=== PATIENT | male | born 1940 | race Asian ===

== ENCOUNTER 2016-07-05 01:57 | Inpatient (IN) | payer OTHER, MEDICAID ==
--- NOTE | 2016-07-05 02:03 | ED Physician Chart ---
Chief Complaint/HPI - Patient Information Date Seen:: 07/05/16 Time Seen:: 02:00 Chief Complaint:: abnormal labs History of Present Illness:: 76-year-old male with acute, moderate, abnormal labs that were noted yesterday evening. Noted to have slight leukocytosis and elevated BUN. History limited as patient is averbal with tracheostomy and ventilator History provided by EMS, EMS run sheet and transfer documents Historian:: EMS Review:: Nurse's Note Reviewed, EMS run form Reviewed, Transfer documents Reviewed Review of Systems - Review of Systems Other: Complete system review otherwise unremarkable except as noted in HPI. Past Medical History - Past Medical History Past Medical History: HTN, DM, CVA/TIA, PUD/GERD Family History: None Social History: Non Smoker, No Alcohol, No Drug Use, Care Facility Surgical History: other (tracheostomy) Psychiatricy History: Dementia Medication: Reviewed Family Medical History - Family Member Mother History Unknown: Yes Physical Exam - Physical Examination Other:: INITIAL VITAL SIGNS: Reviewed by me GENERAL: Patient is lying on gurney. He is alert but averbal. HEAD: Head is normocephalic. No evidence of trauma. No scalp or facial swelling EYES: No scleral icterus bilaterally ENT: Oropharynx is clear of exudate and erythema NECK: Supple. No meningismus. No masses. No evidence of trauma. No cervical spine bony step-offs or crepitus to palpation RESPIRATORY: Tracheostomy in place on ventilator. Clear to auscultation bilaterally. CV: Regular rate and rhythm. No murmurs, rubs, or gallops ABDOMEN: Soft, non-distended. No masses BACK: No ecchymoses. No evidence of trauma EXTREMITIES: Normal to inspection and palpation. No deformity SKIN: Warm and dry. No obvious rash. No jaundice NEUROLOGIC: Face is symmetric. Withdraws to pain in all extremities Labs/Radiology/EKG Results - Lab Results Results: Lab Results 07/05/16 07/05/16 07/05/16 Range/Units 02:15 02:15 02:15 WBC 10.9 H (4.8-10.8) Th/cmm RBC 2.88 L (3.80-5.80) Mil/cmm Hgb 8.1 L (12.6-17.4) gm/dL Hct 23.3 L* (39.0-49.0) % MCV 80.7 (80-99) fl MCH 28.2 (27.0-31.0) pg MCHC Differential 34.9 (28.0-36.0) pg RDW 16.2 (11.5-20.0) % Plt Count 381 (150-400) Th/cmm MPV 6.8 fl Neutrophils % 54.4 (40.0-80.0) % Lymphocytes % 25.8 (20.0-50.0) % Monocytes % 6.9 (2.0-10.0) % Eosinophils % 12.0 H (0.0-5.0) % Basophils % 0.9 (0.0-2.0) % PT 9.1 L (9.5-11.5) SECONDS INR 0.92 (0.5-1.4) PTT (Actin FS) 28.1 (26.0-38.0) SECONDS Sodium 125 L (136-145) mEq/L Potassium 4.5 (3.5-5.1) mEq/L Chloride 91 L (98-107) mEq/L Carbon Dioxide 30.5 (21.0-31.0) mEq/L Anion Gap 8.0 (7.0-16.0) BUN 33 H (7-25) mg/dL Creatinine 0.7 (0.7-1.3) mg/dL Est GFR ( Amer) TNP Est GFR (Non-Af Amer) TNP BUN/Creatinine Ratio 47.1 Glucose 215 H (70-105) mg/dL Whole Bld Lactic Acid (0.60-2.00) mmol/L Calcium 10.0 (8.6-10.3) mg/dL Total Bilirubin 0.4 (0.3-1.0) mg/dL AST 13 (13-39) U/L ALT 9 (7-52) U/L Alkaline Phosphatase 116 H (34-104) U/L Creatine Kinase 60 (30-223) U/L Total Protein 7.3 (6.0-8.3) gm/dL Albumin 3.2 L (4.2-5.5) gm/dL Globulin 4.1 gm/dL Albumin/Globulin Ratio 0.8 L (1.0-1.8) 07/05/16 Range/Units 02:15 WBC (4.8-10.8) Th/cmm RBC (3.80-5.80) Mil/cmm Hgb (12.6-17.4) gm/dL Hct (39.0-49.0) % MCV (80-99) fl MCH (27.0-31.0) pg MCHC Differential (28.0-36.0) pg RDW (11.5-20.0) % Plt Count (150-400) Th/cmm MPV fl Neutrophils % (40.0-80.0) % Lymphocytes % (20.0-50.0) % Monocytes % (2.0-10.0) % Eosinophils % (0.0-5.0) % Basophils % (0.0-2.0) % PT (9.5-11.5) SECONDS INR (0.5-1.4) PTT (Actin FS) (26.0-38.0) SECONDS Sodium (136-145) mEq/L Potassium (3.5-5.1) mEq/L Chloride (98-107) mEq/L Carbon Dioxide (21.0-31.0) mEq/L Anion Gap (7.0-16.0) BUN (7-25) mg/dL Creatinine (0.7-1.3) mg/dL Est GFR ( Amer) Est GFR (Non-Af Amer) BUN/Creatinine Ratio Glucose (70-105) mg/dL Whole Bld Lactic Acid 0.90 (0.60-2.00) mmol/L Calcium (8.6-10.3) mg/dL Total Bilirubin (0.3-1.0) mg/dL AST (13-39) U/L ALT (7-52) U/L Alkaline Phosphatase (34-104) U/L Creatine Kinase (30-223) U/L Total Protein (6.0-8.3) gm/dL Albumin (4.2-5.5) gm/dL Globulin gm/dL Albumin/Globulin Ratio (1.0-1.8) - Radiology Results Results: Single AP VIEW Portable Chest X-ray was interpreted independently and contemporaneously by Catrachito Tena MD: No cardiomegaly Normal mediastinum No lung infiltrates No pneumothorax No soft tissue or bony abnormalities - EKG Interpretations Comments:: 12-lead EKG Interpretation by Catrachito Tena MD: Normal Sinus Rhythm with ventricular rate of 86 beats per minute Normal axis Normal intervals No acute ST or T wave changes. No obvious STEMI ED Septic Shock - . Is Septic Shock (SBP<90, OR Lactate>4 mmol\L) present?: No Reassessment (Disposition) - Reassessment Reassessment:: This patient has a multiple issues. He has anemia with hemoglobin 8. Unknown reason for the anemia. He does have hematuria. Also has hyponatremia. Patient has a leukocytosis. We did provide IV antibiotics. Also provided IV normal saline. Given his multiple issues I discussed the case with Dr. Burgess who will admit the patient to his service for further workup and treatment. Reassessment Condition:: Unchanged - Diagnosis Diagnosis:: Hyponatremia Anemia Leukocytosis Hematuria Hypertension Diabetes mellitus type 2 - Patient Disposition Discharge/Transfer:: Acute Care w/in this hosp Admitted to:: ICU Admitting Medical Physician:: Chito Burgess Time:: 03:23 Condition at Disposition:: Stable
[2016-07-05 02:34] LABS: % BASOPHILS 0.9 % (0.0-2.0); % LYMPHOCYTES 25.8 % (20.0-50.0); % MONOCYTES 6.9 % (2.0-10.0); % NEUTROPHILS 54.4 % (40.0-80.0); HEMOGLOBIN 8.1 gm/dL (12.6-17.4); MEAN CELL VOLUME 80.7 fl (80-99); MEAN CORPUSCULAR HEMOGLOBIN 28.2 pg (27.0-31.0); MEAN CORPUSCULAR HGB CONC 34.9 pg (28.0-36.0); MEAN PLATELET VOLUME 6.8 fl; NEUTROPHILE ABSOLUTE 5.9 Th/cmm (1.8-8.0); PLATELET COUNT 381 Th/cmm (150-400); RED BLOOD COUNT 2.88 Mil/cmm (3.80-5.80); RED CELL DISTRIBUTION WIDTH 16.2 % (11.5-20.0); WHITE BLOOD COUNT 10.9 Th/cmm (4.8-10.8)
[2016-07-05 02:38] LABS: HEMATOCRIT 23.3 % (39.0-49.0)
[2016-07-05 02:46] LABS: ALB/GLOB RATIO 0.8 (1.0-1.8); ALKALINE PHOSPHATASE 116 U/L (34-104); BILIRUBIN,TOTAL 0.4 mg/dL (0.3-1.0); BUN - UREA NITROGEN 33 mg/dL (7-25); BUN/CREATININE RATIO 47.1; CARBON DIOXIDE 30.5 mEq/L (21.0-31.0); CHLORIDE 91 mEq/L (98-107); CREATININE - SERUM 0.7 mg/dL (0.7-1.3); GLUCOSE 215 mg/dL (70-105); POTASSIUM SERUM 4.5 mEq/L (3.5-5.1); SGOT 13 U/L (13-39); SGPT/ALT 9 U/L (7-52); SODIUM SERUM 125 mEq/L (136-145)
[2016-07-05 02:49] LABS: INR 0.92 (0.5-1.4); PROTHROMBIN TIME (TEST) 9.1 SECONDS (9.5-11.5)
[2016-07-05] MEDS ORDERED: cefTRIAXone 1 GM in Sodium Chloride 0.9% 50 ML IV ONE (03:20)
[2016-07-05] MEDS ORDERED: Sodium Chloride 0.9% 1,000 ML IV ONE (03:21)
[2016-07-05 03:34] LABS: URINE BILIRUBIN NEGATIVE (NEGATIVE); URINE BLOOD LARGE (NEGATIVE); URINE COLOR OTHER; URINE GLUCOSE (UA) NEGATIVE (NEGATIVE); URINE KETONE NEGATIVE (NEGATIVE); URINE PH >=9.0; URINE PROTEIN 100 mg/dL (NEGATIVE); URINE UROBILINOGEN 0.2 E.U./dL (0.2 - 1.0)
[2016-07-05 03:35] LABS: URINE RBC >100 /hpf (0-5)
[2016-07-05 03:36] LABS: URINE BACTERIA MODERATE /hpf (NONE SEEN); URINE EPITHELIAL CELLS FEW /lpf (FEW)
[2016-07-05] MEDS ORDERED: Diltiazem 5 mg/mL 5mL Vial IVP STA (04:54)
[2016-07-05] MEDS ORDERED: Diltiazem 5 mg/mL 5mL Vial IVP ONE (04:57)
[2016-07-05] MEDS ORDERED: Diltiazem 5 mg/mL 25mL Vial IV ONE (05:54)
[2016-07-05 09:34] LABS: ANION GAP 9.1 (7.0-16.0); BUN - UREA NITROGEN 27 mg/dL (7-25); CALCIUM SERUM 9.4 mg/dL (8.6-10.3); CARBON DIOXIDE 28.3 mEq/L (21.0-31.0); CHLORIDE 95 mEq/L (98-107); CHOLESTEROL 135 mg/dL (<200); CREATININE - SERUM 0.6 mg/dL (0.7-1.3); GLUCOSE 175 mg/dL (70-105); POTASSIUM SERUM 4.4 mEq/L (3.5-5.1); SODIUM SERUM 128 mEq/L (136-145); TRIGLYCERIDES 92 mg/dL (<150)
[2016-07-05] MEDS: Sodium Chloride 0.9% 1,000 ML IV SCH (09:38)
--- NOTE | 2016-07-05 09:38 | Diagnostic Imaging Report ---
Portal chest x-ray HISTORY: Pain The heart appears enlarged. At the scarring calcination seen in the aorta. Generalized accentuation of the interstitial lung markings. However, no definite focal pulmonary processes are seen. Pleural thickening noted in the right apical region. Multiple surgical clips project over the left chest. Tracheostomy noted. IMPRESSION: 1. Generalized accentuation of the interstitial lung markings. However, no definite acute focal processes are seen. 2. Cardiomegaly with atherosclerotic vascular changes 3. Surgical changes 4. Tracheostomy
[2016-07-05 10:34] LABS: HEMOGLOBIN 7.5 gm/dL (12.6-17.4); MEAN CELL VOLUME 83.1 fl (80-99); MEAN CORPUSCULAR HEMOGLOBIN 28.5 pg (27.0-31.0); MEAN CORPUSCULAR HGB CONC 34.3 pg (28.0-36.0); MEAN PLATELET VOLUME 7.4 fl; PLATELET COUNT 350 Th/cmm (150-400); RED BLOOD COUNT 2.64 Mil/cmm (3.80-5.80); RED CELL DISTRIBUTION WIDTH 16.1 % (11.5-20.0); WHITE BLOOD COUNT 10.9 Th/cmm (4.8-10.8)
[2016-07-05 10:41] LABS: BAND NEUTROPHILE 0 % (0-10); NEUTROPHILS 58 % (40-80); TOTAL CELLS COUNTED 100
[2016-07-05 10:42] LABS: EOSINOPHIL 3 % (0-5)
[2016-07-05] MEDS ORDERED: VTE Chemical Prophylaxis Screen/Admission MC PRN (15:15)
--- NOTE | 2016-07-05 18:18 | General Progress Note ---
Subjective - Review of Systems Service Date: 07/05/16 Objective - Results Result Diagrams: 07/05/16 09:02 07/05/16 09:02 Recent Labs: Laboratory Last Values WBC 10.9 Th/cmm (4.8-10.8) H 07/05/16 09:02 RBC 2.64 Mil/cmm (3.80-5.80) L 07/05/16 09:02 Hgb 7.5 gm/dL (12.6-17.4) L* 07/05/16 09:02 Hct 22.0 % (39.0-49.0) L* 07/05/16 09:02 MCV 83.1 fl (80-99) 07/05/16 09:02 MCH 28.5 pg (27.0-31.0) 07/05/16 09:02 MCHC Differential 34.3 pg (28.0-36.0) 07/05/16 09:02 RDW 16.1 % (11.5-20.0) 07/05/16 09:02 Plt Count 350 Th/cmm (150-400) 07/05/16 09:02 MPV 7.4 fl 07/05/16 09:02 Neutrophils % 54.4 % (40.0-80.0) 07/05/16 02:15 Band Neutrophils % 0 % (0-10) 07/05/16 09:02 Lymphocytes % 25.8 % (20.0-50.0) 07/05/16 02:15 Monocytes % 6.9 % (2.0-10.0) 07/05/16 02:15 Eosinophils % 12.0 % (0.0-5.0) H 07/05/16 02:15 Basophils % 0.9 % (0.0-2.0) 07/05/16 02:15 Neutrophils (Manual) 58 % (40-80) 07/05/16 09:02 Lymphocytes 28 % (20-50) 07/05/16 09:02 Monocytes 11 % (2-10) H 07/05/16 09:02 Eosinophils 3 % (0-5) 07/05/16 09:02 PT 9.1 SECONDS (9.5-11.5) L 07/05/16 02:15 INR 0.92 (0.5-1.4) 07/05/16 02:15 PTT (Actin FS) 28.1 SECONDS (26.0-38.0) 07/05/16 02:15 Sodium 128 mEq/L (136-145) L 07/05/16 09:02 Potassium 4.4 mEq/L (3.5-5.1) 07/05/16 09:02 Chloride 95 mEq/L (98-107) L 07/05/16 09:02 Carbon Dioxide 28.3 mEq/L (21.0-31.0) 07/05/16 09:02 Anion Gap 9.1 (7.0-16.0) 07/05/16 09:02 BUN 27 mg/dL (7-25) H 07/05/16 09:02 Creatinine 0.6 mg/dL (0.7-1.3) L 07/05/16 09:02 Est GFR ( Amer) TNP 07/05/16 09:02 Est GFR (Non-Af Amer) TNP 07/05/16 09:02 BUN/Creatinine Ratio 45.0 07/05/16 09:02 Glucose 175 mg/dL (70-105) H 07/05/16 09:02 Hemoglobin A1c % 7.3 % (4.0-6.0) H 07/05/16 02:15 Whole Bld Lactic Acid 0.90 mmol/L (0.60-2.00) 07/05/16 02:15 Calcium 9.4 mg/dL (8.6-10.3) 07/05/16 09:02 Total Bilirubin 0.4 mg/dL (0.3-1.0) 07/05/16 02:15 AST 13 U/L (13-39) 07/05/16 02:15 ALT 9 U/L (7-52) 07/05/16 02:15 Alkaline Phosphatase 116 U/L (34-104) H 07/05/16 02:15 Creatine Kinase 60 U/L (30-223) 07/05/16 02:15 Total Protein 7.3 gm/dL (6.0-8.3) 07/05/16 02:15 Albumin 3.2 gm/dL (4.2-5.5) L 07/05/16 02:15 Globulin 4.1 gm/dL 07/05/16 02:15 Albumin/Globulin Ratio 0.8 (1.0-1.8) L 07/05/16 02:15 Triglycerides 92 mg/dL (<150) 07/05/16 09:02 Cholesterol 135 mg/dL (<200) 07/05/16 09:02 LDL Cholesterol Direct 82 mg/dL (75-193) 07/05/16 09:02 HDL Cholesterol 41 mg/dL (23-92) 07/05/16 09:02 TSH 5.40 uIU/ml (0.34-5.60) 07/05/16 09:02 Urine Source [place] 07/05/16 03:05 Urine Color OTHER 07/05/16 03:05 Urine Clarity CLOUDY (CLEAR) 07/05/16 03:05 Urine pH >=9.0 07/05/16 03:05 Ur Specific [place] 1.015 (1.005-1.030) 07/05/16 03:05 Urine Protein 100 mg/dL (NEGATIVE) H 07/05/16 03:05 Urine Glucose (UA) NEGATIVE mg/dL (NEGATIVE) 07/05/16 03:05 Urine Ketones NEGATIVE mg/dL (NEGATIVE) 07/05/16 03:05 Urine Blood LARGE (NEGATIVE) H 07/05/16 03:05 Urine Nitrate NEGATIVE (NEGATIVE) 07/05/16 03:05 Urine Bilirubin NEGATIVE (NEGATIVE) 07/05/16 03:05 Urine Urobilinogen 0.2 E.U./dL (0.2 - 1.0) 07/05/16 03:05 Ur Leukocyte Esterase LARGE (NEGATIVE) H 07/05/16 03:05 Urine RBC >100 /hpf (0-5) H 07/05/16 03:05 Urine WBC 10-25 /hpf (0-5) H 07/05/16 03:05 Ur Epithelial Cells FEW /lpf (FEW) 07/05/16 03:05 Urine Bacteria MODERATE /hpf (NONE SEEN) 07/05/16 03:05 Blood Type O POSITIVE 07/05/16 13:38 Antibody Screen NEGATIVE 07/05/16 13:38 Crossmatch See Detail 07/05/16 13:38 - Physical Exam Vitals and I&O: Vital Signs Temp 99.1 F 07/05/16 16:00 Pulse 75 07/05/16 17:45 Resp 18 07/05/16 17:00 BP 131/52 07/05/16 17:45 Pulse Ox 98 07/05/16 17:00 Intake & Output 07/04/16 07/05/16 07/05/16 18:59 06:59 18:59 Intake Total 2100 Balance 2100 Intake: Intake, IV Amount 2100 Sodium Chloride 0.9% 1, 1000 000 ml @ Wide Open IV . Q0M ONE Rx#:[id number] cefTRIAXone 1 gm In 50 Sodium Chloride 0.9% 50 ml @ 100 mls/hr IV X1 ONE Rx#:[id number] Other: Stool Characteristics Soft Formed Brown Active Medications: Current Medications Albuterol/Ipratropium (Duoneb Neb) 3 ml HHN [id number] [facility] Stop: 09/03/16 18:59 Budesonide (Pulmicort) 0.5 mg HHN DAILYRT [facility] Stop: 09/03/16 16:29 Chlorhexidine Gluconate (Peridex) 15 ml MM 0800,2000 [facility] Stop: 09/03/16 19:59 Heparin Sodium (Porcine) (Heparin) 5,000 units SUBQ Q12HR [facility] Stop: 09/03/16 20:59 Sodium Chloride (Nacl 0.9%) 1,000 mls @ 125 mls/hr IV .Q8H [facility] Stop: 09/03/16 03:29 Last Admin: 07/05/16 09:38 Dose: 125 mls/hr Ceftriaxone Sodium 1 gm/ (Sodium Chloride) 50 mls @ 125 mls/hr IV Q24HR [facility] Stop: 09/03/16 20:59 Diltiazem HCl 125 mg/ Dextrose 125 mls @ 5 mls/hr IV TITR TIERNEY; 5 MG/HR PRN Reason: Protocol Stop: 09/03/16 04:57 Last Admin: 07/05/16 06:11 Dose: 5 mg/hr, 5 mls/hr Insulin Aspart (Novolog Insulin Sliding Scale) 0 - 1 units SUBQ Q6HR [facility] PRN Reason: Protocol Stop: 09/03/16 17:59 Miscellaneous (Vte Chemical Prophylaxis Screen/ Admission) 1 ea [facility] PRN PRN PRN Reason: PROTOCOL Stop: 09/03/16 15:14
[2016-07-05] MEDS: Albuterol/Ipratropium Neb 3 ML AERS HHN SCH (18:41)
[2016-07-05] MEDS: Budesonide 0.5 Mg/2 mL Ud HHN SCH (18:41)
[2016-07-05] MEDS: INSULIN ASPART SLIDING SCALE 100 UNITS/ML UNIT SUBQ SCH (19:42)
--- NOTE | 2016-07-05 20:06 | Admit Criteria Form ---
Admit Criteria Forms - Admit Criteria Diagnosis: ATRIAL FIBRILLATION Clinical Indications for Admission to Inpatient Care (Place 'X' for any and all applicable criteria): Admission indicated for ANY ONE of the following(1)(2)(3)(4)(5) : [ ]I. Myocardial ischemia [ ]II. Dyspnea or hypoxemia [ ]III. Hemodynamic instability [ ]IV. Heart failure (e.g., pulmonary edema) (7) [X]V. New-onset (less than 48 hours) atrial fibrillation with high risk for causing complications secondary to comorbidities (eg, symptomatic heart failure) [ ]. Altered mental status [ ]VII. Syncope [ ]VIII. Patient has implantable cardioverter defibrillator that has fired more than once within past 24hr or needs immediate adjustment of settings that cannot be done other than in inpatient setting. (8) [ ]IX. Suspected accessory pathway (e.g., [id number] syndrome) on ECG [ ]X. Recent systemic thromboembolism (eg, stroke) [ ]XI. Medication toxicity (e.g., digitalis) causing arrhythmia(9) [ ]XII. Underlying medical condition that necessitates inpatient care (e.g., thyrotoxicosis, pneumonia) (10) [ ]XIII. Continuous ECG monitoring is required for condition causing arrhythmia (e.g., severe hyperkalemia, hypokalemia, acid-base disturbance).(11)(12)(13) [ ]XIV. Initiation of antiarrhythmic drug therapy is needed in patient at high risk of adverse effects as indicated by ANY ONE of the following: [ ]a) Significant structural heart disease (e.g., reduced ejection fraction, congenital heart disease, valvular heart disease) [ ]b) Prolonged QT interval [ ]c) Underlying sinus node or atrioventricular conduction disturbances [ ]d) Need for treatment with antiarrhythmic drugs that have significant proarrhythmic potential (e.g., dofetilide, sotalol, procainamide) [ ]e) Patient whose sinus rhythm has never been observed on ECG [ ]XV. Intolerable symptoms despite optimal outpatient treatment [ ]XVI. Elective or urgent cardioversion that cannot be performed on outpatient basis or during observation care. [A] (Use also Atrial Fibrillation: Observation Care ) as appropriate.(14) [ ]XVII.Contraindications and/or Inappropriate clinical situations for Observational Care in patients with Atrial Fibrillation, when ANY ONE of the following is required: [ ]a) Patient with High risk of cardiac embolism (e.g, patients with previous cardiac embolism, LVEF < 40%, age >75 and patients with prosthetic valve) 18 [ ]b) Patient with Moderate risk including DM patient, CAD and patient aged 65-75 18 [ ]c) Patient with any change in cardiac biomarker especially troponin should be managed as high risk in an inpatient setting 19 [ ]d) Physician judgement irrespective of ECG and other diagnostic findings 20 [ ]XVIII.General contraindications and/or Inappropriate clinical situations for Observational Care in patients with Atrial Fibrillation, when ANY ONE of the following is required: [ ]a) Prediction of prolongation of LOS based on ANY ONE of the following may be considered as a contraindication for observational care 2, 3, 4, 5, 6, 7, 8, 9, 10, 11 [ ]i) Age > 65 yrs. [ ]ii) Patient arriving by ambulance [ ]iii) Patient with high acuity [ ]iv) Patient requiring vital sign monitoring [ ]v) Patient on IV medication [ ]b) Systolic blood pressures 180mmHg 3,12 [ ]c) Patient with altered mental status including delirium and other alteration of consciousness3 [ ]d) Patient whose discharge disposition will be to a usp home or rehabilitation home should not be managed in Emergency Department Observation Unit. CMS rule requires 3 days hospital stay before such placement.3,13 [ ]e) Patient with failure to thrive due to broad array of etiologies 3,16,17 [ ]f) Inability to ambulate 3,14 Extended stay beyond goal length of stay may be needed for (1)(25)(26): [ ]a) Unstable comorbidities [ ]b) Persistently uncontrolled atrial fibrillation or other arrhythmias [ ]c) Acute thromboembolic event (e.g., stroke, limb ischemia) [ ]d) Need for inpatient attainment of full anticoagulation The original [employer] content created by [employer] has been revised. The portions of the content which have been revised are identified through the use of italic text or in bold, and [employer] has neither reviewed nor approved the modified material. All other unmodified content is copyright [employer]. Please see references footnoted in the original [employer] edition 2016 Admit Criteria Met?: Yes
[2016-07-05] MEDS: Chlorhexidine Gluconate 0.12% 15mL Mouthwash MM SCH (20:44)
[2016-07-05] MEDS ORDERED: cefTRIAXone 1 GM in Sodium Chloride 0.9% 50 ML IV SCH (21:00)
--- NOTE | 2016-07-06 00:23 | Consultation ---
REASON FOR CONSULTATION: Anemia. HISTORY OF PRESENT ILLNESS: This is a 76-year-old male with multiple medical conditions including atrial fibrillation, coronary artery disease, hypertension, diabetes, BPH, GERD. The patient also has a history of prior CVA. It did require prior craniotomy, complicated by intracranial abscess, infection. The patient also has respiratory failure, status post tracheostomy. According to the family, the patient also had dysphagia and has had a PEG tube placed approximately 2 months ago. On admission, the patient was admitted for likely urinary tract infection and possible pneumonia with increased congestion seen on chest x-ray. On admission, the patient was noted to be anemic. Hemoglobin was 7.8. The son at bedside states he has not noticed any overt GI bleeding. He states that the patient had a colonoscopy approximately 10 years ago, which was unremarkable. The patient also had an EGD with a PEG placement done 2 months ago. The patient's son states that his father did have a García catheter in place, which was removed several months ago and they have noticed some blood in his urine. PAST MEDICAL HISTORY: As per HPI. PAST SURGICAL HISTORY: As per HPI. SOCIAL HISTORY: No tobacco, alcohol or drugs. The patient is from a subacute ____ facility. FAMILY HISTORY: No family history of GI malignancies. MEDICATIONS: Please see medication reconciliation form. REVIEW OF SYSTEMS: Unable to obtain given the patient's mental status. PHYSICAL EXAMINATION: VITAL SIGNS: Temperature is 98.9, pulse 79, respirations 16, blood pressure 109/51. GENERAL: In no acute distress, large wound of the cranium on the left side, tracheostomy. CARDIOVASCULAR: Regular rhythm. ABDOMEN: Gastrostomy tube is in place. LABORATORY DATA: White count is 10.9, hemoglobin 7.5, MCV is 83.1, platelets are 350. ASSESSMENT AND PLAN: This is a 76-year-old male with multiple medical conditions with anemia, dysphagia, status post PEG placement. The patient's anemia is likely multifactorial. It likely has a component of chronic disease. There also may be possible hematuria, which was noticed by the family, which is leading to the anemia as well. There has been no obvious overt GI bleeding. At this point, I would like to continue to monitor hemoglobin. I would recommend conservative non-endoscopic management at this time; however, if the patient does show signs of overt GI bleeding, I could then consider endoscopy. Can resume tube feeds as tolerated. Thank you for this consult and allowing me to participate in the care of this patient. JOB# [id number]
--- NOTE | 2016-07-06 03:06 | Consultation ---
REASON FOR CONSULTATION: Help patient with respiratory failure, [id number]. CONSULT NOTE: This is a 76-year-old gentleman who is a local convalescent home resident and the patient was basically admitted up here initially because of hematuria, also electrolyte imbalance, persistent leukocytosis and also has recurrent tachyarrhythmia and the patient initially was admitted to evaluate some basic function, but as the patient was quite tachypneic and tachycardic, hence, the patient was admitted for further evaluation and necessary treatment. Unfortunately, meaningful detailed history is not available to me except for 1. Persistent history of chronic vent. 2. Tracheostomy. 3. Hypertension, diabetes mellitus. 4. CVA. 5. Peptic ulcer disease and gastroesophageal reflux disease. Smoking history not user, as lives in convalescent home for a while, the exact nature is not clear and also there is a history of dementia. ALLERGIES: The patient has no specific allergies that is documented in the chart. PHYSICAL EXAMINATION: GENERAL: This is an elderly looking gentleman, awake, appears to have obvious contractions, both upper and lower extremity and not responding, though opens eyes, looks from side to side and not in any acute respiratory distress. This patient is currently on SIMV of 6 with FIO2 of 30%. VITAL SIGNS: The patient is afebrile, heart rate is 80-90, blood pressure ____, saturation 90s on 30% of oxygen with SIMV of 6. HEENT: Examination of the head is essentially unremarkable. Pupils appear to be equal and reacting to light. Conjunctivae are slightly pallor and oral cavity appears to have dentures, but would not open the mouth. No nuchal rigidity, though patient is quite stiff from side to side. NECK: Veins could not be visualized. Good bilateral carotid upstroke. CHEST: ____a trach at the base of the neck anteriorly, which looks like clean and chest finding shows diminished air entry with occasional rhonchi. HEART: Irregular. ABDOMEN: Shows soft with G-tube. EXTREMITIES: Shows some contractures and some varicose veins on the right side ____. LABORATORY DATA: Initial study, white count is 10.9 K, hemoglobin 8.1 and patient's PT/INR, INR is 0.9, which is therapeutic range. Sodium is 125, BUN is 33 and patient's sugar is 215 and hemoglobin A1c 7.3, alkaline phosphatase 116 and repeat hemoglobin shows slight drop with hemoglobin 8.5 and electrolytes show slight improvement. Chest x-ray shows some blunting of costophrenic angle, more left than the right side with slight interstitial increased changes on right mid lower lobe area. IMPRESSION: 1. The patient has [id number] respiratory failure, probably a remote possibility of pneumonia, left side. 2. Complicated by anemia making it more worse respiratory status. PLANS AND SUGGESTIONS: We will continue current treatment including blood transfusion if indicated by Dr. Burgess. We will go ahead and give inhaled nebulized breathing treatment. We will check the baseline blood gases and chest x-ray tomorrow and also check with the cultures, etc., and go from there. JOB# [id number]
[2016-07-06] MEDS: Sodium Chloride 0.9% 1,000 ML IV SCH ×2 (03:18→16:42)
[2016-07-06] MEDS: Budesonide 0.5 Mg/2 mL Ud HHN SCH ×2 (07:21→21:12)
[2016-07-06] MEDS: Albuterol/Ipratropium Neb 3 ML AERS HHN SCH ×4 (07:21→21:11)
[2016-07-06 07:54] LABS: % BASOPHILS 0.8 % (0.0-2.0); % EOSINOPHILS 3.6 % (0.0-5.0); % LYMPHOCYTES 15.9 % (20.0-50.0); % MONOCYTES 10.6 % (2.0-10.0); % NEUTROPHILS 69.1 % (40.0-80.0); MEAN CELL VOLUME 80.5 fl (80-99); MEAN CORPUSCULAR HEMOGLOBIN 27.4 pg (27.0-31.0); MEAN CORPUSCULAR HGB CONC 34.1 pg (28.0-36.0); NEUTROPHILE ABSOLUTE 6.6 Th/cmm (1.8-8.0); PLATELET COUNT 318 Th/cmm (150-400); RED BLOOD COUNT 3.64 Mil/cmm (3.80-5.80); RED CELL DISTRIBUTION WIDTH 15.2 % (11.5-20.0); WHITE BLOOD COUNT 9.5 Th/cmm (4.8-10.8)
[2016-07-06 07:56] LABS: HEMATOCRIT 29.3 % (39.0-49.0)
[2016-07-06] MEDS: INSULIN ASPART SLIDING SCALE 100 UNITS/ML UNIT SUBQ SCH ×2 (08:03→08:05)
[2016-07-06 08:04] LABS: ALB/GLOB RATIO 0.7 (1.0-1.8); ALKALINE PHOSPHATASE 81 U/L (34-104); ANION GAP 11.4 (7.0-16.0); BILIRUBIN,TOTAL 0.4 mg/dL (0.3-1.0); BUN - UREA NITROGEN 21 mg/dL (7-25); CALCIUM SERUM 8.9 mg/dL (8.6-10.3); CARBON DIOXIDE 25.5 mEq/L (21.0-31.0); CHLORIDE 100 mEq/L (98-107); CREATININE - SERUM 0.6 mg/dL (0.7-1.3); GLUCOSE 207 mg/dL (70-105); MAGNESIUM 2.1 mg/dL (1.9-2.7); POTASSIUM SERUM 3.9 mEq/L (3.5-5.1); SGOT 13 U/L (13-39); SGPT/ALT 13 U/L (7-52); SODIUM SERUM 133 mEq/L (136-145)
--- NOTE | 2016-07-06 09:03 | General Progress Note ---
Objective - Results Result Diagrams: 07/06/16 07:30 07/06/16 07:30 Recent Labs: Laboratory Last Values WBC 9.5 Th/cmm (4.8-10.8) 07/06/16 07:30 RBC 3.64 Mil/cmm (3.80-5.80) L 07/06/16 07:30 Hgb 10.0 gm/dL (12.6-17.4) L D 07/06/16 07:30 Hct 29.3 % (39.0-49.0) L D 07/06/16 07:30 MCV 80.5 fl (80-99) 07/06/16 07:30 MCH 27.4 pg (27.0-31.0) 07/06/16 07:30 MCHC Differential 34.1 pg (28.0-36.0) 07/06/16 07:30 RDW 15.2 % (11.5-20.0) 07/06/16 07:30 Plt Count 318 Th/cmm (150-400) 07/06/16 07:30 MPV 7.0 fl 07/06/16 07:30 Neutrophils % 69.1 % (40.0-80.0) 07/06/16 07:30 Band Neutrophils % 0 % (0-10) 07/05/16 09:02 Lymphocytes % 15.9 % (20.0-50.0) L 07/06/16 07:30 Monocytes % 10.6 % (2.0-10.0) H 07/06/16 07:30 Eosinophils % 3.6 % (0.0-5.0) 07/06/16 07:30 Basophils % 0.8 % (0.0-2.0) 07/06/16 07:30 Neutrophils (Manual) 58 % (40-80) 07/05/16 09:02 Lymphocytes 28 % (20-50) 07/05/16 09:02 Monocytes 11 % (2-10) H 07/05/16 09:02 Eosinophils 3 % (0-5) 07/05/16 09:02 PT 9.1 SECONDS (9.5-11.5) L 07/05/16 02:15 INR 0.92 (0.5-1.4) 07/05/16 02:15 PTT (Actin FS) 28.1 SECONDS (26.0-38.0) 07/05/16 02:15 Sodium 133 mEq/L (136-145) L 07/06/16 07:30 Potassium 3.9 mEq/L (3.5-5.1) 07/06/16 07:30 Chloride 100 mEq/L (98-107) 07/06/16 07:30 Carbon Dioxide 25.5 mEq/L (21.0-31.0) 07/06/16 07:30 Anion Gap 11.4 (7.0-16.0) 07/06/16 07:30 BUN 21 mg/dL (7-25) 07/06/16 07:30 Creatinine 0.6 mg/dL (0.7-1.3) L 07/06/16 07:30 Est GFR ( Amer) TNP 07/06/16 07:30 Est GFR (Non-Af Amer) TNP 07/06/16 07:30 BUN/Creatinine Ratio 35.0 07/06/16 07:30 Glucose 207 mg/dL (70-105) H 07/06/16 07:30 POC Glucose 147 MG/DL (70 - 105) H 07/06/16 00:55 Hemoglobin A1c % 7.3 % (4.0-6.0) H 07/05/16 02:15 Whole Bld Lactic Acid 0.90 mmol/L (0.60-2.00) 07/05/16 02:15 Calcium 8.9 mg/dL (8.6-10.3) 07/06/16 07:30 Magnesium 2.1 mg/dL (1.9-2.7) 07/06/16 07:30 Total Bilirubin 0.4 mg/dL (0.3-1.0) 07/06/16 07:30 AST 13 U/L (13-39) 07/06/16 07:30 ALT 13 U/L (7-52) 07/06/16 07:30 Alkaline Phosphatase 81 U/L (34-104) 07/06/16 07:30 Ammonia 39 umol/L (16-53) 07/06/16 07:30 Creatine Kinase 60 U/L (30-223) 07/05/16 02:15 Total Protein 6.8 gm/dL (6.0-8.3) 07/06/16 07:30 Albumin 2.9 gm/dL (4.2-5.5) L 07/06/16 07:30 Globulin 3.9 gm/dL 07/06/16 07:30 Albumin/Globulin Ratio 0.7 (1.0-1.8) L 07/06/16 07:30 Triglycerides 92 mg/dL (<150) 07/05/16 09:02 Cholesterol 135 mg/dL (<200) 07/05/16 09:02 LDL Cholesterol Direct 82 mg/dL (75-193) 07/05/16 09:02 HDL Cholesterol 41 mg/dL (23-92) 07/05/16 09:02 TSH 5.40 uIU/ml (0.34-5.60) 07/05/16 09:02 Urine Source FIG[place] 07/05/16 03:05 Urine Color OTHER 07/05/16 03:05 Urine Clarity CLOUDY (CLEAR) 07/05/16 03:05 Urine pH >=9.0 07/05/16 03:05 Ur Specific [place] 1.015 (1.005-1.030) 07/05/16 03:05 Urine Protein 100 mg/dL (NEGATIVE) H 07/05/16 03:05 Urine Glucose (UA) NEGATIVE mg/dL (NEGATIVE) 07/05/16 03:05 Urine Ketones NEGATIVE mg/dL (NEGATIVE) 07/05/16 03:05 Urine Blood LARGE (NEGATIVE) H 07/05/16 03:05 Urine Nitrate NEGATIVE (NEGATIVE) 07/05/16 03:05 Urine Bilirubin NEGATIVE (NEGATIVE) 07/05/16 03:05 Urine Urobilinogen 0.2 E.U./dL (0.2 - 1.0) 07/05/16 03:05 Ur Leukocyte Esterase LARGE (NEGATIVE) H 07/05/16 03:05 Urine RBC >100 /hpf (0-5) H 07/05/16 03:05 Urine WBC 10-25 /hpf (0-5) H 07/05/16 03:05 Ur Epithelial Cells FEW /lpf (FEW) 07/05/16 03:05 Urine Bacteria MODERATE /hpf (NONE SEEN) 07/05/16 03:05 Blood Type O POSITIVE 07/05/16 13:38 Antibody Screen NEGATIVE 07/05/16 13:38 Crossmatch See Detail 07/05/16 13:38 - Physical Exam Vitals and I&O: Vital Signs Temp 99.0 F 07/06/16 04:00 Pulse 111 07/06/16 07:25 Resp 20 07/06/16 06:00 BP 159/75 07/06/16 06:00 Pulse Ox 96 07/06/16 07:25 Intake & Output 07/05/16 07/06/16 07/06/16 18:59 06:59 18:59 Intake Total 1500 400 Output Total 500 800 Balance 1000 -400 Intake: Intake, IV Amount 1000 50 Sodium Chloride 0.9% 1, 1000 000 ml @ 125 mls/hr IV . Q8H [facility] Rx#:[id number] cefTRIAXone 1 gm In 50 Sodium Chloride 0.9% 50 ml @ 125 mls/hr IV Q24HR [facility] Rx#:[id number] Oral 0 Tube Feeding 200 Blood Product 500 Other 150 Output: Urine 500 800 Other: # Bowel Movements 2 1 Stool Characteristics Soft Brown Formed Brown Active Medications: Current Medications Albuterol/Ipratropium (Duoneb Neb) 3 ml HHN [id number] [facility] Stop: 09/03/16 18:59 Last Admin: 07/06/16 07:21 Dose: 3 ml Budesonide (Pulmicort) 0.5 mg HHN DAILYRT [facility] Stop: 09/03/16 16:29 Last Admin: 07/06/16 07:21 Dose: 0.5 mg Chlorhexidine Gluconate (Peridex) 15 ml MM 0800,2000 [facility] Stop: 09/03/16 19:59 Last Admin: 07/05/16 20:44 Dose: 15 ml Heparin Sodium (Porcine) (Heparin) 5,000 units SUBQ Q12HR [facility] Stop: 09/03/16 20:59 Last Admin: 07/05/16 21:59 Dose: 5,000 units Hydralazine HCl (Apresoline) 50 mg PO TID [facility] Stop: 09/04/16 00:14 Last Admin: 07/06/16 00:26 Dose: 50 mg Sodium Chloride (Nacl 0.9%) 1,000 mls @ 125 mls/hr IV .Q8H [facility] Stop: 09/03/16 03:29 Last Admin: 07/06/16 03:18 Dose: 125 mls/hr Ceftriaxone Sodium 1 gm/ (Sodium Chloride) 50 mls @ 125 mls/hr IV Q24HR [facility] Stop: 09/03/16 20:59 Last Infusion: 07/05/16 22:45 Dose: Infused Diltiazem HCl 125 mg/ Dextrose 125 mls @ 5 mls/hr IV TITR [facility]; 5 MG/HR PRN Reason: Protocol Stop: 09/03/16 04:57 Last Admin: 07/05/16 06:11 Dose: 5 mg/hr, 5 mls/hr Insulin Aspart (Novolog Insulin Sliding Scale) 0 - 1 units SUBQ Q6HR [facility] PRN Reason: Protocol Stop: 09/03/16 17:59 Last Admin: 07/06/16 08:05 Dose: Not Given Miscellaneous (Vte Chemical Prophylaxis Screen/ Admission) 1 [facility] PRN PRN PRN Reason: PROTOCOL Stop: 09/03/16 15:14
[2016-07-06] MEDS: Chlorhexidine Gluconate 0.12% 15mL Mouthwash MM SCH ×2 (09:12→20:58)
[2016-07-06 09:24] LABS: ABG SOURCE Arterial; ALLEN TEST Positive; BE(B) 5.5 mmol/L (-3.0-3.0); FIO2 30; HCO3 29.9 mmol/L (20.0-26.0); MECH RATE 6; MECH VT 500; PS 15; pH 7.46 (7.35-7.45)
--- NOTE | 2016-07-06 10:11 | Diagnostic Imaging Report ---
Portable chest x-ray HISTORY: Pneumonia Compared to prior exam of the vertebrae 2016, density noted in the left lower hemithorax. Findings may be associated with focal eventration/elevation left hemidiaphragm., Pneumonia is difficult to exclude. If possible, a lateral view may be helpful. The heart size is normal. No hilar or mediastinal abnormalities. IMPRESSION: 1. Density left lower hemithorax. The finding may be associated with eventration/elevation of the left hemidiaphragm. However, parenchymal density including pneumonia is difficult to exclude. If possible, a lateral view may be helpful.
--- NOTE | 2016-07-06 14:47 | Infectious Disease Prog Note ---
Infectious Disease Subjective - Review of Systems Service Date: 07/06/16 Subjective: [id number] Infectious Disease Objective - Results Result Diagrams: 07/06/16 07:30 07/06/16 07:30 Recent Labs: Laboratory Last Values WBC 9.5 Th/cmm (4.8-10.8) 07/06/16 07:30 RBC 3.64 Mil/cmm (3.80-5.80) L 07/06/16 07:30 Hgb 10.0 gm/dL (12.6-17.4) L D 07/06/16 07:30 Hct 29.3 % (39.0-49.0) L D 07/06/16 07:30 MCV 80.5 fl (80-99) 07/06/16 07:30 MCH 27.4 pg (27.0-31.0) 07/06/16 07:30 MCHC Differential 34.1 pg (28.0-36.0) 07/06/16 07:30 RDW 15.2 % (11.5-20.0) 07/06/16 07:30 Plt Count 318 Th/cmm (150-400) 07/06/16 07:30 MPV 7.0 fl 07/06/16 07:30 Neutrophils % 69.1 % (40.0-80.0) 07/06/16 07:30 Band Neutrophils % 0 % (0-10) 07/05/16 09:02 Lymphocytes % 15.9 % (20.0-50.0) L 07/06/16 07:30 Monocytes % 10.6 % (2.0-10.0) H 07/06/16 07:30 Eosinophils % 3.6 % (0.0-5.0) 07/06/16 07:30 Basophils % 0.8 % (0.0-2.0) 07/06/16 07:30 Neutrophils (Manual) 58 % (40-80) 07/05/16 09:02 Lymphocytes 28 % (20-50) 07/05/16 09:02 Monocytes 11 % (2-10) H 07/05/16 09:02 Eosinophils 3 % (0-5) 07/05/16 09:02 PT 9.1 SECONDS (9.5-11.5) L 07/05/16 02:15 INR 0.92 (0.5-1.4) 07/05/16 02:15 PTT (Actin FS) 28.1 SECONDS (26.0-38.0) 07/05/16 02:15 Specimen Source Arterial 07/06/16 09:02 Sample Site Right Radial 07/06/16 09:02 pH 7.46 (7.35-7.45) H 07/06/16 09:02 pCO2 42.0 mmHg (35.0-45.0) 07/06/16 09:02 pO2 84.0 mmHg (80.0-100.0) 07/06/16 09:02 HCO3 29.9 mmol/L (20.0-26.0) H 07/06/16 09:02 Base Excess 5.5 mmol/L (-3.0-3.0) H 07/06/16 09:02 O2 Saturation 97.0 % (92.0-100.0) 07/06/16 09:02 Gary Test Positive 07/06/16 09:02 Vent Rate 6 07/06/16 09:02 Inspired O2 30 07/06/16 09:02 Tidal Volume 500 07/06/16 09:02 PEEP 5 07/06/16 09:02 Pressure (ins/psv/peep) 15 07/06/16 09:02 Critical Value LZHANG 07/06/16 09:02 Sodium 133 mEq/L (136-145) L 07/06/16 07:30 Potassium 3.9 mEq/L (3.5-5.1) 07/06/16 07:30 Chloride 100 mEq/L (98-107) 07/06/16 07:30 Carbon Dioxide 25.5 mEq/L (21.0-31.0) 07/06/16 07:30 Anion Gap 11.4 (7.0-16.0) 07/06/16 07:30 BUN 21 mg/dL (7-25) 07/06/16 07:30 Creatinine 0.6 mg/dL (0.7-1.3) L 07/06/16 07:30 Est GFR ( Amer) TNP 07/06/16 07:30 Est GFR (Non-Af Amer) TNP 07/06/16 07:30 BUN/Creatinine Ratio 35.0 07/06/16 07:30 Glucose 207 mg/dL (70-105) H 07/06/16 07:30 POC Glucose 180 MG/DL (70 - 105) H 07/06/16 12:43 Hemoglobin A1c % 7.3 % (4.0-6.0) H 07/05/16 02:15 Whole Bld Lactic Acid 0.90 mmol/L (0.60-2.00) 07/05/16 02:15 Calcium 8.9 mg/dL (8.6-10.3) 07/06/16 07:30 Magnesium 2.1 mg/dL (1.9-2.7) 07/06/16 07:30 Total Bilirubin 0.4 mg/dL (0.3-1.0) 07/06/16 07:30 AST 13 U/L (13-39) 07/06/16 07:30 ALT 13 U/L (7-52) 07/06/16 07:30 Alkaline Phosphatase 81 U/L (34-104) 07/06/16 07:30 Ammonia 39 umol/L (16-53) 07/06/16 07:30 Creatine Kinase 60 U/L (30-223) 07/05/16 02:15 Total Protein 6.8 gm/dL (6.0-8.3) 07/06/16 07:30 Albumin 2.9 gm/dL (4.2-5.5) L 07/06/16 07:30 Globulin 3.9 gm/dL 07/06/16 07:30 Albumin/Globulin Ratio 0.7 (1.0-1.8) L 07/06/16 07:30 Triglycerides 92 mg/dL (<150) 07/05/16 09:02 Cholesterol 135 mg/dL (<200) 07/05/16 09:02 LDL Cholesterol Direct 82 mg/dL (75-193) 07/05/16 09:02 HDL Cholesterol 41 mg/dL (23-92) 07/05/16 09:02 TSH 5.40 uIU/ml (0.34-5.60) 07/05/16 09:02 Urine Source [place] 07/05/16 03:05 Urine Color OTHER 07/05/16 03:05 Urine Clarity CLOUDY (CLEAR) 07/05/16 03:05 Urine pH >=9.0 07/05/16 03:05 Ur Specific [place] 1.015 (1.005-1.030) 07/05/16 03:05 Urine Protein 100 mg/dL (NEGATIVE) H 07/05/16 03:05 Urine Glucose (UA) NEGATIVE mg/dL (NEGATIVE) 07/05/16 03:05 Urine Ketones NEGATIVE mg/dL (NEGATIVE) 07/05/16 03:05 Urine Blood LARGE (NEGATIVE) H 07/05/16 03:05 Urine Nitrate NEGATIVE (NEGATIVE) 07/05/16 03:05 Urine Bilirubin NEGATIVE (NEGATIVE) 07/05/16 03:05 Urine Urobilinogen 0.2 E.U./dL (0.2 - 1.0) 07/05/16 03:05 Ur Leukocyte Esterase LARGE (NEGATIVE) H 07/05/16 03:05 Urine RBC >100 /hpf (0-5) H 07/05/16 03:05 Urine WBC 10-25 /hpf (0-5) H 07/05/16 03:05 Ur Epithelial Cells FEW /lpf (FEW) 07/05/16 03:05 Urine Bacteria MODERATE /hpf (NONE SEEN) 07/05/16 03:05 Blood Type O POSITIVE 07/05/16 13:38 Antibody Screen NEGATIVE 07/05/16 13:38 Crossmatch See Detail 07/05/16 13:38 - Physical Exam Vitals and I&O: Vital Signs Temp 100 F 07/06/16 08:00 Pulse 89 07/06/16 13:55 Resp 20 07/06/16 11:00 BP 133/52 07/06/16 11:00 Pulse Ox 98 07/06/16 13:55 Intake & Output 07/05/16 07/06/16 07/06/16 18:59 06:59 18:59 Intake Total 1500 400 Output Total 500 800 Balance 1000 -400 Intake: Intake, IV Amount 1000 50 Sodium Chloride 0.9% 1, 1000 000 ml @ 125 mls/hr IV . Q8H [facility] Rx#:[id number] cefTRIAXone 1 gm In 50 Sodium Chloride 0.9% 50 ml @ 125 mls/hr IV Q24HR [facility] Rx#:[id number] Oral 0 Tube Feeding 200 Blood Product 500 Other 150 Output: Urine 500 800 Other: # Bowel Movements 2 1 Stool Characteristics Soft Brown Soft Formed Brown Brown Active Medications: Current Medications Albuterol/Ipratropium (Duoneb Neb) 3 ml HHN [id number] [facility] Stop: 09/03/16 18:59 Last Admin: 07/06/16 11:41 Dose: 3 ml Budesonide (Pulmicort) 0.5 mg HHN DAILYRT [facility] Stop: 09/03/16 16:29 Last Admin: 07/06/16 07:21 Dose: 0.5 mg Chlorhexidine Gluconate (Peridex) 15 ml MM 0800,2000 [facility] Stop: 09/03/16 19:59 Last Admin: 07/06/16 09:12 Dose: 15 ml Heparin Sodium (Porcine) (Heparin) 5,000 units SUBQ Q12HR [facility] Stop: 09/03/16 20:59 Last Admin: 07/06/16 09:11 Dose: 5,000 units Hydralazine HCl (Apresoline) 50 mg PO TID [facility] Stop: 09/04/16 00:14 Last Admin: 07/06/16 09:11 Dose: 50 mg Sodium Chloride (Nacl 0.9%) 1,000 mls @ 125 mls/hr IV .Q8H [facility] Stop: 09/03/16 03:29 Last Admin: 07/06/16 03:18 Dose: 125 mls/hr Diltiazem HCl 125 mg/ Dextrose 125 mls @ 5 mls/hr IV TITR [facility]; 5 MG/HR PRN Reason: Protocol Stop: 09/03/16 04:57 Last Admin: 07/05/16 06:11 Dose: 5 mg/hr, 5 mls/hr Ceftriaxone Sodium 1 gm/ (Sodium Chloride) 100 mls @ 100 mls/hr IV Q24HR [facility] Stop: 09/04/16 20:59 Insulin Aspart (Novolog Insulin Sliding Scale) 0 - 1 units SUBQ Q6HR [facility] PRN Reason: Protocol Stop: 09/03/16 17:59 Last Admin: 07/06/16 08:05 Dose: Not Given Miscellaneous (Vte Chemical Prophylaxis Screen/ Admission) 1 [facility] PRN PRN PRN Reason: PROTOCOL Stop: 09/03/16 15:14
[2016-07-06] MEDS: cefTRIAXone 1 GM in Sodium Chloride 0.9% 100 ML IV SCH (20:50)
--- NOTE | 2016-07-06 23:36 | Consultation ---
The patient of Dr. Burgess. HISTORY AND PHYSICAL: This is a 76-year-old oriental male patient with tracheostomy with shortness of breath, cough with expectoration, pneumonia, came to the hospital. During hospital stay, the patient had supraventricular tachycardia and hence, Cardiology consult was requested. PAST MEDICAL HISTORY: Paroxysmal atrial fibrillation, congestive heart failure, non-ST elevation myocardial infarction, iron deficiency anemia, hypothyroidism, BPH, hyperlipidemia, hypertension, tracheostomy. FAMILY HISTORY: Unremarkable. SOCIAL HISTORY: No history of smoking, alcohol abuse. ALLERGIES: None. PHYSICAL EXAMINATION: VITAL SIGNS: Blood pressure 130/82, pulse 78, pulse 150, respirations on tracheostomy. NECK: JVD flat. Thyroid not palpable. Lymph nodes not palpable. LUNGS: Bilateral bronchovesicular breath sounds, wheezing, rhonchi. HEART: Regular rhythm, S1, S2, S3, S4, supraventricular tachycardia. ABDOMEN: Soft. Liver, spleen not palpable. The patient has a PEG in place. NEUROLOGIC: No focal neurological deficit. EXTREMITIES: Peripheral pulses 1+. No pedal edema. CLINICAL IMPRESSION: Supraventricular tachycardia, paroxysmal atrial fibrillation, congestive heart failure, diastolic dysfunction, non-ST elevation myocardial infarction, iron deficiency anemia, hypothyroidism, BPH, hypertension, hyperlipidemia, dementia and CVA with late effect. PLAN: The patient ____to control the heart rate. Continue IV antibiotics. Monitor the patient closely. JOB# [id number]
--- NOTE | 2016-07-06 23:52 | Consultation ---
INFECTIOUS DISEASE CONSULTATION: REFERRING PHYSICIAN: Gurpreet Burgess M.D. REASON FOR CONSULTATION: UTI, pneumonia. HISTORY OF PRESENT ILLNESS: The patient is a 76-year-old male with past medical history of vent-dependent respiratory failure, tracheostomy, hypertension, diabetes mellitus type 2, CVA, peptic ulcer disease, GERD, admitted yesterday for hematuria. The patient was also found to have persistent leukocytosis. He was found to have tachypnea and tachycardia. So, he was admitted to the hospital for further care. On initial evaluation, the patient's temperature was 98.3 degrees Fahrenheit and WBC count was 10,900. Urinalysis showed pyuria, bacteriuria and hematuria. The patient was started on Rocephin and ID consult was called for further antibiotic management. Besides this, chest x-ray showed density of left lower thorax, suspected elevation of left hemidiaphragm versus pneumonia. ID consult was called for further antibiotic management. PAST MEDICAL HISTORY: Includes diabetes mellitus type 2, hypertension, tracheostomy, vent-dependent respiratory failure, G-tube placement, CVA, peptic ulcer disease, GERD. ALLERGIES: NKDA. MEDICATIONS: As per medication reconciliation sheet. Antibiotic-medrano, the patient is on Rocephin. SOCIAL HISTORY: The patient lives in a nursing facility. He has no history of smoking, alcohol or drug use recently. REVIEW OF SYSTEMS: Unable to obtain. So far, the patient has no fever. PHYSICAL EXAMINATION: CURRENT VITAL SIGNS: Temperature is 100 degrees Fahrenheit, pulse 89, respirations 20, blood pressure 133/52. GENERAL: The patient is comfortable lying in the bed, on the ventilator, status post tracheostomy. HEENT: Head is normocephalic, atraumatic. Oral cavity is moist, pink tongue. Eyes: Pallor is present. NECK: Tracheostomy site is clear. CHEST: Bilateral breath sounds. Dry crackles bilaterally. HEART: S1, S2 within normal limits. Regular rhythm. No murmur. No gallop. ABDOMEN: Soft, nontender, nondistended, globular. Bowel sounds present. PEG site is clear. EXTREMITIES: No cyanosis, no clubbing, no edema. NEUROLOGIC: Opens eyes only. Aphasic. LABORATORY DATA: Current lab shows WBC count is 9500, hemoglobin 10, hematocrit 29.3, platelets are 318,000, neutrophils 69%. Sodium is 133, potassium 3.9, chloride 100, bicarbonate is 25, BUN is 21, creatinine 0.6, glucose is 207. Urinalysis showed large blood, large leukocyte esterase, rbc's more than 100, wbc's 10-25, bacteria moderate. Blood culture 2 sets are negative. Urine culture shows more than 100 Gram-negative rods. Sputum culture shows poor specimen. IMPRESSION: 1. Urinary tract infection. 2. Leukocytosis, improved. 3. Suspect pneumonia. 4. Ventilator-dependent respiratory failure. 5. Cerebrovascular accident. 6. Diabetes mellitus type 2. 7. Hypertension. RECOMMENDATIONS: We will continue [place]. Thank you, Dr. Burgess, for involving me in taking care of this patient. JOB# [id number]
[2016-07-07] MEDS: INSULIN ASPART SLIDING SCALE 100 UNITS/ML UNIT SUBQ SCH ×4 (00:39→18:11)
--- NOTE | 2016-07-07 01:20 | Progress Notes ---
PROBLEM LIST: 1. [id number] respiratory failure. 2. Questionable pneumonia, left basal area. 3. Encephalopathy. 4. Injury surgery on the left side of the face and history of previous trach. SYMPTOMS: Noncommunicative, opens eyes: No respiratory distress, etc. PHYSICAL EXAMINATION: VITAL SIGNS: Temperature is 98, pulse is 100-110, blood pressure is in normotensive range and saturation 98%. NECK: Veins could not be visualized, dressing in the left side of the face. Trach site appears to be okay. CHEST: Shows occasional rhonchi with diminished air entry. HEART: Regular. LABORATORY DATA: The patient's white count is 9.5, hemoglobin 10.0 and ABG shows on SIMV of 6 ____, SpO2 is 84. Electrolytes are okay with sodium 133, potassium is 3.9. Chest x-ray shows some clearing of the left basal haziness. ASSESSMENT: The patient is clinically stable, slowly improving respiratory medrano. PLANS AND SUGGESTIONS: We will go ahead and continue current treatment. Follow through other tests ____ taken few days and go from there. JOB# [id number]
[2016-07-07] MEDS: Sodium Chloride 0.9% 1,000 ML IV SCH (03:17)
[2016-07-07 05:18] LABS: % BASOPHILS 0.6 % (0.0-2.0); % EOSINOPHILS 5.2 % (0.0-5.0); % LYMPHOCYTES 26.9 % (20.0-50.0); % MONOCYTES 7.6 % (2.0-10.0); % NEUTROPHILS 59.7 % (40.0-80.0); HEMATOCRIT 29.8 % (39.0-49.0); HEMOGLOBIN 10.3 gm/dL (12.6-17.4); MEAN CELL VOLUME 82.2 fl (80-99); MEAN CORPUSCULAR HEMOGLOBIN 28.3 pg (27.0-31.0); MEAN CORPUSCULAR HGB CONC 34.4 pg (28.0-36.0); MEAN PLATELET VOLUME 6.7 fl; NEUTROPHILE ABSOLUTE 8.5 Th/cmm (1.8-8.0); PLATELET COUNT 350 Th/cmm (150-400); RED BLOOD COUNT 3.62 Mil/cmm (3.80-5.80); RED CELL DISTRIBUTION WIDTH 15.6 % (11.5-20.0)
[2016-07-07 05:23] LABS: WHITE BLOOD COUNT 14.2 Th/cmm (4.8-10.8)
[2016-07-07 05:47] LABS: ANION GAP 7.2 (7.0-16.0); BUN - UREA NITROGEN 17 mg/dL (7-25); CALCIUM SERUM 9.3 mg/dL (8.6-10.3); CARBON DIOXIDE 26.7 mEq/L (21.0-31.0); CHLORIDE 104 mEq/L (98-107); CREATININE - SERUM 0.5 mg/dL (0.7-1.3); GLUCOSE 194 mg/dL (70-105); POTASSIUM SERUM 3.9 mEq/L (3.5-5.1); SODIUM SERUM 134 mEq/L (136-145)
[2016-07-07] MEDS: Albuterol/Ipratropium Neb 3 ML AERS HHN SCH ×3 (07:45→19:13)
[2016-07-07] MEDS: Budesonide 0.5 Mg/2 mL Ud HHN SCH (07:45)
[2016-07-07 08:10] LABS: T3 FREE 2.1 pg/mL (2.0-4.4); T4 FREE 1.31 ng/dL (0.82-1.77)
[2016-07-07] MEDS: Chlorhexidine Gluconate 0.12% 15mL Mouthwash MM SCH ×2 (08:39→21:12)
--- NOTE | 2016-07-07 09:18 | General Progress Note ---
Subjective - Review of Systems Service Date: 07/07/16 Subjective: awake, on vent, non-verbal Objective - Results Result Diagrams: 07/07/16 04:55 07/07/16 04:55 Recent Labs: Laboratory Last Values WBC 14.2 Th/cmm (4.8-10.8) H D 07/07/16 04:55 RBC 3.62 Mil/cmm (3.80-5.80) L 07/07/16 04:55 Hgb 10.3 gm/dL (12.6-17.4) L 07/07/16 04:55 Hct 29.8 % (39.0-49.0) L 07/07/16 04:55 MCV 82.2 fl (80-99) 07/07/16 04:55 MCH 28.3 pg (27.0-31.0) 07/07/16 04:55 MCHC Differential 34.4 pg (28.0-36.0) 07/07/16 04:55 RDW 15.6 % (11.5-20.0) 07/07/16 04:55 Plt Count 350 Th/cmm (150-400) 07/07/16 04:55 MPV 6.7 fl 07/07/16 04:55 Neutrophils % 59.7 % (40.0-80.0) 07/07/16 04:55 Band Neutrophils % 0 % (0-10) 07/05/16 09:02 Lymphocytes % 26.9 % (20.0-50.0) 07/07/16 04:55 Monocytes % 7.6 % (2.0-10.0) 07/07/16 04:55 Eosinophils % 5.2 % (0.0-5.0) H 07/07/16 04:55 Basophils % 0.6 % (0.0-2.0) 07/07/16 04:55 Neutrophils (Manual) 58 % (40-80) 07/05/16 09:02 Lymphocytes 28 % (20-50) 07/05/16 09:02 Monocytes 11 % (2-10) H 07/05/16 09:02 Eosinophils 3 % (0-5) 07/05/16 09:02 PT 9.1 SECONDS (9.5-11.5) L 07/05/16 02:15 INR 0.92 (0.5-1.4) 07/05/16 02:15 PTT (Actin FS) 28.1 SECONDS (26.0-38.0) 07/05/16 02:15 Specimen Source Arterial 07/06/16 09:02 Sample Site Right Radial 07/06/16 09:02 pH 7.46 (7.35-7.45) H 07/06/16 09:02 pCO2 42.0 mmHg (35.0-45.0) 07/06/16 09:02 pO2 84.0 mmHg (80.0-100.0) 07/06/16 09:02 HCO3 29.9 mmol/L (20.0-26.0) H 07/06/16 09:02 Base Excess 5.5 mmol/L (-3.0-3.0) H 07/06/16 09:02 O2 Saturation 97.0 % (92.0-100.0) 07/06/16 09:02 Gary Test Positive 07/06/16 09:02 Vent Rate 6 07/06/16 09:02 Inspired O2 30 07/06/16 09:02 Tidal Volume 500 07/06/16 09:02 PEEP 5 07/06/16 09:02 Pressure (ins/psv/peep) 15 07/06/16 09:02 Critical Value LZHANG 07/06/16 09:02 Sodium 134 mEq/L (136-145) L 07/07/16 04:55 Potassium 3.9 mEq/L (3.5-5.1) 07/07/16 04:55 Chloride 104 mEq/L (98-107) 07/07/16 04:55 Carbon Dioxide 26.7 mEq/L (21.0-31.0) 07/07/16 04:55 Anion Gap 7.2 (7.0-16.0) 07/07/16 04:55 BUN 17 mg/dL (7-25) 07/07/16 04:55 Creatinine 0.5 mg/dL (0.7-1.3) L 07/07/16 04:55 Est GFR ( Amer) TNP 07/07/16 04:55 Est GFR (Non-Af Amer) TNP 07/07/16 04:55 BUN/Creatinine Ratio 34.0 07/07/16 04:55 Glucose 194 mg/dL (70-105) H 07/07/16 04:55 POC Glucose 185 MG/DL (70 - 105) H 07/07/16 06:18 Hemoglobin A1c % 7.3 % (4.0-6.0) H 07/05/16 02:15 Whole Bld Lactic Acid 0.90 mmol/L (0.60-2.00) 07/05/16 02:15 Calcium 9.3 mg/dL (8.6-10.3) 07/07/16 04:55 Magnesium 2.1 mg/dL (1.9-2.7) 07/06/16 07:30 Total Bilirubin 0.4 mg/dL (0.3-1.0) 07/06/16 07:30 AST 13 U/L (13-39) 07/06/16 07:30 ALT 13 U/L (7-52) 07/06/16 07:30 Alkaline Phosphatase 81 U/L (34-104) 07/06/16 07:30 Ammonia 39 umol/L (16-53) 07/06/16 07:30 Creatine Kinase 60 U/L (30-223) 07/05/16 02:15 B-Natriuretic Peptide 464.0 pg/mL (5.0-100.0) H 07/07/16 04:55 Total Protein 6.8 gm/dL (6.0-8.3) 07/06/16 07:30 Albumin 2.9 gm/dL (4.2-5.5) L 07/06/16 07:30 Globulin 3.9 gm/dL 07/06/16 07:30 Albumin/Globulin Ratio 0.7 (1.0-1.8) L 07/06/16 07:30 Triglycerides 92 mg/dL (<150) 07/05/16 09:02 Cholesterol 135 mg/dL (<200) 07/05/16 09:02 LDL Cholesterol Direct 82 mg/dL (75-193) 07/05/16 09:02 HDL Cholesterol 41 mg/dL (23-92) 07/05/16 09:02 Free T4 1.31 ng/dL (0.82-1.77) 07/06/16 07:30 Free T3 2.1 pg/mL (2.0-4.4) 07/06/16 07:30 TSH 5.40 uIU/ml (0.34-5.60) 07/05/16 09:02 Urine Source FIGUEROA PORT 07/05/16 03:05 Urine Color OTHER 07/05/16 03:05 Urine Clarity CLOUDY (CLEAR) 07/05/16 03:05 Urine pH >=9.0 07/05/16 03:05 Ur Specific [place] 1.015 (1.005-1.030) 07/05/16 03:05 Urine Protein 100 mg/dL (NEGATIVE) H 07/05/16 03:05 Urine Glucose (UA) NEGATIVE mg/dL (NEGATIVE) 07/05/16 03:05 Urine Ketones NEGATIVE mg/dL (NEGATIVE) 07/05/16 03:05 Urine Blood LARGE (NEGATIVE) H 07/05/16 03:05 Urine Nitrate NEGATIVE (NEGATIVE) 07/05/16 03:05 Urine Bilirubin NEGATIVE (NEGATIVE) 07/05/16 03:05 Urine Urobilinogen 0.2 E.U./dL (0.2 - 1.0) 07/05/16 03:05 Ur Leukocyte Esterase LARGE (NEGATIVE) H 07/05/16 03:05 Urine RBC >100 /hpf (0-5) H 07/05/16 03:05 Urine WBC 10-25 /hpf (0-5) H 07/05/16 03:05 Ur Epithelial Cells FEW /lpf (FEW) 07/05/16 03:05 Urine Bacteria MODERATE /hpf (NONE SEEN) 07/05/16 03:05 Blood Type O POSITIVE 07/05/16 13:38 Antibody Screen NEGATIVE 07/05/16 13:38 Crossmatch See Detail 07/05/16 13:38 - Physical Exam Vitals and I&O: Vital Signs Temp 99 F 07/07/16 06:00 Pulse 106 07/07/16 08:39 Resp 21 07/07/16 06:00 BP 159/77 07/07/16 08:39 Pulse Ox 98 07/07/16 06:00 Intake & Output 07/06/16 07/07/16 07/07/16 18:59 06:59 18:59 Intake Total 1000 1780 Output Total 1500 Balance 1000 280 Intake: Intake, IV Amount 1000 1100 Sodium Chloride 0.9% 1, 1000 1000 000 ml @ 125 mls/hr IV . Q8H [facility] Rx#:[id number] cefTRIAXone 1 gm In 100 Sodium Chloride 0.9% 100 ml @ 100 mls/hr IV Q24HR [facility] Rx#:[id number] Oral 0 Tube Feeding 530 Other 150 Output: Urine 1500 Other: # Bowel Movements 1 Stool Characteristics Soft Soft Brown Brown Green Active Medications: Current Medications Albuterol/Ipratropium (Duoneb Neb) 3 ml HHN [id number] [facility] Stop: 09/03/16 18:59 Last Admin: 07/07/16 07:45 Dose: 3 ml Budesonide (Pulmicort) 0.5 mg HHN DAILYRT [facility] Stop: 09/03/16 16:29 Last Admin: 07/07/16 07:45 Dose: 0.5 mg Chlorhexidine Gluconate (Peridex) 15 ml MM 08,1999 [facility] Stop: 09/03/16 19:59 Last Admin: 07/07/16 08:39 Dose: 15 ml Hydralazine HCl (Apresoline) 50 mg PO TID [facility] Stop: 09/04/16 00:14 Last Admin: 07/07/16 08:39 Dose: 50 mg Sodium Chloride (Nacl 0.9%) 1,000 mls @ 125 mls/hr IV .Q8H [facility] Stop: 09/03/16 03:29 Last Admin: 07/07/16 03:17 Dose: 125 mls/hr Diltiazem HCl 125 mg/ Dextrose 125 mls @ 5 mls/hr IV TITR [facility]; 5 MG/HR PRN Reason: Protocol Stop: 09/03/16 04:57 Last Admin: 07/05/16 06:11 Dose: 5 mg/hr, 5 mls/hr Ceftriaxone Sodium 1 gm/ (Sodium Chloride) 100 mls @ 100 mls/hr IV Q24HR [facility] Stop: 09/04/16 20:59 Last Infusion: 07/06/16 21:50 Dose: Infused Insulin Aspart (Novolog Insulin Sliding Scale) 0 units SUBQ Q6HR [facility] PRN Reason: Protocol Stop: 09/03/16 17:59 Last Admin: 07/07/16 06:20 Dose: 2 units Miscellaneous (Vte Chemical Prophylaxis Screen/ Admission) 1 ea [facility] PRN PRN PRN Reason: PROTOCOL Stop: 09/03/16 15:14 Pantoprazole Sodium (Protonix) 40 mg IVP DAILY [facility] Stop: 09/05/16 08:59 Last Admin: 02/07/17 08:39 Dose: 40 mg General: Other (awake, non verbal) HEENT: Atraumatic Neck: Supple Cardiovascular: Regular rate, Normal S1, Normal S2 Lungs: Other (rhonchi) Abdomen: Bowel sounds Assessment/Plan - Assessment Assessment: VDRF RESPIRATORY FAILURE LEUKOCYTOSIS HYPONATREMIA DYSPHAGIA UTI HEMATURIA - Plan Plan: CONTIUNE IVABX VENT SUPPORT CPM
[2016-07-07] MEDS ORDERED: Diltiazem 30 mg Tab PO SCH (12:00)
[2016-07-07] MEDS ORDERED: Albuterol Nebulizer 2.5mg/3mL HHN PRN (14:38)
[2016-07-07] MEDS ORDERED: Ipratropium Neb 0.5 mg/2.5 mL UD HHN PRN (14:38)
[2016-07-07] MEDS ORDERED: Chlorhexidine Gluconate 0.12% 480mL Bottle MM SCH (17:00)
[2016-07-07] MEDS: Diltiazem 30 mg Tab GT SCH (18:11)
[2016-07-07] MEDS: cefTRIAXone 1 GM in Sodium Chloride 0.9% 100 ML IV SCH (21:13)
--- NOTE | 2016-07-07 21:35 | History & Physical ---
HISTORY OF PRESENT ILLNESS: This is a 76-year-old male who is ventilator dependent, who is from a long-term, who was brought here to [facility] for pneumonia and UTI. Upon admission, the patient's hemoglobin was at 7.8. For this reason, the patient is now admitted. PAST MEDICAL HISTORY: CAD, hypertension, diabetes, BPH, GERD and CVA. PAST SURGICAL HISTORY: Tracheostomy, PEG placement. SOCIAL HISTORY: The patient lives in subacute long-term. FAMILY HISTORY: Noncontributory. MEDICATIONS: Please see medication reconciliation form. REVIEW OF SYSTEMS: Unable to obtain due the patient's mental status. PHYSICAL EXAMINATION: GENERAL: Awake, in no apparent distress. VITAL SIGNS: Temperature 97.2, heart rate 83, respirations of 18, blood pressure 110/67. CARDIOVASCULAR: Regular rhythm. ABDOMEN: Soft, nontender. LUNGS: Rhonchi bilaterally. LABORATORY RESULTS: WBC 10.9, H and H ____, platelets 350. ASSESSMENT: 1. Dysphagia. 2. Ventilator dependent. 3. Anemia. 4. Hematuria. 5. Urinary tract infection. PLAN: We will have Infectious Disease to see the patient, IV antibiotics and monitor the patient's hemoglobin and hematocrit. JOB# [id number]
[2016-07-07 21:36] LABS: pH 7.44 (7.35-7.45)
[2016-07-07 21:37] LABS: BE(B) 4.5 mmol/L (-3.0-3.0); HCO3 29.2 mmol/L (20.0-26.0)
[2016-07-07 21:38] LABS: ALLEN TEST pos; FIO2 30; MECH RATE 3; MECH VT 500
[2016-07-07 21:39] LABS: PS 10
--- NOTE | 2016-07-07 23:51 | Infectious Disease Prog Note ---
Infectious Disease Subjective - Review of Systems Service Date: 07/07/16 Subjective: Remains intubated on the ventilator support. Infectious Disease Objective - Results Result Diagrams: 07/07/16 04:55 07/07/16 04:55 Recent Labs: Laboratory Last Values WBC 14.2 Th/cmm (4.8-10.8) H D 07/07/16 04:55 RBC 3.62 Mil/cmm (3.80-5.80) L 07/07/16 04:55 Hgb 10.3 gm/dL (12.6-17.4) L 07/07/16 04:55 Hct 29.8 % (39.0-49.0) L 07/07/16 04:55 MCV 82.2 fl (80-99) 07/07/16 04:55 MCH 28.3 pg (27.0-31.0) 07/07/16 04:55 MCHC Differential 34.4 pg (28.0-36.0) 07/07/16 04:55 RDW 15.6 % (11.5-20.0) 07/07/16 04:55 Plt Count 350 Th/cmm (150-400) 07/07/16 04:55 MPV 6.7 fl 07/07/16 04:55 Neutrophils % 59.7 % (40.0-80.0) 07/07/16 04:55 Band Neutrophils % 0 % (0-10) 07/05/16 09:02 Lymphocytes % 26.9 % (20.0-50.0) 07/07/16 04:55 Monocytes % 7.6 % (2.0-10.0) 07/07/16 04:55 Eosinophils % 5.2 % (0.0-5.0) H 07/07/16 04:55 Basophils % 0.6 % (0.0-2.0) 07/07/16 04:55 Neutrophils (Manual) 58 % (40-80) 07/05/16 09:02 Lymphocytes 28 % (20-50) 07/05/16 09:02 Monocytes 11 % (2-10) H 07/05/16 09:02 Eosinophils 3 % (0-5) 07/05/16 09:02 PT 9.1 SECONDS (9.5-11.5) L 07/05/16 02:15 INR 0.92 (0.5-1.4) 07/05/16 02:15 PTT (Actin FS) 28.1 SECONDS (26.0-38.0) 07/05/16 02:15 Specimen Source arterial 07/07/16 09:00 Sample Site rr 07/07/16 09:00 pH 7.44 (7.35-7.45) 07/07/16 09:00 pCO2 43.0 mmHg (35.0-45.0) 07/07/16 09:00 pO2 94.0 mmHg (80.0-100.0) 07/07/16 09:00 HCO3 29.2 mmol/L (20.0-26.0) H 07/07/16 09:00 Base Excess 4.5 mmol/L (-3.0-3.0) H 07/07/16 09:00 O2 Saturation 98.0 % (92.0-100.0) 07/07/16 09:00 Gary Test pos 07/07/16 09:00 Vent Rate 3 07/07/16 09:00 Inspired O2 30 07/07/16 09:00 Tidal Volume 500 07/07/16 09:00 PEEP 4 07/07/16 09:00 Pressure (ins/psv/peep) 10 07/07/16 09:00 Critical Value cl 07/07/16 09:00 Sodium 134 mEq/L (136-145) L 07/07/16 04:55 Potassium 3.9 mEq/L (3.5-5.1) 07/07/16 04:55 Chloride 104 mEq/L (98-107) 07/07/16 04:55 Carbon Dioxide 26.7 mEq/L (21.0-31.0) 07/07/16 04:55 Anion Gap 7.2 (7.0-16.0) 07/07/16 04:55 BUN 17 mg/dL (7-25) 07/07/16 04:55 Creatinine 0.5 mg/dL (0.7-1.3) L 07/07/16 04:55 Est GFR ( Amer) TNP 07/07/16 04:55 Est GFR (Non-Af Amer) TNP 07/07/16 04:55 BUN/Creatinine Ratio 34.0 07/07/16 04:55 Glucose 194 mg/dL (70-105) H 07/07/16 04:55 POC Glucose 182 MG/DL (70 - 105) H 07/07/16 18:08 Hemoglobin A1c % 7.3 % (4.0-6.0) H 07/05/16 02:15 Whole Bld Lactic Acid 0.90 mmol/L (0.60-2.00) 07/05/16 02:15 Calcium 9.3 mg/dL (8.6-10.3) 07/07/16 04:55 Magnesium 2.1 mg/dL (1.9-2.7) 07/06/16 07:30 Total Bilirubin 0.4 mg/dL (0.3-1.0) 07/06/16 07:30 AST 13 U/L (13-39) 07/06/16 07:30 ALT 13 U/L (7-52) 07/06/16 07:30 Alkaline Phosphatase 81 U/L (34-104) 07/06/16 07:30 Ammonia 39 umol/L (16-53) 07/06/16 07:30 Creatine Kinase 60 U/L (30-223) 07/05/16 02:15 B-Natriuretic Peptide 464.0 pg/mL (5.0-100.0) H 07/07/16 04:55 Total Protein 6.8 gm/dL (6.0-8.3) 07/06/16 07:30 Albumin 2.9 gm/dL (4.2-5.5) L 07/06/16 07:30 Globulin 3.9 gm/dL 07/06/16 07:30 Albumin/Globulin Ratio 0.7 (1.0-1.8) L 07/06/16 07:30 Triglycerides 92 mg/dL (<150) 07/05/16 09:02 Cholesterol 135 mg/dL (<200) 07/05/16 09:02 LDL Cholesterol Direct 82 mg/dL (75-193) 07/05/16 09:02 HDL Cholesterol 41 mg/dL (23-92) 07/05/16 09:02 Free T4 1.31 ng/dL (0.82-1.77) 07/06/16 07:30 Free T3 2.1 pg/mL (2.0-4.4) 07/06/16 07:30 TSH 5.40 uIU/ml (0.34-5.60) 07/05/16 09:02 Urine Source FIGUEROA PORT 07/05/16 03:05 Urine Color OTHER 07/05/16 03:05 Urine Clarity CLOUDY (CLEAR) 07/05/16 03:05 Urine pH >=9.0 07/05/16 03:05 Ur Specific [place] 1.015 (1.005-1.030) 07/05/16 03:05 Urine Protein 100 mg/dL (NEGATIVE) H 07/05/16 03:05 Urine Glucose (UA) NEGATIVE mg/dL (NEGATIVE) 07/05/16 03:05 Urine Ketones NEGATIVE mg/dL (NEGATIVE) 07/05/16 03:05 Urine Blood LARGE (NEGATIVE) H 07/05/16 03:05 Urine Nitrate NEGATIVE (NEGATIVE) 07/05/16 03:05 Urine Bilirubin NEGATIVE (NEGATIVE) 07/05/16 03:05 Urine Urobilinogen 0.2 E.U./dL (0.2 - 1.0) 07/05/16 03:05 Ur Leukocyte Esterase LARGE (NEGATIVE) H 07/05/16 03:05 Urine RBC >100 /hpf (0-5) H 07/05/16 03:05 Urine WBC 10-25 /hpf (0-5) H 07/05/16 03:05 Ur Epithelial Cells FEW /lpf (FEW) 07/05/16 03:05 Urine Bacteria MODERATE /hpf (NONE SEEN) 07/05/16 03:05 Blood Type O POSITIVE 07/05/16 13:38 Antibody Screen NEGATIVE 07/05/16 13:38 Crossmatch See Detail 07/05/16 13:38 - Physical Exam Vitals and I&O: Vital Signs Temp 98.2 F 07/07/16 20:00 Pulse 92 07/07/16 22:44 Resp 22 07/07/16 20:00 BP 157/64 07/07/16 21:13 Pulse Ox 97 07/07/16 22:44 Intake & Output 07/07/16 07/07/16 07/08/16 06:59 18:59 06:59 Intake Total 1780 520 Output Total 1500 2050 Balance 280 -1530 Intake: Intake, IV Amount 1100 Sodium Chloride 0.9% 1, 1000 000 ml @ 125 mls/hr IV . Q8H [facility] Rx#:[id number] cefTRIAXone 1 gm In 100 Sodium Chloride 0.9% 100 ml @ 100 mls/hr IV Q24HR [facility] Rx#:[id number] Oral 0 Tube Feeding 530 520 Other 150 Output: Urine 1500 2050 Other: # Bowel Movements 1 1 Stool Characteristics Soft Soft Brown Brown Green Active Medications: Current Medications Acetaminophen (Tylenol) 650 mg GT Q4HR PRN PRN Reason: Pain or Fever >101 Stop: 09/05/16 14:37 Albuterol Sulfate (Albuterol 2.5mg/3ml Neb Ud) 2.5 mg HHN Q4HR PRN PRN Reason: Shortness of Breath Stop: 09/05/16 14:37 Albuterol/Ipratropium (Duoneb Neb) 3 ml HHN [id number] [facility] Stop: 09/03/16 18:59 Last Admin: 07/07/16 19:13 Dose: 3 ml Amlodipine Besylate (Norvasc) 10 mg GT DAILY [facility] Stop: 09/06/16 08:59 Brimonidine Tartrate (Alphagan 0.2% Oph Sol) 1 drop EACH EYE Q12H [facility] Stop: 09/06/16 08:59 Budesonide (Pulmicort) 0.5 mg HHN DAILYRT [facility] Stop: 09/03/16 16:29 Last Admin: 07/07/16 07:45 Dose: 0.5 mg Carbidopa/Levodopa (Sinemet 25mg-100 Mg) 1 tab GT BID [facility] Stop: 09/05/16 16:59 Last Admin: 07/07/16 17:15 Dose: Not Given Chlorhexidine Gluconate (Peridex) 15 ml MM 0800,2000 [facility] Stop: 09/03/16 19:59 Last Admin: 07/07/16 21:12 Dose: 15 ml Clonidine HCl (Catapres) 0.1 mg GT Q4H PRN PRN Reason: SBP > 160 Stop: 09/05/16 14:37 Diltiazem HCl (Cardizem) 60 mg GT Q6HR [facility] Stop: 09/05/16 11:59 Last Admin: 07/07/16 18:11 Dose: 60 mg Famotidine (Pepcid) 20 mg GT BID [facility] Stop: 09/05/16 16:59 Last Admin: 07/07/16 17:08 Dose: 20 mg Finasteride (Proscar) 5 mg GT DAILY [facility] PRN Reason: Protocol Stop: 09/06/16 08:59 Hydralazine HCl (Apresoline) 50 mg GT TID [facility] Stop: 09/04/16 00:14 Last Admin: 07/07/16 21:13 Dose: 50 mg Sodium Chloride (Nacl 0.9%) 1,000 mls @ 125 mls/hr IV .Q8H [place] Stop: 09/03/16 03:29 Last Admin: 07/07/16 03:17 Dose: 125 mls/hr Ceftriaxone Sodium 1 gm/ (Sodium Chloride) 100 mls @ 100 mls/hr IV Q24HR [facility] Stop: 09/04/16 20:59 Last Admin: 07/07/16 21:13 Dose: 100 mls/hr Insulin Aspart (Novolog Insulin Sliding Scale) 0 units SUBQ Q6H [facility] PRN Reason: Protocol Stop: 09/05/16 17:59 Last Admin: 07/07/16 18:11 Dose: 2 units Ipratropium [place] (Atrovent Neb 0.5mg/2.5ml) 0.5 mg HHN Q4HR PRN PRN Reason: Shortness of Breath Stop: 09/05/16 14:37 Levetiracetam (Keppra) 500 mg PO Q12H [facility] Stop: 09/06/16 08:59 Losartan Potassium (Cozaar) 50 mg GT BID [facility] Stop: 09/05/16 16:59 Last Admin: 07/07/16 17:08 Dose: 50 mg Miscellaneous (Vte Chemical Prophylaxis Screen/ Admission) 1 ea MC PRN PRN PRN Reason: PROTOCOL Stop: 09/03/16 15:14 Pantoprazole Sodium (Protonix) 40 mg IVP DAILY [facility] Stop: 09/05/16 08:59 Last Admin: 07/07/16 08:39 Dose: 40 mg Senna (Senna) 8.6 mg GT BID PRN PRN Reason: Constipation Stop: 09/05/16 14:37 Last Admin: 07/07/16 21:13 Dose: 8.6 mg Sodium Chloride (Nacl Tab) 1 gm GT Q12H [facility] Stop: 09/06/16 08:59 General: no acute distress, well developed, well nourished, cachectic HEENT: PERRLA, EOMI, moist mucous membrane, other (Head: left sided craniotomy.) Neck: supple, no thyromegaly Cardiovascular: S1S2, regular Lungs: clear to auscultation bilaterally, clear to percussion Abdomen: soft, no tender, no distended, no catheter Extremities: no cyanosis, no clubbing, no edema - Procedures Procedures: Procedures Procedure Code Date RESPIRATORY VENTILATION, 24-96 CONSECUTIVE HOURS [id number] 07/05/16 VENT MGMT INPAT INIT DAY 07/05/16 VENT MGMT INPAT SUBQ DAY 07/05/16 Infectious Disease Assmt/Plan - Assessment Assessment: 1. Proeus mirabilis UTi S to rocephin. 2. VDRF. 3. Pneumonia. 4. S/p craniotomy and graft on left scalp. 5. VDRF. 6. CVA. 7. DM2 8. HTN. - Plan Plan: Will continue rocephin.
[2016-07-08] MEDS: INSULIN ASPART SLIDING SCALE 100 UNITS/ML UNIT SUBQ SCH ×3 (00:35→12:18)
[2016-07-08] MEDS: Diltiazem 30 mg Tab GT SCH ×3 (00:35→12:17)
--- NOTE | 2016-07-08 04:45 | Progress Notes ---
PULMONARY PROGRESS NOTE: PROBLEM LIST: 1. Acute on chronic respiratory failure. 2. Altered level of consciousness, history of previous shunt repaired with some plastic surgery. 3. Encephalopathy with electrolyte imbalance. SYMPTOMS: Nil. Noncommunicative, mildly tachypneic, no respiratory distress, etc. PHYSICAL EXAMINATION: VITAL SIGNS: The patient's recorded vitals: Temperature is 99.3, blood pressure 143/66, saturation is 98%. CHEST: Shows diminished air entry with occasional rhonchi. HEART: Regular. ABDOMEN: Soft, nontender. EXTREMITIES: No peripheral edema. LABORATORY DATA: The patient's electrolytes, white count is 14.2, hemoglobin 13.7. ASSESSMENT: The patient's blood gases yesterday were okay. Today, it is pending. Saturating pretty good. PLANS AND SUGGESTIONS: We will go ahead and try the patient on a blow-by and see how he does intermittently and go from there. JOB# [id number]
[2016-07-08 05:20] LABS: % BASOPHILS 0.8 % (0.0-2.0); % EOSINOPHILS 7.7 % (0.0-5.0); % LYMPHOCYTES 14.8 % (20.0-50.0); % MONOCYTES 7.8 % (2.0-10.0); % NEUTROPHILS 68.9 % (40.0-80.0); HEMOGLOBIN 9.3 gm/dL (12.6-17.4); MEAN CELL VOLUME 82.4 fl (80-99); MEAN CORPUSCULAR HEMOGLOBIN 28.8 pg (27.0-31.0); MEAN PLATELET VOLUME 6.6 fl; NEUTROPHILE ABSOLUTE 9.6 Th/cmm (1.8-8.0); PLATELET COUNT 313 Th/cmm (150-400); RED BLOOD COUNT 3.21 Mil/cmm (3.80-5.80); RED CELL DISTRIBUTION WIDTH 15.4 % (11.5-20.0)
[2016-07-08 05:29] LABS: HEMATOCRIT 26.5 % (39.0-49.0)
[2016-07-08] MEDS: Albuterol/Ipratropium Neb 3 ML AERS HHN SCH ×3 (07:51→15:41)
[2016-07-08] MEDS: Budesonide 0.5 Mg/2 mL Ud HHN SCH (07:58)
[2016-07-08] MEDS: Chlorhexidine Gluconate 0.12% 15mL Mouthwash MM SCH (08:00)
[2016-07-08] MEDS ORDERED: Non-Formulary Item 1 EA (Amino Acids/Protein Hydrolys [Pro-Stat Sugar Free Liquid] 30 ML) GT SCH (09:00)
--- NOTE | 2016-07-08 10:05 | General Progress Note ---
Subjective - Review of Systems Subjective: awake, on vent, non-verbal Objective - Results Result Diagrams: 07/08/16 05:00 07/07/16 04:55 Recent Labs: Laboratory Last Values WBC 14.0 Th/cmm (4.8-10.8) H 07/08/16 05:00 RBC 3.21 Mil/cmm (3.80-5.80) L 07/08/16 05:00 Hgb 9.3 gm/dL (12.6-17.4) L 07/08/16 05:00 Hct 26.5 % (39.0-49.0) L D 07/08/16 05:00 MCV 82.4 fl (80-99) 07/08/16 05:00 MCH 28.8 pg (27.0-31.0) 07/08/16 05:00 MCHC Differential 35.0 pg (28.0-36.0) 07/08/16 05:00 RDW 15.4 % (11.5-20.0) 07/08/16 05:00 Plt Count 313 Th/cmm (150-400) 07/08/16 05:00 MPV 6.6 fl 07/08/16 05:00 Neutrophils % 68.9 % (40.0-80.0) 07/08/16 05:00 Band Neutrophils % 0 % (0-10) 07/05/16 09:02 Lymphocytes % 14.8 % (20.0-50.0) L 07/08/16 05:00 Monocytes % 7.8 % (2.0-10.0) 07/08/16 05:00 Eosinophils % 7.7 % (0.0-5.0) H 07/08/16 05:00 Basophils % 0.8 % (0.0-2.0) 07/08/16 05:00 Neutrophils (Manual) 58 % (40-80) 07/05/16 09:02 Lymphocytes 28 % (20-50) 07/05/16 09:02 Monocytes 11 % (2-10) H 07/05/16 09:02 Eosinophils 3 % (0-5) 07/05/16 09:02 PT 9.1 SECONDS (9.5-11.5) L 07/05/16 02:15 INR 0.92 (0.5-1.4) 07/05/16 02:15 PTT (Actin FS) 28.1 SECONDS (26.0-38.0) 07/05/16 02:15 Specimen Source arterial 07/07/16 09:00 Sample Site rr 07/07/16 09:00 pH 7.44 (7.35-7.45) 07/07/16 09:00 pCO2 43.0 mmHg (35.0-45.0) 07/07/16 09:00 pO2 94.0 mmHg (80.0-100.0) 07/07/16 09:00 HCO3 29.2 mmol/L (20.0-26.0) H 07/07/16 09:00 Base Excess 4.5 mmol/L (-3.0-3.0) H 07/07/16 09:00 O2 Saturation 98.0 % (92.0-100.0) 07/07/16 09:00 Gary Test pos 07/07/16 09:00 Vent Rate 3 07/07/16 09:00 Inspired O2 30 07/07/16 09:00 Tidal Volume 500 07/07/16 09:00 PEEP 4 07/07/16 09:00 Pressure (ins/psv/peep) 10 07/07/16 09:00 Critical Value cl 07/07/16 09:00 Sodium 134 mEq/L (136-145) L 07/07/16 04:55 Potassium 3.9 mEq/L (3.5-5.1) 07/07/16 04:55 Chloride 104 mEq/L (98-107) 07/07/16 04:55 Carbon Dioxide 26.7 mEq/L (21.0-31.0) 07/07/16 04:55 Anion Gap 7.2 (7.0-16.0) 07/07/16 04:55 BUN 17 mg/dL (7-25) 07/07/16 04:55 Creatinine 0.5 mg/dL (0.7-1.3) L 07/07/16 04:55 Est GFR ( Amer) TNP 07/07/16 04:55 Est GFR (Non-Af Amer) TNP 07/07/16 04:55 BUN/Creatinine Ratio 34.0 07/07/16 04:55 Glucose 194 mg/dL (70-105) H 07/07/16 04:55 POC Glucose 227 MG/DL (70 - 105) H 07/08/16 06:14 Hemoglobin A1c % 7.3 % (4.0-6.0) H 07/05/16 02:15 Whole Bld Lactic Acid 0.90 mmol/L (0.60-2.00) 07/05/16 02:15 Calcium 9.3 mg/dL (8.6-10.3) 07/07/16 04:55 Magnesium 2.1 mg/dL (1.9-2.7) 07/06/16 07:30 Total Bilirubin 0.4 mg/dL (0.3-1.0) 07/06/16 07:30 AST 13 U/L (13-39) 07/06/16 07:30 ALT 13 U/L (7-52) 07/06/16 07:30 Alkaline Phosphatase 81 U/L (34-104) 07/06/16 07:30 Ammonia 39 umol/L (16-53) 07/06/16 07:30 Creatine Kinase 60 U/L (30-223) 07/05/16 02:15 B-Natriuretic Peptide 464.0 pg/mL (5.0-100.0) H 07/07/16 04:55 Total Protein 6.8 gm/dL (6.0-8.3) 07/06/16 07:30 Albumin 2.9 gm/dL (4.2-5.5) L 07/06/16 07:30 Globulin 3.9 gm/dL 07/06/16 07:30 Albumin/Globulin Ratio 0.7 (1.0-1.8) L 07/06/16 07:30 Triglycerides 92 mg/dL (<150) 07/05/16 09:02 Cholesterol 135 mg/dL (<200) 07/05/16 09:02 LDL Cholesterol Direct 82 mg/dL (75-193) 07/05/16 09:02 HDL Cholesterol 41 mg/dL (23-92) 07/05/16 09:02 Free T4 1.31 ng/dL (0.82-1.77) 07/06/16 07:30 Free T3 2.1 pg/mL (2.0-4.4) 07/06/16 07:30 TSH 5.40 uIU/ml (0.34-5.60) 07/05/16 09:02 Urine Source [place] 07/05/16 03:05 Urine Color OTHER 07/05/16 03:05 Urine Clarity CLOUDY (CLEAR) 07/05/16 03:05 Urine pH >=9.0 07/05/16 03:05 Ur Specific [place] 1.015 (1.005-1.030) 07/05/16 03:05 Urine Protein 100 mg/dL (NEGATIVE) H 07/05/16 03:05 Urine Glucose (UA) NEGATIVE mg/dL (NEGATIVE) 07/05/16 03:05 Urine Ketones NEGATIVE mg/dL (NEGATIVE) 07/05/16 03:05 Urine Blood LARGE (NEGATIVE) H 07/05/16 03:05 Urine Nitrate NEGATIVE (NEGATIVE) 07/05/16 03:05 Urine Bilirubin NEGATIVE (NEGATIVE) 07/05/16 03:05 Urine Urobilinogen 0.2 E.U./dL (0.2 - 1.0) 07/05/16 03:05 Ur Leukocyte Esterase LARGE (NEGATIVE) H 07/05/16 03:05 Urine RBC >100 /hpf (0-5) H 07/05/16 03:05 Urine WBC 10-25 /hpf (0-5) H 07/05/16 03:05 Ur Epithelial Cells FEW /lpf (FEW) 07/05/16 03:05 Urine Bacteria MODERATE /hpf (NONE SEEN) 07/05/16 03:05 Blood Type O POSITIVE 07/05/16 13:38 Antibody Screen NEGATIVE 07/05/16 13:38 Crossmatch See Detail 07/05/16 13:38 - Physical Exam Vitals and I&O: Vital Signs Temp 99.0 F 07/08/16 04:00 Pulse 77 07/08/16 08:54 Resp 19 07/08/16 07:58 BP 161/57 07/08/16 08:54 Pulse Ox 100 07/08/16 07:58 Intake & Output 07/07/16 07/08/16 07/08/16 18:59 06:59 18:59 Intake Total 520 1120 Output Total 205 1170 Balance -1530 -50 Intake: Intake, IV Amount 100 cefTRIAXone 1 gm In 100 Sodium Chloride 0.9% 100 ml @ 100 mls/hr IV Q24HR [facility] Rx#:[id number] Tube Feeding 520 1020 Output: Urine 2050 1170 Stool 0 Other: # Bowel Movements 1 Stool Characteristics Soft Brown Active Medications: Current Medications Acetaminophen (Tylenol) 650 mg GT Q4HR PRN PRN Reason: Pain or Fever >101 Stop: 09/05/16 14:37 Albuterol Sulfate (Albuterol 2.5mg/3ml Neb Ud) 2.5 mg HHN Q4HR PRN PRN Reason: Shortness of Breath Stop: 09/05/16 14:37 Albuterol/Ipratropium (Duoneb Neb) 3 ml HHN [id number] [facility] Stop: 09/03/16 18:59 Last Admin: 07/08/16 07:51 Dose: 3 ml Amlodipine Besylate (Norvasc) 10 mg GT DAILY [facility] Stop: 09/06/16 08:59 Last Admin: 07/08/16 08:53 Dose: 10 mg Brimonidine Tartrate (Alphagan 0.2% Oph Sol) 1 drop EACH EYE Q12H [facility] Stop: 09/06/16 08:59 Last Admin: 07/08/16 08:54 Dose: 1 drop Budesonide (Pulmicort) 0.5 mg HHN DAILYRT [facility] Stop: 09/03/16 16:29 Last Admin: 07/08/16 07:58 Dose: 0.5 mg Carbidopa/Levodopa (Sinemet 25mg-100 Mg) 1 tab GT BID [facility] Stop: 09/05/16 16:59 Last Admin: 07/08/16 08:54 Dose: 1 tab Chlorhexidine Gluconate (Peridex) 15 ml MM 0800,2000 [facility] Stop: 09/03/16 19:59 Last Admin: 07/08/16 08:00 Dose: 15 ml Clonidine HCl (Catapres) 0.1 mg GT Q4H PRN PRN Reason: SBP > 160 Stop: 09/05/16 14:37 Last Admin: 07/08/16 06:20 Dose: 0.1 mg Diltiazem HCl (Cardizem) 60 mg GT Q6HR [facility] Stop: 09/05/16 11:59 Last Admin: 07/08/16 06:20 Dose: 60 mg Famotidine (Pepcid) 20 mg GT BID [facility] Stop: 09/05/16 16:59 Last Admin: 07/08/16 08:54 Dose: 20 mg Finasteride (Proscar) 5 mg GT DAILY [facility] PRN Reason: Protocol Stop: 09/06/16 08:59 Last Admin: 07/08/16 08:54 Dose: 5 mg Hydralazine HCl (Apresoline) 50 mg GT TID [facility] Stop: 09/04/16 00:14 Last Admin: 07/08/16 08:54 Dose: 50 mg Sodium Chloride (Nacl 0.9%) 1,000 mls @ 125 mls/hr IV .Q8H [facility] Stop: 09/03/16 03:29 Last Admin: 07/07/16 03:17 Dose: 125 mls/hr Ceftriaxone Sodium 1 gm/ (Sodium Chloride) 100 mls @ 100 mls/hr IV Q24HR [facility] Stop: 09/04/16 20:59 Last Infusion: 07/07/16 22:13 Dose: Infused Insulin Aspart (Novolog Insulin Sliding Scale) 0 units SUBQ Q6H [facility] PRN Reason: Protocol Stop: 09/05/16 17:59 Last Admin: 07/08/16 06:21 Dose: 3 units Ipratropium [place] (Atrovent Neb 0.5mg/2.5ml) 0.5 mg HHN Q4HR PRN PRN Reason: Shortness of Breath Stop: 09/05/16 14:37 Levetiracetam (Keppra) 500 mg PO Q12H [facility] Stop: 09/06/16 08:59 Last Admin: 07/08/16 08:55 Dose: 500 mg Losartan Potassium (Cozaar) 50 mg GT BID [facility] Stop: 09/05/16 16:59 Last Admin: 07/08/16 08:54 Dose: 50 mg Miscellaneous (Vte Chemical Prophylaxis Screen/ Admission) 1 ea [facility] PRN PRN PRN Reason: PROTOCOL Stop: 09/03/16 15:14 Pantoprazole Sodium (Protonix) 40 mg IVP DAILY [facility] Stop: 09/05/16 08:59 Last Admin: 07/08/16 08:55 Dose: 40 mg Senna (Senna) 8.6 mg GT BID PRN PRN Reason: Constipation Stop: 09/05/16 14:37 Last Admin: 07/07/16 21:13 Dose: 8.6 mg Sodium Chloride (Nacl Tab) 1 gm GT Q12H [facility] Stop: 09/06/16 08:59 Last Admin: 02/08/17 08:55 Dose: 1 gm - Procedures Procedures: Procedures Procedure Code Date RESPIRATORY VENTILATION, 24-96 CONSECUTIVE HOURS [id number] 07/05/16 VENT MGMT INPAT INIT DAY 07/05/16 VENT MGMT INPAT SUBQ DAY 07/05/16 Assessment/Plan - Assessment Assessment: VDRF RESPIRATORY FAILURE LEUKOCYTOSIS HYPONATREMIA DYSPHAGIA UTI HEMATURIA - Plan Plan: CONTIUNE IVABX VENT SUPPORT CPM
[2016-07-08 11:13] LABS: ABG SOURCE Arterial; ALLEN TEST YES; BE(B) 2.4 mmol/L (-3.0-3.0); FIO2 60%; HCO3 26.4 mmol/L (20.0-26.0); pH 7.45 (7.35-7.45)
[2016-07-08] MEDS: Sodium Chloride 0.9% 1,000 ML IV SCH (13:57)
[2016-07-08] MEDS ORDERED: Sodium Chloride 0.9% 1,000 ML IV SCH (14:09)
[2016-07-08] MEDS ORDERED: Probiotic Screen MC PRN (16:12)
--- NOTE | 2016-07-08 19:02 | General Progress Note ---
Subjective - Review of Systems Service Date: 07/08/16 Subjective: PATIENT SEEN AND EXAMINED AT 1000. DELAYED NOTE ENTRY. IMANI ENTERAL FEEDS. Objective - Results Result Diagrams: 07/08/16 05:00 07/07/16 04:55 Recent Labs: Laboratory Last Values WBC 14.0 Th/cmm (4.8-10.8) H 07/08/16 05:00 RBC 3.21 Mil/cmm (3.80-5.80) L 07/08/16 05:00 Hgb 9.3 gm/dL (12.6-17.4) L 07/08/16 05:00 Hct 26.5 % (39.0-49.0) L D 07/08/16 05:00 MCV 82.4 fl (80-99) 07/08/16 05:00 MCH 28.8 pg (27.0-31.0) 07/08/16 05:00 MCHC Differential 35.0 pg (28.0-36.0) 07/08/16 05:00 RDW 15.4 % (11.5-20.0) 07/08/16 05:00 Plt Count 313 Th/cmm (150-400) 07/08/16 05:00 MPV 6.6 fl 07/08/16 05:00 Neutrophils % 68.9 % (40.0-80.0) 07/08/16 05:00 Band Neutrophils % 0 % (0-10) 07/05/16 09:02 Lymphocytes % 14.8 % (20.0-50.0) L 07/08/16 05:00 Monocytes % 7.8 % (2.0-10.0) 07/08/16 05:00 Eosinophils % 7.7 % (0.0-5.0) H 07/08/16 05:00 Basophils % 0.8 % (0.0-2.0) 07/08/16 05:00 Neutrophils (Manual) 58 % (40-80) 07/05/16 09:02 Lymphocytes 28 % (20-50) 07/05/16 09:02 Monocytes 11 % (2-10) H 07/05/16 09:02 Eosinophils 3 % (0-5) 07/05/16 09:02 PT 9.1 SECONDS (9.5-11.5) L 07/05/16 02:15 INR 0.92 (0.5-1.4) 07/05/16 02:15 PTT (Actin FS) 28.1 SECONDS (26.0-38.0) 07/05/16 02:15 Specimen Source Arterial 07/08/16 10:55 Sample Site Left Radial 07/08/16 10:55 pH 7.45 (7.35-7.45) 07/08/16 10:55 pCO2 38.0 mmHg (35.0-45.0) 07/08/16 10:55 pO2 80.0 mmHg (80.0-100.0) 07/08/16 10:55 HCO3 26.4 mmol/L (20.0-26.0) H 07/08/16 10:55 Base Excess 2.4 mmol/L (-3.0-3.0) 07/08/16 10:55 O2 Saturation 96.0 % (92.0-100.0) 07/08/16 10:55 Gary Test YES 07/08/16 10:55 Vent Rate NA 07/08/16 10:55 Inspired O2 60% 07/08/16 10:55 Tidal Volume NA 07/08/16 10:55 PEEP NA 07/08/16 10:55 Pressure (ins/psv/peep) NA 07/08/16 10:55 Critical Value E.[email or web address] 07/08/16 10:55 Sodium 134 mEq/L (136-145) L 07/07/16 04:55 Potassium 3.9 mEq/L (3.5-5.1) 07/07/16 04:55 Chloride 104 mEq/L (98-107) 07/07/16 04:55 Carbon Dioxide 26.7 mEq/L (21.0-31.0) 07/07/16 04:55 Anion Gap 7.2 (7.0-16.0) 07/07/16 04:55 BUN 17 mg/dL (7-25) 07/07/16 04:55 Creatinine 0.5 mg/dL (0.7-1.3) L 07/07/16 04:55 Est GFR ( Amer) TNP 07/07/16 04:55 Est GFR (Non-Af Amer) TNP 07/07/16 04:55 BUN/Creatinine Ratio 34.0 07/07/16 04:55 Glucose 194 mg/dL (70-105) H 07/07/16 04:55 POC Glucose 172 MG/DL (70 - 105) H 07/08/16 12:12 Hemoglobin A1c % 7.3 % (4.0-6.0) H 07/05/16 02:15 Whole Bld Lactic Acid 0.90 mmol/L (0.60-2.00) 07/05/16 02:15 Calcium 9.3 mg/dL (8.6-10.3) 07/07/16 04:55 Magnesium 2.1 mg/dL (1.9-2.7) 07/06/16 07:30 Total Bilirubin 0.4 mg/dL (0.3-1.0) 07/06/16 07:30 AST 13 U/L (13-39) 07/06/16 07:30 ALT 13 U/L (7-52) 07/06/16 07:30 Alkaline Phosphatase 81 U/L (34-104) 07/06/16 07:30 Ammonia 39 umol/L (16-53) 07/06/16 07:30 Creatine Kinase 60 U/L (30-223) 07/05/16 02:15 B-Natriuretic Peptide 464.0 pg/mL (5.0-100.0) H 07/07/16 04:55 Total Protein 6.8 gm/dL (6.0-8.3) 07/06/16 07:30 Albumin 2.9 gm/dL (4.2-5.5) L 07/06/16 07:30 Globulin 3.9 gm/dL 07/06/16 07:30 Albumin/Globulin Ratio 0.7 (1.0-1.8) L 07/06/16 07:30 Triglycerides 92 mg/dL (<150) 07/05/16 09:02 Cholesterol 135 mg/dL (<200) 07/05/16 09:02 LDL Cholesterol Direct 82 mg/dL (75-193) 07/05/16 09:02 HDL Cholesterol 41 mg/dL (23-92) 07/05/16 09:02 Free T4 1.31 ng/dL (0.82-1.77) 07/06/16 07:30 Free T3 2.1 pg/mL (2.0-4.4) 07/06/16 07:30 TSH 5.40 uIU/ml (0.34-5.60) 07/05/16 09:02 Urine Source [place] 07/05/16 03:05 Urine Color OTHER 07/05/16 03:05 Urine Clarity CLOUDY (CLEAR) 07/05/16 03:05 Urine pH >=9.0 07/05/16 03:05 Ur Specific [place] 1.015 (1.005-1.030) 07/05/16 03:05 Urine Protein 100 mg/dL (NEGATIVE) H 07/05/16 03:05 Urine Glucose (UA) NEGATIVE mg/dL (NEGATIVE) 07/05/16 03:05 Urine Ketones NEGATIVE mg/dL (NEGATIVE) 07/05/16 03:05 Urine Blood LARGE (NEGATIVE) H 07/05/16 03:05 Urine Nitrate NEGATIVE (NEGATIVE) 07/05/16 03:05 Urine Bilirubin NEGATIVE (NEGATIVE) 07/05/16 03:05 Urine Urobilinogen 0.2 E.U./dL (0.2 - 1.0) 07/05/16 03:05 Ur Leukocyte Esterase LARGE (NEGATIVE) H 07/05/16 03:05 Urine RBC >100 /hpf (0-5) H 07/05/16 03:05 Urine WBC 10-25 /hpf (0-5) H 07/05/16 03:05 Ur Epithelial Cells FEW /lpf (FEW) 07/05/16 03:05 Urine Bacteria MODERATE /hpf (NONE SEEN) 07/05/16 03:05 Blood Type O POSITIVE 07/05/16 13:38 Antibody Screen NEGATIVE 07/05/16 13:38 Crossmatch See Detail 07/05/16 13:38 - Physical Exam Vitals and I&O: Vital Signs Temp 97.6 F 07/08/16 16:00 Pulse 101 07/08/16 17:14 Resp 25 07/08/16 17:00 BP 148/57 07/08/16 17:14 Pulse Ox 90 07/08/16 17:00 Intake & Output 07/07/16 07/08/16 07/08/16 18:59 06:59 18:59 Intake Total 1520 1120 611.25 Output Total 2050 1170 1100 Balance -530 -50 -488.75 Intake: Intake, IV Amount 1000 100 6.25 Sodium Chloride 0.9% 1, 1000 6.25 000 ml @ 125 mls/hr IV . Q8H [facility] Rx#:[id number] cefTRIAXone 1 gm In 100 Sodium Chloride 0.9% 100 ml @ 100 mls/hr IV Q24HR [facility] Rx#:[id number] Tube Feeding 520 1020 455 Other 150 Output: Urine 2049 1170 1100 Stool 0 Other: # Bowel Movements 1 0 Stool Characteristics Soft Brown General: No acute distress HEENT: Atraumatic Neck: Supple Cardiovascular: Regular rate Lungs: Normal air movement Abdomen: Bowel sounds, Soft - Procedures Procedures: Procedures Procedure Code Date RESPIRATORY VENTILATION, 24-96 CONSECUTIVE HOURS [id number] 07/05/16 VENT MGMT INPAT INIT DAY 07/05/16 VENT MGMT INPAT SUBQ DAY 07/05/16 Assessment/Plan - Assessment Assessment: 1. ANEMIA, MULTIFACTORIAL. 2. HEMATURIA. 3. DYSPHAGIA S/P GT. 4. VDRF - S/P TRACH. - Plan Plan: 1. CONTINUE ENTERAL FEEDS. 2. CONTINUE MEDS. 3. MONITOR HGB; TRANSFUSE PRN. 4. DEFER ENDOSCOPIC WORKUP UNLESS ACTIVE GI BLEEDING.
--- NOTE | 2016-07-09 05:27 | Progress Notes ---
PROBLEM LIST: 1. Acute respiratory failure, improving. 2. Off mechanical ventilation. 3. Previous history of [employer] injury on a previous trach and also on hemodialysis. SYMPTOMS: Nil. Opens eyes, vaguely responding, but otherwise unremarkable, has been trach mass since yesterday, 35% trach collar seems to be tolerating okay. PHYSICAL EXAMINATION: VITAL SIGNS: Temperature is 98.5, heart rate is 80s, respirations in mid 20s, saturation is high 90s on 97%. CHEST: Finding shows diminished air entry with occasional rhonchi. HEART: Regular. ABDOMEN: Soft and nontender. EXTREMITIES: Shows no peripheral edema. ASSESSMENT: The patient clinically appears to be stable. PLANS AND SUGGESTIONS: We will go ahead and continue current treatment. We will follow through other studies, etc., and go from there. JOB# [id number]
[2016-07-09] MEDS ORDERED: Lactobacillus Rhamnosus 10 Billion CFU Capsule PO SCH (09:00)
--- NOTE | 2016-07-09 09:48 | History & Physical ---
HISTORY OF PRESENT ILLNESS: The patient is a 76-year-old male patient, well known to me. The patient was at [facility]. He is a subacute patient, has had a tracheostomy and on ventilator and also has a G-tube. Apparently, the patient started developing some problem with hematuria and developed low hemoglobin as well as high BUN and creatinine, increasing renal failure, was sent to ER. The patient went into atrial fibrillation with systolic blood pressure of 140. The patient was diltiazem and the patient improved and started on . He was brought to the ICU, admitted to the ICU. The patient apparently has high BUN, high creatinine and also he has a wound. The patient has had hematuria. Hemoglobin dropped to 7.5, requiring 2 units of blood transfusion and I had called Dr. Monzon for ID consult and was given IV antibiotics and ____ also Dr. Clarke consulted in wound consult. The patient was unable to communicate. PHYSICAL EXAMINATION: GENERAL: His examination revealed ____. HEAD: Normal. Pallor plus. NECK: He has tracheostomy ____ LUNGS: Bilateral rhonchi. CARDIOVASCULAR SYSTEM: S1, S2 head. ABDOMEN: Status post PEG tube and has ulcerations and also has penile ulceration and gross hematuria. The patient being transfused right now ____ and I am seeing the patient in the ICU. I reviewed Emergency Room notes. IMPRESSION: 1. Sepsis. 2. Urinary tract infection. 3. Severe hematuria. 4. Also decubiti wound. 5. He is status post tracheostomy, status post percutaneous endoscopic gastrostomy, on ventilator. 6. Dehydration. 7. Acute kidney injury. 8. Atrial fibrillation. PLAN: I will go ahead and the patient will continue the antibiotics. Dr. Monzon will continue to see the patient, Dr. Clarke will be on the wound care and I will follow along. I will have Dr. Filiberto Monzon see the patient for Cardio. JOB# [id number]
--- NOTE | 2016-07-13 19:44 | Discharge Summary ---
HOSPITAL COURSE: The patient was admitted from the intermediate through the Emergency Room due to hematuria and abnormal lab results and low hemoglobin and elevated BUN and creatinine. From the ER, the patient was noted to have a UTI and sepsis and also patient developed atrial fibrillation with rapid ventricular response, so the patient was admitted to ICU. The patient received a series of IV antibiotics and also cardiac medrano the patient was stabilized with the help of cardiology consultation and also a renal consultation was provided for worsening kidney functions. The patient was discharged back to [facility]. FINAL DIAGNOSES: Sepsis, UTI, renal failure, atrial fibrillation. JOB# [id number]
== END 2016-07-08 18:03 | DRG 720 ==
LOC: ER 01:57 → ICU 03:45
PROVIDERS: ADMIT Internal Medicine; ATTEND Internal Medicine
PROC: 5A1945Z Respiratory Ventilation, 24-96 Consecutive Hours (ICD-10-PCS; principal; 2016-07-05)
PROC: 30233N1 Transfusion of Nonautologous Red Blood Cells into Peripheral Vein, Percutaneous Approach (ICD-10-PCS; 2016-07-05)
DX: A41.9 Sepsis, unspecified organism (principal); J96.20 Acute and chronic respiratory failure, unspecified whether with hypoxia or hypercapnia; I21.4 Non-ST elevation (NSTEMI) myocardial infarction; G93.40 Encephalopathy, unspecified; Z99.11 Dependence on respirator [ventilator] status; N17.9 Acute kidney failure, unspecified; J18.9 Pneumonia, unspecified organism; I11.0 Hypertensive heart disease with heart failure; I50.30 Unspecified diastolic (congestive) heart failure; Z93.0 Tracheostomy status; F03.90 Unspecified dementia, unspecified severity, without behavioral disturbance, psychotic disturbance, mood disturbance, and anxiety; R13.10 Dysphagia, unspecified; D64.9 Anemia, unspecified; I25.10 Atherosclerotic heart disease of native coronary artery without angina pectoris; E11.9 Type 2 diabetes mellitus without complications; N40.0 Benign prostatic hyperplasia without lower urinary tract symptoms; K21.9 Gastro-esophageal reflux disease without esophagitis; K27.9 Peptic ulcer, site unspecified, unspecified as acute or chronic, without hemorrhage or perforation; E03.9 Hypothyroidism, unspecified; E78.5 Hyperlipidemia, unspecified; I47.1 Supraventricular tachycardia; I69.30 Unspecified sequelae of cerebral infarction; N39.0 Urinary tract infection, site not specified; E87.1 Hypo-osmolality and hyponatremia; I48.0 Paroxysmal atrial fibrillation; D50.9 Iron deficiency anemia, unspecified; R31.9 Hematuria, unspecified; I25.2 Old myocardial infarction; B96.4 Proteus (mirabilis) (morganii) as the cause of diseases classified elsewhere; Z16.19 Resistance to other specified beta lactam antibiotics; Z93.1 Gastrostomy status
CPT/HCPCS: 36415-UA; 36600-90; 71010-TC; 80048-TC; 80053-TC; 80061-TC; 81001-TC; 82140-TC; 82550-TC; 82803-TC; 82948-90; 83036-90; 83605; 83735-TC; 83880-TC; 84439-90; 84443-TC; 84479-90; 85007-TC; 85025-TC; 85027-TC; 85610-TC; 85730-TC; 86850-TC; 86900-TC; 86901-TC; 86922-TC; 87070; 87086-90; 90779; 93005; 94003; 94664; 96379; A4217; C9113; J0696; J1644; J1815; J7030; J7040; P9016; Z7502; Z7610

== ENCOUNTER 2016-08-25 01:15 | Inpatient (IN) | payer OTHER, MEDICAID ==
[2016-08-25 01:55] LABS: MEAN CELL VOLUME 80.8 fl (80-99); MEAN CORPUSCULAR HEMOGLOBIN 27.1 pg (27.0-31.0); MEAN CORPUSCULAR HGB CONC 33.6 pg (28.0-36.0); MEAN PLATELET VOLUME 7.6 fl; PLATELET COUNT 308 Th/cmm (150-400); RED BLOOD COUNT 2.75 Mil/cmm (3.80-5.80); WHITE BLOOD COUNT 20.9 Th/cmm (4.8-10.8)
[2016-08-25 01:59] LABS: HEMOGLOBIN 7.5 gm/dL (12.6-17.4)
[2016-08-25 02:00] LABS: HEMATOCRIT 22.2 % (39.0-49.0)
[2016-08-25 02:08] LABS: INR 1.01 (0.5-1.4); PROTHROMBIN TIME (TEST) 10.5 SECONDS (9.5-11.5)
[2016-08-25 02:17] LABS: ALB/GLOB RATIO 0.7 (1.0-1.8); ALKALINE PHOSPHATASE 176 U/L (34-104); ANION GAP 6.6 (7.0-16.0); BILIRUBIN,TOTAL 0.5 mg/dL (0.3-1.0); BUN - UREA NITROGEN 26 mg/dL (7-25); BUN/CREATININE RATIO 43.3; CALCIUM SERUM 9.7 mg/dL (8.6-10.3); CARBON DIOXIDE 30.1 mEq/L (21.0-31.0); CHLORIDE 100 mEq/L (98-107); CHOLESTEROL 100 mg/dL (<200); CREATININE - SERUM 0.6 mg/dL (0.7-1.3); GLUCOSE 163 mg/dL (70-105); POTASSIUM SERUM 4.7 mEq/L (3.5-5.1); SGOT 12 U/L (13-39); SGPT/ALT 7 U/L (7-52); SODIUM SERUM 132 mEq/L (136-145); TRIGLYCERIDES 69 mg/dL (<150)
[2016-08-25 02:22] LABS: BAND NEUTROPHILE 5 % (0-10); EOSINOPHIL 4 % (0-5); NEUTROPHILS 80 % (40-80); PLATELET ESTIMATE ADEQUATE (NORMAL); TOTAL CELLS COUNTED 100
[2016-08-25 02:23] LABS: HYPOCHROMIA 1+; POLYCHROMASIA 1+
[2016-08-25] MEDS ORDERED: Sodium Chloride 0.45% 500 ML IV ONE (02:42)
--- NOTE | 2016-08-25 02:51 | ED Physician Chart ---
Chief Complaint/HPI - Patient Information Date Seen:: 08/25/16 Time Seen:: 01:48 Chief Complaint:: ANEMIA History of Present Illness:: THIS IS A CHRONICALLY ILL QUADRAPLEGIC PATIENT WITH A TRACH IN PLACE FROM A ASSISTED SENT FOR EVALUATION AND TREATMENT. THE PATIENT IS UNABLE TO SPEAK AND HAD ENCEP Allergies:: Allergies Allergy/AdvReac Type Severity Reaction Status Date / Time No Known Allergies Allergy Verified 07/05/16 02:26 Vitals:: Vital Signs - 8 hr 08/25/16 08/25/16 01:30 02:30 Temp 98.7 F HR 85 76 RR 20 BP 157/65 O2 Sat % 97 100 Family Medical History - Family Member Mother History Unknown: Yes Labs/Radiology/EKG Results - Lab Results Results: Laboratory Tests 08/25/16 08/25/16 08/25/16 01:46 01:46 01:46 WBC 20.9 H* D RBC 2.75 L Hgb 7.5 L* Hct 22.2 L* D MCV 80.8 MCH 27.1 MCHC Differential 33.6 RDW 16.0 Plt Count 308 MPV 7.6 Band Neutrophils % 5 Neutrophils (Manual) 80 Lymphocytes 6 L Monocytes 5 Eosinophils 4 Hypochromia 1+ Platelet Estimate ADEQUATE Polychromasia 1+ PT 10.5 INR 1.01 PTT (Actin FS) 28.8 Sodium Potassium Chloride Carbon Dioxide Anion Gap BUN Creatinine Est GFR ( Amer) Est GFR (Non-Af Amer) BUN/Creatinine Ratio Glucose Calcium Total Bilirubin AST ALT Alkaline Phosphatase Troponin I Total Protein Albumin Globulin Albumin/Globulin Ratio Triglycerides 69 Cholesterol 100 LDL Cholesterol Direct 66 L HDL Cholesterol 34 08/25/16 08/25/16 01:46 01:46 WBC RBC Hgb Hct MCV MCH MCHC Differential RDW Plt Count MPV Band Neutrophils % Neutrophils (Manual) Lymphocytes Monocytes Eosinophils Hypochromia Platelet Estimate Polychromasia PT INR PTT (Actin FS) Sodium 132 L Potassium 4.7 Chloride 100 Carbon Dioxide 30.1 Anion Gap 6.6 L BUN 26 H Creatinine 0.6 L Est GFR ( Amer) TNP Est GFR (Non-Af Amer) TNP BUN/Creatinine Ratio 43.3 Glucose 163 H Calcium 9.7 Total Bilirubin 0.5 AST 12 L ALT 7 Alkaline Phosphatase 176 H Troponin I 0.01 Total Protein 7.3 Albumin 2.9 L Globulin 4.4 Albumin/Globulin Ratio 0.7 L Triglycerides Cholesterol LDL Cholesterol Direct HDL Cholesterol ED Septic Shock - . Is Septic Shock (SBP<90, OR Lactate>4 mmol\L) present?: No - <6hrs of presentation: Vital Signs: Vital Signs - 8 hr 08/25/16 08/25/16 01:30 02:30 Temp 98.7 F HR 85 76 RR 20 BP 157/65 O2 Sat % 97 100
[2016-08-25] MEDS ORDERED: Albuterol/Ipratropium Neb 3 ML AERS HHN PRN (07:34)
[2016-08-25] MEDS ORDERED: Fleet Enema 135 mL RC PRN (07:34)
--- NOTE | 2016-08-25 08:52 | Diagnostic Imaging Report ---
Portable chest x-ray HISTORY: Shortness of breath The overall heart size is difficult to assess with portable technique, but appears somewhat increased. There are diffuse bilateral pulmonary infiltrates. Pulmonary vascular redistribution is seen consistent with a degree of cardiac decompensation. Small bilateral pleural effusions. Tracheostomy noted. IMPRESSION: 1. Cardiomegaly with small bilateral pleural effusions and bilateral infiltrates most likely associated with pulmonary edema and congestive heart failure. Underlying pneumonia cannot be excluded. Clinical correlation is needed.
[2016-08-25] MEDS ORDERED: Multivitamin 5 mL UDC GT SCH (09:00)
[2016-08-25] MEDS ORDERED: Non-Formulary Item 1 EA (Docusate Sodium 100 MG) GT SCH (09:00)
[2016-08-25] MEDS ORDERED: Non-Formulary Item 1 EA (Vit C/Ascorbate Ca/Ascorb Sod [Vitamin C 500 Mg/15 Ml Liquid] 500 GT SCH (09:00)
[2016-08-25] MEDS ORDERED: Non-Formulary Item 1 EA (Zinc Sulfate [Zinc Sulfate] 1 TAB) GT SCH (09:00)
[2016-08-25] MEDS: Ferrous Sulfate 325 MG TAB PO SCH (09:04)
[2016-08-25] MEDS: Chlorhexidine Gluconate 0.12% 15mL Mouthwash MM SCH ×2 (10:50→20:00)
--- NOTE | 2016-08-25 10:59 | Admit Criteria Form ---
Admit Criteria Forms - Admit Criteria Diagnosis: HEMATOLOGY GRG Clinical Indications for Admission to Inpatient Care (Place 'X' for any and all applicable criteria): Hospital admission is needed for appropriate care of the patient because of ANY ONE of the following: [X ]I. Severe anemia indicated by ANY ONE of the following (1)(2) [ ]a) Altered mental status [ ]b) Syncope [X]c) Other findings suggesting inadequate perfusion [ ]d) Chest pain [ ]e) Exertional dyspnea [ ]f) Treatment with transfusion or volume replacement is ineffective at resolving ANY ONE of the following [A]: [ ]i) Tachycardia for age [ ]ii) Orthostatic vital sign changes as indicated by ANY ONE of the following (3) [ ]1) Fall in SBP of 20 mm Hg or more 1 to 3 minutes after patient sits or stands from recumbent position [ ]2) Fall in DBP of 10 mm Hg or more 1 to 3 minutes after patient sits or stands from recumbent position [ ]II. High-risk febrile neutropenia [B] as indicated by ANY ONE of the following(4)(5) [ ]a) Hemodynamic instability [ ]b) Hypoxemia [ ]c) Tachypnea [ ]d) Altered mental status [ ]e) New onset abdominal pain [ ]f) New onset vomiting or diarrhea [ ]g) Pneumonia [ ]h) Profound neutropenia [C] anticipated to extend for more than 7 days [ ]i) Oral or gastrointestinal mucositis that interferes with swallowing or causes severe diarrhea [ ]j) Evidence of significant focal infection (eg, cellulitis, central line or catheter infection, perirectal abscess) [ ]k) Leukemia or lymphoma induction therapy [ ]l) Bone marrow transplant patient [ ]m) Renal insufficiency (eg, GFR of less than 30 mL/min/1.73m2 (0.5 mL/sec/1.73m2) [ ]n) Severe liver dysfunction (transaminase levels greater than 5 times normal) [ ]o) Platelet count less than 50,000/mm3 (50 x109/L)(6) [ ]p) [employer] Association for Supportive Care in Cancer (MASCC) Risk Index score of < 21 [D] [ ]III. High-risk low platelet count as indicated by ANY ONE of the following(8) (9) [ ]a) Severe or life-threatening bleeding (eg, intracranial, major gastrointestinal, or extensive mucosal bleeding), with any reduced platelet count [ ]b) Platelet count less than 20,000/mm3 (20 x109/L) with any active bleeding [ ]c) Platelet count less than 10,000/mm3 (10 x109/L) with minor purpura or petechiae [ ]d) Platelet count less than 5000/mm3 (5 x109/L) [ ]e) Low platelet count with hemolytic anemia [ ]IV.Active hemolysis with high-risk findings, including ANY ONE of the following(2)(10)(11) [ ]a) Hematocrit less than 25% (0.25) [ ]b) Rapidly progressing anemia [ ]c) Thrombocytopenia(12)(13) [ ]d) Evidence of thrombosis or new renal insufficiency [ ]V. Bleeding disorder with high-risk features (eg, hemophilia, coagulopathy) as indicated by ANY ONE of the following (2)(14)(15) [ ]a) Central nervous system bleeding [ ]b) Retroperitoneal bleeding [ ]c) Retropharyngeal bleeding [ ]d) Gastrointestinal bleeding (22) [ ]e) Purpura [ ]f) Disseminated intravascular coagulation(23) [ ]g) Major trauma [ ]h) Deep laceration [ ]i) Head trauma [ ]j) Any trauma with internal hematoma (eg, retroperitoneal, ocular) [ ]k) Failed outpatient management [ ]. Severe over-anticoagulation or high-risk situation as indicated by ANY ONE of the following(24)(25) [ ]a) Active bleeding [ ]b) International normalized ratio 5 or greater and rapid reversal needed [ ]c) International normalized ratio 9 or greater [ ]VII. Congenital immunodeficiency states with severe morbidity as indicated by ANY ONE of the following(26)(27) [ ]a) Severe infection [ ]b) Bone marrow transplant needed (Also use Medical Oncology GRG) [ ]VIII. Hyperviscosity syndrome with high-risk indicators indicated by ANY ONE of the following (2)(28)(29)(30)(31) [ ]a) Polycythemia vera with hematocrit greater than 60% (0.60) [ ]b) Elevated platelet count associated with thrombosis, bleeding, or life-threatening organ dysfunction [ ]c) Severe signs or symptoms from elevated red cell, white cell, or protein levels, including ANY ONE of the following: [ ]i) Mental status change [ ]ii) Dyspnea [ ]iii) Chest x-ray infiltrate [ ]iv) Visual changes [ ]v) Retinal abnormalities [ ]vi) Neuromuscular symptoms [ ]vii) Suspected ischemia or thrombosis [ ]viii) Bleeding [ ]IX. Methemoglobinemia greater than 15% (0.15) or severe symptoms persist after emergency treatment (32)(33) [ ]X. Spleen trauma with blood loss or other need for acute (medical) treatment (34) [ ]XI. Hematology condition and ALL of the following: [ ]a) Symptom or finding for which emergency and observation care have failed or are not considered appropriate (Also use General Criteria: Observation Care as appropriate) [ ]b) Presence of ANY ONE of the following: [ ]i) A General Admission Criteria [ ]ii) A Pediatric General Admission Criteria The original [facility] content created by [facility] has been revised. The portions of the content which have been revised are identified through the use of italic text or in bold, and [facility] has neither reviewed nor approved the modified material. All other unmodified content is copyright [facility]. Please see references footnoted in the original [facility] edition 2016 Admit Criteria Met?: Yes
[2016-08-25] MEDS ORDERED: VTE Chemical Prophylaxis Screen/Admission MC PRN (11:00)
[2016-08-25] MEDS ORDERED: Albuterol/Ipratropium Neb 3 ML AERS HHN SCH (12:00)
[2016-08-25] MEDS: Diltiazem 30 mg Tab GT SCH ×2 (12:48→17:46)
[2016-08-25] MEDS: INSULIN HUMAN REGULAR 100 UNITS/ML UNIT SUBQ SCH ×2 (12:58→18:40)
[2016-08-25] MEDS: Albuterol/Ipratropium Neb 3 ML AERS HHN SCH ×2 (13:14→19:00)
--- NOTE | 2016-08-25 15:54 | Consultation ---
Consult Note - Consult Note Service Date: 08/25/16 Consult Note: dictated [id number]
[2016-08-25] MEDS ORDERED: Azithromycin 500 MG in Sodium Chloride 0.9% 250 ML IV SCH (16:00)
[2016-08-25] MEDS: Azithromycin 500 MG in Sodium Chloride 0.9% 250 ML IV SCH (20:27)
--- NOTE | 2016-08-25 21:37 | General Progress Note ---
Subjective - Review of Systems Service Date: 08/25/16 Objective - Results Result Diagrams: 08/25/16 01:46 08/25/16 01:46 Recent Labs: Laboratory Last Values WBC 20.9 Th/cmm (4.8-10.8) H* D 08/25/16 01:46 RBC 2.75 Mil/cmm (3.80-5.80) L 08/25/16 01:46 Hgb 7.5 gm/dL (12.6-17.4) L* 08/25/16 01:46 Hct 22.2 % (39.0-49.0) L* D 08/25/16 01:46 MCV 80.8 fl (80-99) 08/25/16 01:46 MCH 27.1 pg (27.0-31.0) 08/25/16 01:46 MCHC Differential 33.6 pg (28.0-36.0) 08/25/16 01:46 RDW 16.0 % (11.5-20.0) 08/25/16 01:46 Plt Count 308 Th/cmm (150-400) 08/25/16 01:46 MPV 7.6 fl 08/25/16 01:46 Band Neutrophils % 5 % (0-10) 08/25/16 01:46 Neutrophils (Manual) 80 % (40-80) 08/25/16 01:46 Lymphocytes 6 % (20-50) L 08/25/16 01:46 Monocytes 5 % (2-10) 08/25/16 01:46 Eosinophils 4 % (0-5) 08/25/16 01:46 Hypochromia 1+ 08/25/16 01:46 Platelet Estimate ADEQUATE (NORMAL) 08/25/16 01:46 Polychromasia 1+ 08/25/16 01:46 PT 10.5 SECONDS (9.5-11.5) 08/25/16 01:46 INR 1.01 (0.5-1.4) 08/25/16 01:46 PTT (Actin FS) 28.8 SECONDS (26.0-38.0) 08/25/16 01:46 Sodium 132 mEq/L (136-145) L 08/25/16 01:46 Potassium 4.7 mEq/L (3.5-5.1) 08/25/16 01:46 Chloride 100 mEq/L (98-107) 08/25/16 01:46 Carbon Dioxide 30.1 mEq/L (21.0-31.0) 08/25/16 01:46 Anion Gap 6.6 (7.0-16.0) L 08/25/16 01:46 BUN 26 mg/dL (7-25) H 08/25/16 01:46 Creatinine 0.6 mg/dL (0.7-1.3) L 08/25/16 01:46 Est GFR ( Amer) TNP 08/25/16 01:46 Est GFR (Non-Af Amer) TNP 08/25/16 01:46 BUN/Creatinine Ratio 43.3 08/25/16 01:46 Glucose 163 mg/dL (70-105) H 08/25/16 01:46 POC Glucose 187 MG/DL (70 - 105) H 08/25/16 18:37 Whole Bld Lactic Acid 0.92 mmol/L (0.60-1.99) 08/25/16 01:46 Calcium 9.7 mg/dL (8.6-10.3) 08/25/16 01:46 Total Bilirubin 0.5 mg/dL (0.3-1.0) 08/25/16 01:46 AST 12 U/L (13-39) L 08/25/16 01:46 ALT 7 U/L (7-52) 08/25/16 01:46 Alkaline Phosphatase 176 U/L (34-104) H 08/25/16 01:46 Troponin I 0.01 ng/mL (0.01-0.05) 08/25/16 01:46 Total Protein 7.3 gm/dL (6.0-8.3) 08/25/16 01:46 Albumin 2.9 gm/dL (4.2-5.5) L 08/25/16 01:46 Globulin 4.4 gm/dL 08/25/16 01:46 Albumin/Globulin Ratio 0.7 (1.0-1.8) L 08/25/16 01:46 Triglycerides 69 mg/dL (<150) 08/25/16 01:46 Cholesterol 100 mg/dL (<200) 08/25/16 01:46 LDL Cholesterol Direct 66 mg/dL (75-193) L 08/25/16 01:46 HDL Cholesterol 34 mg/dL (23-92) 08/25/16 01:46 TSH 1.97 uIU/ml (0.34-5.60) 08/25/16 01:46 RPR NONREACTIVE (NONREACTIVE) 08/25/16 01:46 Blood Type O POSITIVE 08/25/16 01:46 Antibody Screen NEGATIVE 08/25/16 01:46 Crossmatch See Detail 08/25/16 01:46 - Physical Exam Vitals and I&O: Vital Signs Temp 98 F 08/25/16 20:00 Pulse 88 08/25/16 21:05 Resp 18 08/25/16 21:00 BP 150/55 08/25/16 21:00 Pulse Ox 99 08/25/16 21:05 Intake & Output 08/25/16 08/25/16 08/26/16 06:59 18:59 06:59 Intake Total 1100 Output Total 1201 Balance -101 Weight (lbs) 72.575 kg Intake: Tube Feeding 400 Blood Product 500 Other 200 Output: Urine 1200 Stool 1 Active Medications: Current Medications Acetaminophen (Tylenol) 650 mg GT Q4HR PRN PRN Reason: Pain or Fever >101 Stop: 10/24/16 07:33 Albuterol/Ipratropium (Duoneb Neb) 3 ml HHN Q3HR PRN PRN Reason: Shortness of Breath or Wheeze Stop: 10/24/16 07:33 Albuterol/Ipratropium (Duoneb Neb) 3 ml HHN Q6HRT PENDING SALE TO [facility] Stop: 10/24/16 11:59 Last Admin: 08/25/16 19:00 Dose: 3 ml Amlodipine Besylate (Norvasc) 10 mg GT DAILY PENDING SALE TO [facility] Stop: 10/24/16 08:59 Last Admin: 08/25/16 09:03 Dose: 10 mg Ascorbic Acid (Vitamin C) 500 mg PO DAILY PENDING SALE TO [facility] Stop: 10/24/16 08:59 Last Admin: 08/25/16 09:03 Dose: 500 mg Bisacodyl (Dulcolax 10 Mg Supp) 10 mg RC DAILY PRN PRN Reason: Constipation Stop: 10/24/16 07:33 Chlorhexidine Gluconate (Peridex) 15 ml MM 0800,2000 PENDING SALE TO [facility] Stop: 10/24/16 07:59 Last Admin: 08/25/16 10:50 Dose: 15 ml Clonidine HCl (Catapres) 0.1 mg GT Q4H PRN PRN Reason: hypertension Stop: 10/24/16 07:33 Diltiazem HCl (Cardizem) 60 mg GT Q6HR PENDING SALE TO [facility] Stop: 10/24/16 11:59 Last Admin: 08/25/16 17:46 Dose: 60 mg Docusate Sodium (Colace) 100 mg PO DAILY TIERNEY Stop: 10/24/16 08:59 Last Admin: 08/25/16 09:04 Dose: 100 mg Famotidine (Pepcid) 20 mg GT BID TIERNEY Stop: 10/24/16 08:59 Last Admin: 08/25/16 17:44 Dose: 20 mg Ferrous Sulfate (Iron) 325 mg PO DAILY [facility]ENDING SALE TO [facility] Stop: 10/24/16 08:59 Last Admin: 08/25/16 09:04 Dose: 325 mg Finasteride (Proscar) 5 mg GT DAILY TIERNEY PRN Reason: Protocol Stop: 10/24/16 08:59 Last Admin: 08/25/16 10:49 Dose: 5 mg Heparin Sodium (Porcine) (Heparin) 5,000 units SUBQ Q12HR PENDING SALE TO [facility] Stop: 10/24/16 20:59 Hydralazine HCl (Apresoline) 50 mg GT TID PENDING SALE TO [facility] Stop: 10/24/16 08:59 Last Admin: 08/25/16 17:46 Dose: 50 mg Ceftriaxone Sodium 1 gm/ (Sodium Chloride) 50 mls @ 100 mls/hr IV Q24HR TIERNEY Stop: 10/25/16 08:59 Azithromycin 500 mg/ Sodium (Chloride) 250 mls @ 250 mls/hr IV 2000 TIERNEY Stop: 10/24/16 15:59 Last Admin: 08/25/16 20:27 Dose: 250 mls/hr Insulin Human Regular (Novolin R) 0 units SUBQ Q6HR TIERNEY PRN Reason: Protocol Stop: 10/24/16 07:33 Levetiracetam (Keppra) 500 mg PO Q12H PENDING SALE TO [facility] Stop: 10/24/16 07:33 Last Admin: 08/25/16 20:27 Dose: 500 mg Losartan Potassium (Cozaar) 50 mg GT BID TIERNEY Stop: 10/24/16 08:59 Last Admin: 08/25/16 17:45 Dose: 50 mg Miscellaneous (Carbidopa/Levodopa [Carbidopa-Levo 25-100 Mg Odt]) 1 each GT BID PENDING SALE TO [facility] Stop: 10/24/16 08:59 Miscellaneous (Vte Chemical Prophylaxis Screen/ Admission) 1 ea MC PRN PRN PRN Reason: PROTOCOL Stop: 10/24/16 10:59 Multivitamins/Vitamin C (Theragran) 1 tab GT DAILY TIERNEY Stop: 10/24/16 10:59 Senna (Senna) 8.6 mg GT HS TIERNEY Stop: 10/24/16 20:59 Sodium Chloride (Nacl Tab) 1 gm GT BID TIERNEY Stop: 10/24/16 08:59 Last Admin: 08/25/16 17:44 Dose: 1 gm Sodium Phosphate (Fleet Enema) 135 ml RC Q48HR PRN PRN Reason: Constipation Stop: 10/24/16 07:33 Zinc Sulfate (Zinc Sulfate) 220 mg PO DAILY TIERNEY Stop: 10/24/16 08:59 Last Admin: 08/25/16 09:45 Dose: 220 mg General: Other (s/p trach s/p g tube) Neck: Supple Cardiovascular: Regular rate Lungs: Clear to auscultation, Other (delon rhochii) Abdomen: Bowel sounds, Soft (sacral decubiti) - Procedures Procedures: Procedures Procedure Code Date RESPIRATORY VENTILATION, 24-96 CONSECUTIVE HOURS [id number] 07/05/16 TRANSFUSE NONAUT RED BLOOD CELLS IN PERIPH VEIN, PERC [id number] 07/05/16 VENT MGMT INPAT INIT DAY 07/05/16 VENT MGMT INPAT SUBQ DAY 07/05/16 Assessment/Plan - Problem List Patient Problems: All Active Problems Anemia (Acute) D64.9 H/O: CVA (cerebrovascular accident) (Acute) Z86.73 Respiratory failure after trauma (Acute) J95.821 Sacral decubitus ulcer, stage IV (Acute) L89.154 Status post gastrostomy tube placement, follow-up exam (Acute) Z09 Status post tracheostomy (Acute) Z93.0 UTI (urinary tract infection) (Acute) Ventilator dependent (Acute) Z99.11 ulcer beneath penis (Acute) - Plan Plan: blood transfusion iv antibiotics wound care id consult gi consult pul consult Nutritional Asmnt/Malnutr-PDOC - Dietary Evaluation Malnutrition Findings (Please click <Entered> for more info): Nutritional Asmnt/Malnutrition Start: 08/25/16 11: 48 Text: Status: Complete Freq: Document 08/25/16 11:48 [email or web address] (Rec: 08/25/16 12:18 [email or web address]) Nutritional Asmnt/Malnutrition Patient General Information Nutritional Screening High Risk Screening Diagnosis ER: severe anemia, leucocytosis Pertinent Medical Hx/Surgical Hx ER: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 Pt with eyes open, non -verbal, trach vent stable during visit. RD observed blood transfusing and Diabetisource infusing at 65ml /hr. Pt appeared slightly swollen possibly fluid, otherwise approriate for age. CBW via bedscale 155lb. Current Diet Order/ Nutrition Support No diet order entered at this time. Pertinent Medications Vitamin C, dulcolax, Colace, Pepcid, Iron, Novolin, Theragran, Senna, Fleet Enema, Zinc Sulfate Pertinent Labs 08/25: glucose 163H, alkaline phosphatase 176H Nutritional Hx/Data Height 1.73 m Height (Calculated Centimeters) 172.7 Current Weight (lbs) 70.307 kg Weight (Calculated Kilograms) 70.3 Weight (Calculated Grams) 41776.8 Anderson Body Weight 154lb Weight Status Approriate GI Symptoms Food Allergies No Cultural/Ethnic/Taoism Belief Transfer note in chart: Glucerna 1.2 at 65ml/hr x 20hrs, on at 12pm and off at 8am, 75ml water flush q3hrs. This provides 1300ml total volume, 1560kcal, 78g protein, 1063ml free water + 600ml flush. Skin Integrity/Comment: forge hand: coccyx decubitus ulceration Estimated Nutritional Goals BEE in Kcals: Using Current wt Calories/Kcals/Kg CBW 155lb/70.5kg Kcals Calculated 1763-2115kcal (25-30kcal/kg) Protein: Using Current wt Protein Calculated 85-99g (1.2-1.4g/kg) Fluid: ml 1763-2115ml (1ml/kcal) Nutritional Problem 1. Problem Problem Swallow difficulty related to Etiology dysphagia aeb Signs/Symptoms: PEG dependent Intervention/Recommendation Comments 1. Recommend Diabetisource at 75ml/hr x 20hrs, on at 12pm off at 8am, This provides 1500ml total volume, 1800kcal, 90g protein, 1227ml free water. Water flush 120ml water flush q6hrs. Expected Outcomes/Goals Expected Outcomes/Goals 1. Pt to meet 100% of estimated nutritional needs on tube feeding with tolerance.
[2016-08-25] MEDS: Sodium Chloride 0.45% 1,000 ML IV SCH (22:00)
--- NOTE | 2016-08-25 23:55 | History & Physical ---
HISTORY OF PRESENT ILLNESS: The patient came to the Emergency Room. He came from [facility]. Apparently, the patient was short of breath and found to be severely anemic and sent over here. The patient has a history of multiple medical problems, and the patient had no fever, no chills, no rigors, and no other problems. SYSTEMS REVIEW: Otherwise negative, and the patient's hemoglobin was 7.5. LABORATORY DATA: Chest x-ray showed no evidence of infection, no evidence of infiltrate. PAST MEDICAL HISTORY: The patient known to have a history of status post tracheostomy, G-tube, VDRF, anemia, hypertension, CHF, BPH, diabetes, seizures, history of CVA in the past. PHYSICAL EXAMINATION: HEENT: The patient, right now, is on ventilator, tracheostomy noted. LUNGS: Bilateral rhonchi. CARDIOVASCULAR: S1, S2 heard. ABDOMEN: Soft. Bowel sounds are heard. CENTRAL NERVOUS SYSTEM: Decreased sensorium. The patient was given 2 units of blood. The patient has main diagnosis of anemia. PLAN: We will have GI doctor see the patient and also we will have infectious disease doctor see the patient. I will follow the patient. JOB# [id number]
[2016-08-26] MEDS: INSULIN HUMAN REGULAR 100 UNITS/ML UNIT SUBQ SCH ×4 (00:03→19:05)
[2016-08-26] MEDS: Diltiazem 30 mg Tab GT SCH ×4 (00:05→18:08)
--- NOTE | 2016-08-26 02:45 | Consultation ---
REFERRING PHYSICIAN: Dr. Gurpreet Burgess. REASON FOR CONSULTATION: Leukocytosis and pneumonia. HISTORY OF PRESENT ILLNESS: The patient is a 76-year-old male with a past medical history of dementia, stroke, on the ventilator dependence , pneumonia and septic shock, hypertension, diabetes mellitus, CVA, dementia, hydrocephalus, seizure disorder, cholesterol, hypercholesterolemia, hypothyroidism, BPH, peptic ulcer disease and GERD, brought in from nursing facility for low hemoglobin of 7.5. The patient is unable to give any history. He is ventilator dependent. On initial evaluation, the patient's temperature was 98.7 degrees Fahrenheit and WBC count was 20,900. Chest x-ray showed bilateral infiltrate and congestion. ID consult was called for further antibiotic management. Meanwhile, the patient had received ceftriaxone. PAST MEDICAL HISTORY: Includes hypertension, diabetes mellitus type 2, coronary artery disease, history of CVA, dementia, hydrocephalus, seizure disorder, hypercholesterolemia, hypothyroidism, BPH, peptic ulcer disease, vent dependent, status post tracheostomy. He is status post PEG. ALLERGIES: NKDA. MEDICATIONS: As per medication reconciliation sheet. Antibiotic medrano, the patient has received Rocephin in the ER. PAST SURGICAL HISTORY: Includes J-tube placement, tracheostomy, craniotomy, complicated by intracranial abscess. FAMILY HISTORY: Noncontributory. SOCIAL HISTORY: The patient lives at nursing facility. No history of smoking, alcohol or drug use. REVIEW OF SYSTEMS: The patient is unable to give any history because of his mental status, able to open his eyes only. PHYSICAL EXAMINATION: CURRENT VITAL SIGNS: Shows temperature is 98.6, pulse 90, respirations 20, blood pressure 138/80 and oxygen saturation 97%. GENERAL: The patient is comfortable lying in the bed, not in acute distress. HEENT: Head is normocephalic and atraumatic. Oral cavity is moist, pink tongue. Eyes: Pallor is present, no icterus. Pupils PERRLA. NECK: Trach site is clear. CHEST: Bilateral breath sounds. No crackles or wheezing. HEART: S1, S2 within normal limits. Regular rhythm. No murmur and no gallop. ABDOMEN: Soft. CHEST: Bilateral bronchovesicular breath sounds. Crackles present. HEART: S1 and S2 within normal limit. Regular rhythm. No murmur and no gallop. ABDOMEN: Soft, nontender and nondistended. Bowel sounds present. PEG site is clear. EXTREMITIES: No cyanosis, no clubbing, mild edema present. NEUROLOGIC: Opens his eyes. LABORATORY DATA: Lab medrano current lab shows WBC count is 20,900, hemoglobin 7.5, hematocrit 22.2, platelets are 308,000 and neutrophils 80%. Sodium is 132, potassium 4.7, chloride 100, bicarbonate is 30, BUN is 26, creatinine 0.6 and glucose is 163. RPR is nonreactive. CHEST X-RAY: Shows bilateral infiltrate with congestion. IMPRESSION: 1. Leukocytosis, most likely reactive to anemia, cannot rule out sepsis at this time as the patient has history of sepsis recently. 2. Pneumonia. 3. Congestive heart failure. 4. Vent-dependent respiratory failure. 5. Chronic renal insufficiency, stage 2. 6. History of hypertension. 7. History of diabetes mellitus. 8. History of cerebrovascular accident and history of craniotomy for intracranial abscess. RECOMMENDATIONS: We will do the sepsis workup and resume Rocephin and Zithromax. Repeat chest x-ray in the morning. Thank you, Dr. Burgess for involving me in taking care of this patient. JOB# [id number] AZAEL
[2016-08-26 05:14] LABS: % EOSINOPHILS 2.5 % (0.0-5.0); % LYMPHOCYTES 8.4 % (20.0-50.0); RED BLOOD COUNT 3.79 Mil/cmm (3.80-5.80)
[2016-08-26 05:28] LABS: % BASOPHILS 0.3 % (0.0-2.0); % MONOCYTES 7.3 % (2.0-10.0); % NEUTROPHILS 81.5 % (40.0-80.0); MEAN CELL VOLUME 81.6 fl (80-99); MEAN PLATELET VOLUME 8.1 fl; NEUTROPHILE ABSOLUTE 14.3 Th/cmm (1.8-8.0); PLATELET COUNT 290 Th/cmm (150-400); RED CELL DISTRIBUTION WIDTH 15.9 % (11.5-20.0)
[2016-08-26 05:32] LABS: WHITE BLOOD COUNT 17.6 Th/cmm (4.8-10.8)
[2016-08-26 07:03] LABS: HEMOGLOBIN 10.2 gm/dL (12.6-17.4)
[2016-08-26 07:04] LABS: HEMATOCRIT 30.9 % (39.0-49.0)
[2016-08-26] MEDS: Albuterol/Ipratropium Neb 3 ML AERS HHN SCH ×3 (07:44→19:24)
[2016-08-26] MEDS: Multivitamin Tab GT SCH (09:43)
[2016-08-26] MEDS: Ferrous Sulfate 325 MG TAB PO SCH (09:43)
[2016-08-26] MEDS: Chlorhexidine Gluconate 0.12% 15mL Mouthwash MM SCH ×2 (09:45→20:32)
[2016-08-26] MEDS: cefTRIAXone 1 GM in Sodium Chloride 0.9% 50 ML IV SCH (09:47)
[2016-08-26] MEDS ORDERED: Probiotic Screen MC PRN (11:23)
[2016-08-26 11:51] LABS: URINE COLOR YELLOW
[2016-08-26 11:52] LABS: URINE BILIRUBIN NEGATIVE (NEGATIVE); URINE BLOOD MODERATE (NEGATIVE); URINE GLUCOSE (UA) NEGATIVE (NEGATIVE); URINE KETONE NEGATIVE (NEGATIVE); URINE PH 8.5; URINE PROTEIN 30 mg/dL (NEGATIVE); URINE UROBILINOGEN 0.2 E.U./dL (0.2 - 1.0)
[2016-08-26 11:57] LABS: URINE BACTERIA MODERATE /hpf (NONE SEEN); URINE EPITHELIAL CELLS OCCASIONAL /lpf (FEW)
[2016-08-26] MEDS: Azithromycin 500 MG in Sodium Chloride 0.9% 250 ML IV SCH (20:30)
[2016-08-27] MEDS: Diltiazem 30 mg Tab GT SCH ×4 (00:04→17:57)
[2016-08-27] MEDS: INSULIN HUMAN REGULAR 100 UNITS/ML UNIT SUBQ SCH ×4 (00:08→19:10)
[2016-08-27] MEDS: Albuterol/Ipratropium Neb 3 ML AERS HHN SCH ×4 (02:06→19:30)
--- NOTE | 2016-08-27 02:46 | Consultation ---
INPATIENT GASTROINTESTINAL CONSULTATION REFERRING PHYSICIAN: Dr. Burgess. REASON FOR CONSULTATION: Anemia. HISTORY: This is a 76-year-old male who came from an outside facility because of shortness of breath and was found to be anemic. The patient had no obvious GI bleeding, and he is a poor historian. PAST MEDICAL HISTORY: Respiratory failure, dysphagia, anemia, hypertension, CHF, BPH, diabetes, seizure disorder, and stroke. PAST SURGICAL HISTORY: Trach and PEG. FAMILY HISTORY: Noncontributory. SOCIAL HISTORY: Resident of [facility] facility. ALLERGIES: None. CURRENT MEDICATIONS: Tylenol, Norvasc, vitamin C, azithromycin, Dulcolax, ceftriaxone, Peridex, Catapres, Cardizem, Colace, Pepcid, iron, Proscar, heparin, Apresoline, insulin, Keppra, Cozaar, and senna. REVIEW OF SYSTEMS: Unobtainable. PHYSICAL EXAMINATION: VITAL SIGNS: Temperature 98.8, breathing 14, pulse of 74, blood pressure 125/51, and satting 100%. GENERAL: In no apparent distress. HEENT: Anicteric. NECK: A mass-like fullness on the left side, trach. CHEST: Some coarse breath sounds. CARDIOVASCULAR: Regular rate and rhythm. ABDOMEN: Soft, nontender, and nondistended with a G-tube. SKIN: Warm, dry. EXTREMITIES: Reveal no cyanosis. LABORATORY DATA: Show white count of 17.6, hemoglobin 10.2, platelets of 290,000. INR is 1.01, stool OB negative. BUN is 26. Creatinine is 0.6. IMPRESSION: This is a 76-year-old male with a normocytic anemia. BUN to creatinine ratio is somewhat elevated suggesting the possibility of an upper source. No obvious gastrointestinal bleeding was seen. Stool OB was negative. PLAN: 1. Consider EGD. 2. Follow H and H and transfuse as needed. 3. Continue Pepcid for now, may need proton pump inhibitor depending on results of the endoscopy. Thank you for allowing me to participate. Please call me if any questions. JOB# [id number]
--- NOTE | 2016-08-27 04:06 | Consultation ---
PULMONARY CONSULTATION The patient of Dr. Burgess. Thank you Dr. Burgess for this consultation. HISTORY OF PRESENT ILLNESS: The patient is a 76-year-old male with history of CVA, status post craniotomy, respiratory failure resulting from the above. The patient is debilitated, bedridden, on the tracheostomy, on the ventilator, on G-tube feeding, presented with altered level of consciousness and lethargy according to , was found to have anemia with hemoglobin of 7.5, transferred here and admitted, had a blood transfusion already. According to the , the patient is now able to look around and able to look at the TV. PAST MEDICAL HISTORY: As above. SOCIAL HISTORY: No history of smoking. A few cigarettes a day many years ago. REVIEW OF SYSTEMS: Unable to obtain because of the patient's condition. PHYSICAL EXAMINATION: GENERAL: The patient is on a ventilator, not in acute distress, T-max 99.0. VITAL SIGNS: Temperature 98.8, pulse is 85, respiration is 16, blood pressure 131/51, and saturation 100%. CHEST: Good breath sounds, a few rhonchi in bases. HEART: Regular rate. ABDOMEN: Soft. no tenderness. EXTREMITIES: No edema. LABORATORY DATA: WBC is 17.6, hemoglobin 10.2, platelets 290,000. Sodium 132, potassium is 4.7, and creatinine is 0.6. Chest x-ray shows bibasilar infiltrate and pulmonary congestion. IMPRESSION: This is a 76-year-old male with; 1. Chronic respiratory failure. 2. Early pneumonia. 3. Anemia. 4. Underlying cerebrovascular accident. PLAN: 1. IV antibiotics. 2. Sputum culture. 3. Ventilator support. 4. Pulmonary toilet. I will follow the patient with you. Thank you very much for this consultation. Case was discussed with the patient and at the bedside. JOB# [id number] AZAEL
[2016-08-27] MEDS: Sodium Chloride 0.45% 1,000 ML IV SCH (04:50)
[2016-08-27 05:33] LABS: % BASOPHILS 0.6 % (0.0-2.0); % EOSINOPHILS 3.9 % (0.0-5.0); % LYMPHOCYTES 13.9 % (20.0-50.0); % MONOCYTES 8.3 % (2.0-10.0); % NEUTROPHILS 73.3 % (40.0-80.0); HEMOGLOBIN 10.2 gm/dL (12.6-17.4); MEAN CELL VOLUME 82.7 fl (80-99); MEAN CORPUSCULAR HEMOGLOBIN 28.1 pg (27.0-31.0); MEAN PLATELET VOLUME 7.9 fl; NEUTROPHILE ABSOLUTE 9.8 Th/cmm (1.8-8.0); PLATELET COUNT 278 Th/cmm (150-400); RED BLOOD COUNT 3.63 Mil/cmm (3.80-5.80); RED CELL DISTRIBUTION WIDTH 16.4 % (11.5-20.0)
[2016-08-27 05:52] LABS: INR 0.99 (0.5-1.4); PROTHROMBIN TIME (TEST) 10.3 SECONDS (9.5-11.5)
--- NOTE | 2016-08-27 06:05 | Progress Notes ---
SUBJECTIVE: The patient was seen in his room lying in the bed. The patient appears to be calm at this time. No episodes of distress. No vasopressors at this time. OBJECTIVE: HEENT: Head: Atraumatic with swollen at the left side due to history of hydrocephalus. Eyes: Bilateral conjunctivae are clear. NECK: Supple. Positive tracheostomy. CARDIOVASCULAR: S1 and S2 heard without murmur. PULMONARY: Bilateral scattered rhonchi noted. GASTROINTESTINAL: Soft and nontender. Positive gastrostomy tube for feeding. MUSCULOSKELETAL: No clubbing noted. ASSESSMENT: 1. Ventilator dependent respiratory failure. 2. Pneumonia. 3. Hypertension. 4. Anemia. 5. Diabetes. 6. History of hydrocephalus. 7. History of cerebrovascular accident. PLAN: The patient will undergo ____ EGD in the morning. Telephone consent was obtained through the family and we will follow up with the ID doctor for management of IV antibiotics. We will follow up with the GI doctor to rule out any GI bleeding. For the meantime we will continue to monitor the patient here in ICU. JOB# [id number]
[2016-08-27 06:09] LABS: WHITE BLOOD COUNT 13.4 Th/cmm (4.8-10.8)
--- NOTE | 2016-08-27 06:32 | Consultation ---
The patient of Dr. Burgess. HISTORY AND PHYSICAL: This 76-year-old male patient with a known history of stroke, on ventilator with tracheostomy, hypertension, diabetes, CVA, dementia, hydrocephalus, seizure disorder, hyperlipidemia, hypothyroidism, BPH, peptic ulcer disease, GERD, came to the Emergency Room because of hemoglobin of 7.5. The patient is ventilator dependent. During the hospital stay, the patient developed paroxysmal atrial fibrillation, and hence, Cardiology consult was requested. The patient's hemoglobin has dropped after transfusion. PAST MEDICAL HISTORY: Hypertension, diabetes, coronary artery disease, CVA, dementia, hydrocephalus, seizure disorder, hyperlipidemia, hypothyroid, BPH, peptic ulcer disease, vent dependence, status post tracheostomy, PEG with protein calorie malnutrition. History of craniotomy for complicated by intracranial abscess. History of craniotomy for complicated intracranial abscess. ALLERGIES: None. PHYSICAL EXAMINATION: VITAL SIGNS: Blood pressure 130/80, pulse 110 irregular; respiration, on ventilator. HEAD: Normocephalic. No lumps or bumps. EYES: Pupils equal, reactive to light. Fundi show AV nicking, sclerae white, conjunctivae pink. NECK: Carotid 2+. Normal upstroke. JVD flat. Thyroid not palpable. Lymph nodes not palpable. CHEST: Shows increased AP diameter. No kyphosis, scoliosis. LUNGS: Bilateral wheezing, rhonchi, prolonged expiration. HEART: PMI fifth intercostal space with lateral to midclavicular line. S1 irregular, S2, S3, S4, systolic murmur grade 2/6. Lower left sternal border without radiation. ABDOMEN: Soft. The patient has a PEG in place. No organomegaly. RECTAL: Deferred. NEUROLOGIC: History of CVA, difficult to evaluate in view of anoxic encephalopathy. EXTREMITIES: Peripheral pulses feeble with 1+ pedal edema. CLINICAL IMPRESSION: Paroxysmal atrial fibrillation; acute on chronic respiratory failure, on ventilator; bilateral aspiration pneumonia; diabetes mellitus type 2; stable angina; cerebrovascular accident with late effect; dementia; hydrocephalus; seizure disorder; hyperlipidemia; hypothyroidism; benign prostatic hypertrophy; peptic ulcer disease; ventilator with tracheostomy; percutaneous endoscopic gastrostomy with protein calorie malnutrition, craniotomy for complicated intracranial abscess. PLAN: We will continue the patient on Cardizem, stop heparin in view of possible GI bleed. Continue IV antibiotics, vent management. JOB# [id number]
[2016-08-27] MEDS: cefTRIAXone 1 GM in Sodium Chloride 0.9% 50 ML IV SCH (08:57)
[2016-08-27] MEDS: Chlorhexidine Gluconate 0.12% 15mL Mouthwash MM SCH ×2 (08:57→21:00)
[2016-08-27] MEDS ORDERED: Venelex 60gm Tube TP SCH (09:00)
[2016-08-27] MEDS: Ferrous Sulfate 325 MG TAB PO SCH (10:50)
[2016-08-27] MEDS: Multivitamin Tab GT SCH (10:50)
[2016-08-27] MEDS: Lactobacillus Rhamnosus 10 Billion CFU Capsule PO SCH (10:51)
--- NOTE | 2016-08-27 15:10 | Cardiology ---
M-MODE ECHOCARDIOGRAM: Mitral valve, anterior leaflet of mitral valve shows normal excursion, EF velocity. Posterior leaflet of the mitral valve shows normal excursion. Left ventricular posterior wall shows increased thickness, normal excursion. Interventricular septum shows increased thickness, normal excursion, hypertrophy of the left ventricle, ejection fraction 65%. Left atrium normal. Aortic root shows normal dimension, normal excursion of aortic leaflets. CONCLUSION: Hypertrophy of the left ventricle, ejection fraction 65%. 2D ECHO: Long axis view showed normal sized left ventricle with hypertrophy of the left ventricle. Left atrium normal. Aortic root shows normal dimension, normal excursion of aortic leaflets. Short axis view of mitral valve normal. Short axis view of aortic valve normal. Apical four chamber view showed normal sized left ventricle with hypertrophy of the left ventricle. Left atrium normal. Right ventricular cavity, right atrium normal, no pericardial effusion. CONCLUSION: Hypertrophy of the left ventricle, ejection fraction 65%. Doppler study shows mild mitral regurgitation, tricuspid regurgitation, pulmonary regurgitation, mild pulmonary hypertension with right ventricular systolic pressure 42 mmHg. [facility]# [id number]
--- NOTE | 2016-08-27 15:19 | Operative Report ---
INPATIENT GASTROINTESTINAL PROCEDURE PROCEDURE: EGD with biopsy. REFERRING PHYSICIAN: Dr. Burgess. REASON FOR PROCEDURE: Anemia. CONSENT: Risks, benefits, alternatives, nature, indication, possible outcomes were discussed. Mentioned bleeding, infection, perforation, , disability, cardiopulmonary distress and arrest, missed lesion and cancers, need for surgery. The patient's son provided informed consent. PREOPERATIVE DIAGNOSIS: Anemia. POSTOPERATIVE DIAGNOSES: Gastritis with coffee secretions and G-tube bumper seen. MEDICATIONS: Provided by anesthesiologist. DESCRIPTION OF PROCEDURE: The patient was placed on left side. Upper gastroscope advanced from the mouth and second portion of duodenum, which appeared to be normal. Scope brought back in the stomach. Retroflexion view of fundus, cardia, lesser curvature. Scope was straightened. G-tube bumper was seen. We pushed it in to look beneath it. There is gastritis with coffee secretions. Biopsies were taken. No active bleeding. Scope was then removed. COMPLICATIONS: None. FINDINGS: 1. GE junction at 36 cm with a normal esophagus. 2. Gastritis with coffee secretions, status post biopsy.3 3. G-tube bumper seen and appeared to be normal. 4. Normal duodenum. RECOMMENDATIONS: 1. Provide the patient with Protonix. 2. Discontinue Pepcid. 3. Follow H and H. Thank you for allowing me to participate. Please call me if any questions. JOB# [id number]
--- NOTE | 2016-08-27 15:54 | Infectious Disease Prog Note ---
Infectious Disease Subjective - Review of Systems Service Date: 08/27/16 Subjective: No fever, on the ventilator, s/p tracheostomy. Infectious Disease Objective - Results Result Diagrams: 08/27/16 04:47 08/25/16 01:46 Recent Labs: Laboratory Last Values WBC 13.4 Th/cmm (4.8-10.8) H D 08/27/16 04:47 RBC 3.63 Mil/cmm (3.80-5.80) L 08/27/16 04:47 Hgb 10.2 gm/dL (12.6-17.4) L 08/27/16 04:47 Hct 30.0 % (39.0-49.0) L 08/27/16 04:47 MCV 82.7 fl (80-99) 08/27/16 04:47 MCH 28.1 pg (27.0-31.0) 08/27/16 04:47 MCHC Differential 34.0 pg (28.0-36.0) 08/27/16 04:47 RDW 16.4 % (11.5-20.0) 08/27/16 04:47 Plt Count 278 Th/cmm (150-400) 08/27/16 04:47 MPV 7.9 fl 08/27/16 04:47 Neutrophils % 73.3 % (40.0-80.0) 08/27/16 04:47 Band Neutrophils % 5 % (0-10) 08/25/16 01:46 Lymphocytes % 13.9 % (20.0-50.0) L 08/27/16 04:47 Monocytes % 8.3 % (2.0-10.0) 08/27/16 04:47 Eosinophils % 3.9 % (0.0-5.0) 08/27/16 04:47 Basophils % 0.6 % (0.0-2.0) 08/27/16 04:47 Neutrophils (Manual) 80 % (40-80) 08/25/16 01:46 Lymphocytes 6 % (20-50) L 08/25/16 01:46 Monocytes 5 % (2-10) 08/25/16 01:46 Eosinophils 4 % (0-5) 08/25/16 01:46 Hypochromia 1+ 08/25/16 01:46 Platelet Estimate ADEQUATE (NORMAL) 08/25/16 01:46 Polychromasia 1+ 08/25/16 01:46 PT 10.3 SECONDS (9.5-11.5) 08/27/16 04:47 INR 0.99 (0.5-1.4) 08/27/16 04:47 PTT (Actin FS) 28.8 SECONDS (26.0-38.0) 08/25/16 01:46 Sodium 132 mEq/L (136-145) L 08/25/16 01:46 Potassium 4.7 mEq/L (3.5-5.1) 08/25/16 01:46 Chloride 100 mEq/L (98-107) 08/25/16 01:46 Carbon Dioxide 30.1 mEq/L (21.0-31.0) 08/25/16 01:46 Anion Gap 6.6 (7.0-16.0) L 08/25/16 01:46 BUN 26 mg/dL (7-25) H 08/25/16 01:46 Creatinine 0.6 mg/dL (0.7-1.3) L 08/25/16 01:46 Est GFR ( Amer) TNP 08/25/16 01:46 Est GFR (Non-Af Amer) TNP 08/25/16 01:46 BUN/Creatinine Ratio 43.3 08/25/16 01:46 Glucose 163 mg/dL (70-105) H 08/25/16 01:46 POC Glucose 119 MG/DL (70 - 105) H 08/27/16 11:48 Whole Bld Lactic Acid 0.92 mmol/L (0.60-1.99) 08/25/16 01:46 Calcium 9.7 mg/dL (8.6-10.3) 08/25/16 01:46 Total Bilirubin 0.5 mg/dL (0.3-1.0) 08/25/16 01:46 AST 12 U/L (13-39) L 08/25/16 01:46 ALT 7 U/L (7-52) 08/25/16 01:46 Alkaline Phosphatase 176 U/L (34-104) H 08/25/16 01:46 Troponin I 0.01 ng/mL (0.01-0.05) 08/25/16 01:46 Total Protein 7.3 gm/dL (6.0-8.3) 08/25/16 01:46 Albumin 2.9 gm/dL (4.2-5.5) L 08/25/16 01:46 Globulin 4.4 gm/dL 08/25/16 01:46 Albumin/Globulin Ratio 0.7 (1.0-1.8) L 08/25/16 01:46 Triglycerides 69 mg/dL (<150) 08/25/16 01:46 Cholesterol 100 mg/dL (<200) 08/25/16 01:46 LDL Cholesterol Direct 66 mg/dL (75-193) L 08/25/16 01:46 HDL Cholesterol 34 mg/dL (23-92) 08/25/16 01:46 TSH 1.97 uIU/ml (0.34-5.60) 08/25/16 01:46 Urine Source [place] 08/26/16 11:10 Urine Color YELLOW 08/26/16 11:10 Urine Clarity CLEAR (CLEAR) 08/26/16 11:10 Urine pH 8.5 08/26/16 11:10 Ur Specific [place] 1.015 (1.005-1.030) 08/26/16 11:10 Urine Protein 30 mg/dL (NEGATIVE) H 08/26/16 11:10 Urine Glucose (UA) NEGATIVE mg/dL (NEGATIVE) 08/26/16 11:10 Urine Ketones NEGATIVE mg/dL (NEGATIVE) 08/26/16 11:10 Urine Blood MODERATE (NEGATIVE) H 08/26/16 11:10 Urine Nitrate NEGATIVE (NEGATIVE) 08/26/16 11:10 Urine Bilirubin NEGATIVE (NEGATIVE) 08/26/16 11:10 Urine Urobilinogen 0.2 E.U./dL (0.2 - 1.0) 08/26/16 11:10 Ur Leukocyte Esterase LARGE (NEGATIVE) H 08/26/16 11:10 Urine RBC 5-10 /hpf (0-5) H 08/26/16 11:10 Urine WBC 2-5 /hpf (0-5) H 08/26/16 11:10 Ur Epithelial Cells OCCASIONAL /lpf (FEW) 08/26/16 11:10 Urine Bacteria MODERATE /hpf (NONE SEEN) 08/26/16 11:10 Urine Yeast FEW /hpf (NONE SEEN) H 08/26/16 11:10 Stool Occult Blood NEGATIVE (NEGATIVE) 08/27/16 03:00 RPR NONREACTIVE (NONREACTIVE) 08/25/16 01:46 Blood Type O POSITIVE 08/25/16 01:46 Antibody Screen NEGATIVE 08/25/16 01:46 Crossmatch See Detail 08/25/16 01:46 - Physical Exam Vitals and I&O: Vital Signs Temp 98.0 F 08/27/16 12:00 Pulse 107 08/27/16 15:21 Resp 17 08/27/16 15:00 BP 141/61 08/27/16 15:21 Pulse Ox 99 08/27/16 15:00 Intake & Output 08/26/16 08/27/16 08/27/16 18:59 06:59 18:59 Intake Total 50 850 545 Output Total 850 600 Balance 50 0 -55 Intake: Intake, IV Amount 50 250 50 Azithromycin 500 mg In 250 Sodium Chloride 0.9% 250 ml @ 250 mls/hr IV 2000 [facility] Rx#:[id number] cefTRIAXone 1 gm In 50 50 Sodium Chloride 0.9% 50 ml @ 100 mls/hr IV Q24HR [facility] Rx#:[id number] Tube Feeding 600 375 Other 120 Output: Urine 850 600 Other: # Bowel Movements 2 1 Stool Characteristics Hard Soft Brown Formed Brown Green Active Medications: Current Medications Acetaminophen (Tylenol) 650 mg GT Q4HR PRN PRN Reason: Pain or Fever >101 Stop: 10/24/16 07:33 Albuterol/Ipratropium (Duoneb Neb) 3 ml HHN Q3HR PRN PRN Reason: Shortness of Breath or Wheeze Stop: 10/24/16 07:33 Albuterol/Ipratropium (Duoneb Neb) 3 ml HHN Q6HRT [facility] Stop: 10/24/16 11:59 Last Admin: 08/27/16 13:13 Dose: 3 ml Amlodipine Besylate (Norvasc) 10 mg GT DAILY [facility] Stop: 10/24/16 08:59 Last Admin: 08/27/16 10:50 Dose: Not Given Ascorbic Acid (Vitamin C) 500 mg PO DAILY [facility] Stop: 10/24/16 08:59 Last Admin: 08/27/16 10:50 Dose: Not Given Bisacodyl (Dulcolax 10 Mg Supp) 10 mg RC DAILY PRN PRN Reason: Constipation Stop: 10/24/16 07:33 Chlorhexidine Gluconate (Peridex) 15 ml MM [facility] Stop: 10/24/16 07:59 Last Admin: 08/27/16 08:57 Dose: 15 ml Clonidine HCl (Catapres) 0.1 mg GT Q4H PRN PRN Reason: hypertension Stop: 10/24/16 07:33 Diltiazem HCl (Cardizem) 60 mg GT Q6HR [facility]ER[place] Stop: 10/24/16 11:59 Last Admin: 08/27/16 13:13 Dose: Not Given Docusate Sodium (Colace) 100 mg PO DAILY [facility] Stop: 10/24/16 08:59 Last Admin: 08/27/16 10:50 Dose: Not Given Ferrous Sulfate (Iron) 325 mg PO DAILY [facility] Stop: 10/24/16 08:59 Last Admin: 08/27/16 10:50 Dose: Not Given Finasteride (Proscar) 5 mg GT DAILY TIER[place] PRN Reason: Protocol Stop: 10/24/16 08:59 Last Admin: 08/27/16 10:50 Dose: Not Given Heparin Sodium (Porcine) (Heparin) 5,000 units SUBQ Q12HR [facility] Stop: 10/24/16 20:59 Last Admin: 08/27/16 10:50 Dose: Not Given Hydralazine HCl (Apresoline) 50 mg GT TID [facility] Stop: 10/24/16 08:59 Last Admin: 08/27/16 15:21 Dose: 50 mg Ceftriaxone Sodium 1 gm/ (Sodium Chloride) 50 mls @ 100 mls/hr IV Q24HR [facility] Stop: 10/25/16 08:59 Last Infusion: 08/27/16 10:00 Dose: Infused Azithromycin 500 mg/ Sodium (Chloride) 250 mls @ 250 mls/hr IV 1999 [facility] Stop: 10/24/16 15:59 Last Infusion: 08/26/16 21:45 Dose: Infused Sodium Chloride (Nacl 0.45%) 1,000 mls @ 50 mls/hr IV .Q20H [facility] Stop: 10/24/16 21:59 Last Admin: 08/27/16 04:50 Dose: 50 mls/hr Insulin Human Regular (Novolin R) 0 units SUBQ Q6HR TIERNEY PRN Reason: Protocol Stop: 10/24/16 07:33 Last Admin: 08/27/16 12:00 Dose: Not Given Lactobacillus Rhamnosus (Culturelle) 1 each PO DAILY [facility] Stop: 10/26/16 08:59 Last Admin: 08/27/16 10:51 Dose: Not Given Levetiracetam (Keppra) 500 mg PO Q12H [facility] Stop: 10/25/16 08:59 Last Admin: 08/27/16 10:51 Dose: Not Given Losartan Potassium (Cozaar) 50 mg GT BID [facility] Stop: 10/24/16 08:59 Last Admin: 08/27/16 10:51 Dose: Not Given Miscellaneous (Carbidopa/Levodopa [Carbidopa-Levo 25-100 Mg Odt]) 1 each GT BID [facility]ER[place] Stop: 10/24/16 08:59 Miscellaneous (Vte Chemical Prophylaxis Screen/ Admission) 1 ea PRN PRN PRN Reason: PROTOCOL Stop: 10/24/16 10:59 Miscellaneous (Probiotic Screen) 1 [facility] PRN PRN PRN Reason: PROTOCOL Stop: 10/25/16 11:22 Multivitamins/Vitamin C (Theragran) 1 tab GT DAILY [facility] Stop: 10/24/16 10:59 Last Admin: 08/27/16 10:50 Dose: Not Given Pantoprazole Sodium (Protonix) 40 mg IVP DAILY [facility] Stop: 10/27/16 08:59 Senna (Senna) 8.6 mg GT HS [facility] Stop: 10/24/16 20:59 Last Admin: 08/26/16 21:37 Dose: Not Given Sodium Chloride (Nacl Tab) 1 gm GT BID [place]ERNEY Stop: 10/24/16 08:59 Last Admin: 08/27/16 10:51 Dose: Not Given Sodium Phosphate (Fleet Enema) 135 ml RC Q48HR PRN PRN Reason: Constipation Stop: 10/24/16 07:33 Zinc Sulfate (Zinc Sulfate) 220 mg PO DAILY [facility]ERNEY Stop: 10/24/16 08:59 Last Admin: 08/27/16 10:51 Dose: Not Given General: no acute distress, cachectic HEENT: atraumatic, normocephalic, PERRLA Neck: supple, tracheostomy Cardiovascular: S1S2, regular Lungs: clear to percussion, crackles Abdomen: soft, no tender, no distended Extremities: no cyanosis, no clubbing, no edema Skin: intact - Procedures Procedures: Procedures Procedure Code Date BLOOD TRANSFUSION SERVICE 34955 08/25/16 RESPIRATORY VENTILATION, 24-96 CONSECUTIVE HOURS [id number] 08/25/16 TRANSFUSE NONAUT RED BLOOD CELLS IN PERIPH VEIN, PERC 66876N0 08/25/16 VENT MGMT INPAT INIT DAY 08/25/16 VENT MGMT INPAT SUBQ DAY 08/25/16 Infectious Disease Assmt/Plan - Problem List Patient Problems: All Active Problems Anemia (Acute) D64.9 H/O: CVA (cerebrovascular accident) (Acute) Z86.73 Respiratory failure after trauma (Acute) J95.821 Sacral decubitus ulcer, stage IV (Acute) L89.154 Status post gastrostomy tube placement, follow-up exam (Acute) Z09 Status post tracheostomy (Acute) Z93.0 UTI (urinary tract infection) (Acute) Ventilator dependent (Acute) Z99.11 ulcer beneath penis (Acute) - Assessment Assessment: Impression: 1. Pseudomonas pneumonia. 2. HTN. 3. Sepsis. 4. VDRF. - Plan Plan: Change antibiotics to amikacin. Nutritional Asmnt/Malnutr-PDOC - Dietary Evaluation Malnutrition Findings (Please click <Entered> for more info): Nutritional Asmnt/Malnutrition Start: 08/25/16 11: 48 Text: Status: Complete Freq: Document 08/25/16 11:48 GSUN (Rec: 08/25/16 12:18 GSUN [email or web address]) Nutritional Asmnt/Malnutrition Patient General Information Nutritional Screening High Risk Screening Diagnosis ER: severe anemia, leucocytosis Pertinent Medical Hx/Surgical Hx ER: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 Pt with eyes open, non -verbal, trach vent stable during visit. RD observed blood transfusing and Diabetisource infusing at 65ml /hr. Pt appeared slightly swollen possibly fluid, otherwise approriate for age. CBW via bedscale 155lb. Current Diet Order/ Nutrition Support No diet order entered at this time. Pertinent Medications Vitamin C, dulcolax, Colace, Pepcid, Iron, Novolin, Theragran, Senna, Fleet Enema, Zinc Sulfate Pertinent Labs 08/25: glucose 163H, alkaline phosphatase 176H Nutritional Hx/Data Height 1.73 m Height (Calculated Centimeters) 172.7 Current Weight (lbs) 70.307 kg Weight (Calculated Kilograms) 70.3 Weight (Calculated Grams) 09020.8 [place] Body Weight 154lb Weight Status Approriate GI Symptoms Food Allergies No Cultural/Ethnic/Church Belief Transfer note in chart: Glucerna 1.2 at 65ml/hr x 20hrs, on at 12pm and off at 8am, 75ml water flush q3hrs. This provides 1300ml total volume, 1560kcal, 78g protein, 1063ml free water + 600ml flush. 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 Problem Problem Swallow difficulty related to Etiology dysphagia aeb Signs/Symptoms: PEG dependent Intervention/Recommendation Comments 1. Recommend Diabetisource at 75ml/hr x 20hrs, on at 12pm off at 8am, This provides 1500ml total volume, 1800kcal, 90g protein, 1227ml free water. Water flush 120ml water flush q6hrs. Expected Outcomes/Goals Expected Outcomes/Goals 1. Pt to meet 100% of estimated nutritional needs on tube feeding with tolerance.
[2016-08-27] MEDS ORDERED: Diltiazem 5 mg/mL 5mL Vial IVP PRN (16:35)
[2016-08-28] MEDS: INSULIN HUMAN REGULAR 100 UNITS/ML UNIT SUBQ SCH ×3 (00:17→12:35)
[2016-08-28] MEDS: Diltiazem 30 mg Tab GT SCH ×2 (00:17→05:53)
[2016-08-28] MEDS: Albuterol/Ipratropium Neb 3 ML AERS HHN SCH ×2 (01:21→07:01)
[2016-08-28 05:21] LABS: % BASOPHILS 0.7 % (0.0-2.0); % EOSINOPHILS 4.4 % (0.0-5.0); % LYMPHOCYTES 9.2 % (20.0-50.0); % NEUTROPHILS 78.7 % (40.0-80.0); HEMATOCRIT 30.5 % (39.0-49.0); HEMOGLOBIN 10.2 gm/dL (12.6-17.4); MEAN CELL VOLUME 81.6 fl (80-99); MEAN CORPUSCULAR HEMOGLOBIN 27.3 pg (27.0-31.0); MEAN CORPUSCULAR HGB CONC 33.5 pg (28.0-36.0); MEAN PLATELET VOLUME 7.5 fl; NEUTROPHILE ABSOLUTE 9.2 Th/cmm (1.8-8.0); PLATELET COUNT 267 Th/cmm (150-400); RED BLOOD COUNT 3.74 Mil/cmm (3.80-5.80); RED CELL DISTRIBUTION WIDTH 16.2 % (11.5-20.0); WHITE BLOOD COUNT 11.7 Th/cmm (4.8-10.8)
[2016-08-28 05:41] LABS: ALB/GLOB RATIO 0.7 (1.0-1.8); ALKALINE PHOSPHATASE 159 U/L (34-104); ANION GAP 9.7 (7.0-16.0); BILIRUBIN,TOTAL 0.5 mg/dL (0.3-1.0); BUN - UREA NITROGEN 12 mg/dL (7-25); CALCIUM SERUM 9.4 mg/dL (8.6-10.3); CARBON DIOXIDE 27.3 mEq/L (21.0-31.0); CHLORIDE 103 mEq/L (98-107); CREATININE - SERUM 0.4 mg/dL (0.7-1.3); GLUCOSE 165 mg/dL (70-105); SGOT 16 U/L (13-39); SGPT/ALT 11 U/L (7-52); SODIUM SERUM 136 mEq/L (136-145)
--- NOTE | 2016-08-28 08:30 | Diagnostic Imaging Report ---
Portable chest x-ray HISTORY: Shortness of breath Compared with prior exam of August 25, 2016, persistent bilateral infiltrates with evidence of small bilateral pleural effusions. IMPRESSION: 1. No significant change in the pulmonary status as noted above.
[2016-08-28] MEDS: Multivitamin Tab GT SCH ×2 (09:00→09:22)
[2016-08-28] MEDS: Lactobacillus Rhamnosus 10 Billion CFU Capsule PO SCH (09:21)
[2016-08-28] MEDS: Ferrous Sulfate 325 MG TAB PO SCH (09:22)
--- NOTE | 2016-08-28 13:44 | Pathology Report ---
[id number] Collection Date: 08/27/2016 Surgeon: Dr. Yao Bell Specimen Description: 1. Antrum biopsy 2. Duodenum biopsy Gross Description: Part I: Received in formalin are two ruff soft tissue fragments ranging from 0.1 to 0.2 cm in greatest dimension. Totally submitted in one cassette labeled A. Gross Description: Part II: Received in formalin are two ruff soft tissue fragments ranging from 0.1 to 0.2 cm in greatest dimension. Totally submitted in one cassette labeled B. Microscopic Description: Part I: The histologic sections show gastric mucosa with mild chronic inflammation present consisting of lymphocytes and plasma cells. The Giemsa stain shows no evidence for Helicobacter pylori. Diagnosis: Part I: 1. Mild chronic gastritis, antrum biopsy. 2. The Giemsa stain is negative for Helicobacter pylori. Microscopic Description: Part II: The histologic sections show duodenal mucosa with intact intestinal villi, showing no evidence for villous abnormality. Diagnosis: Part II: No evidence for celiac disease/sprue (duodenal biopsy). [facility]# [id number] [facility]
--- NOTE | 2016-08-28 21:57 | Discharge Summary ---
Covering for Dr. Burgess. HOSPITAL COURSE: This patient has been admitted here for the severe anemia and he received blood transfusion, his hemoglobin was stabilized at 10.2 after the second transfusion, and then he was also found to have MDRO sputum and leukocytosis, for which he has been given the treatment. The patient had an EGD done yesterday and biopsy was also taken and EGD showed just plain gastritis and today we kept him in the ICU to monitor his hemoglobin to see if there is any acute blood loss and today the hemoglobin is 10.7 and his white cell count which was high, from 40 it also came down to 11.7 today. So, overall the patient is doing better and the patient is DNR and son wants him to be transferred to the SNF, so hence, the patient has been discharged on antibiotics to be continued and all the medications to be continued to the SNF, [facility] under the care of Dr. Burgess. PHYSICAL EXAMINATION: VITAL SIGNS: Stable and there is no change in the condition. The patient is not alert, and he is on the trach. HEENT: No change. NECK: Supple and the trach in place. LUNGS: Clear to auscultation. HEART: S1 and S2 heard. ABDOMEN: Soft and bowel sounds are present. G-tube in place. EXTREMITIES: Have no clubbing, no cyanosis, and no edema. ASSESSMENT: The patient's severe anemia resolved and currently hemoglobin is stable at 10.7 and multidrug resistant organisms-positive sputum for which he is on antibiotics and leukocytosis resolving and improved much better, and previous history of cancer, and the patient is do not resuscitate. So, assessment is to transfer him to the [facility] under the care of Dr. Burgess. JOB# [id number]
== END 2016-08-28 15:00 | DRG 871 ==
LOC: ER 01:15 → ICU 02:30
PROVIDERS: ADMIT Internal Medicine; ATTEND Internal Medicine
PROC: 5A1945Z Respiratory Ventilation, 24-96 Consecutive Hours (ICD-10-PCS; principal; 2016-08-25)
PROC: 30233N1 Transfusion of Nonautologous Red Blood Cells into Peripheral Vein, Percutaneous Approach (ICD-10-PCS; 2016-08-25)
PROC: 0DB68ZX Excision of Stomach, Via Natural or Artificial Opening Endoscopic, Diagnostic (ICD-10-PCS; 2016-08-27)
PROC: 0DB98ZX Excision of Duodenum, Via Natural or Artificial Opening Endoscopic, Diagnostic (ICD-10-PCS; 2016-08-27)
DX: A41.9 Sepsis, unspecified organism (principal); J96.21 Acute and chronic respiratory failure with hypoxia; J69.0 Pneumonitis due to inhalation of food and vomit; Z99.11 Dependence on respirator [ventilator] status; G82.50 Quadriplegia, unspecified; J15.1 Pneumonia due to Pseudomonas; Z93.0 Tracheostomy status; E46 Unspecified protein-calorie malnutrition; I13.0 Hypertensive heart and chronic kidney disease with heart failure and stage 1 through stage 4 chronic kidney disease, or unspecified chronic kidney disease; I48.0 Paroxysmal atrial fibrillation; F03.90 Unspecified dementia, unspecified severity, without behavioral disturbance, psychotic disturbance, mood disturbance, and anxiety; K27.9 Peptic ulcer, site unspecified, unspecified as acute or chronic, without hemorrhage or perforation; I50.9 Heart failure, unspecified; D64.9 Anemia, unspecified; G40.909 Epilepsy, unspecified, not intractable, without status epilepticus; N40.0 Benign prostatic hyperplasia without lower urinary tract symptoms; N18.2 Chronic kidney disease, stage 2 (mild); Z66 Do not resuscitate; E03.9 Hypothyroidism, unspecified; K29.70 Gastritis, unspecified, without bleeding; E11.22 Type 2 diabetes mellitus with diabetic chronic kidney disease; R13.10 Dysphagia, unspecified; E78.5 Hyperlipidemia, unspecified; I25.119 Atherosclerotic heart disease of native coronary artery with unspecified angina pectoris; Z68.24 Body mass index [BMI] 24.0-24.9, adult; Z74.01 Bed confinement status; Z93.1 Gastrostomy status; Z86.73 Personal history of transient ischemic attack (TIA), and cerebral infarction without residual deficits
CPT/HCPCS: 36415-UA; 71010-TC; 80053-TC; 80061-TC; 81001-TC; 82270-TC; 82948-90; 83605; 84443-TC; 84484-TC; 85007-TC; 85025-TC; 85027-TC; 85610-TC; 85730-TC; 86592-TC; 86850-TC; 86900-TC; 86901-TC; 86922-TC; 87070; 88305-90; 88312-90; 93005; 94002; 94003; 94640; 94760; C9113; J0278; J0456; J0696; J1644; J1815; J7040; P9016; Z7610

== ENCOUNTER 2016-09-15 18:53 | Inpatient (IN) | payer OTHER, MEDICAID ==
[2016-09-15 20:42] LABS: % BASOPHILS 0.8 % (0.0-2.0)
[2016-09-15 20:49] LABS: % EOSINOPHILS 2.3 % (0.0-5.0); % MONOCYTES 6.2 % (2.0-10.0); % NEUTROPHILS 85.7 % (40.0-80.0); MEAN CELL VOLUME 81.5 fl (80-99); MEAN CORPUSCULAR HEMOGLOBIN 27.6 pg (27.0-31.0); MEAN CORPUSCULAR HGB CONC 33.8 pg (28.0-36.0); MEAN PLATELET VOLUME 8.4 fl; NEUTROPHILE ABSOLUTE 14.2 Th/cmm (1.8-8.0); PLATELET COUNT 210 Th/cmm (150-400); RED BLOOD COUNT 2.89 Mil/cmm (3.80-5.80); RED CELL DISTRIBUTION WIDTH 16.7 % (11.5-20.0)
[2016-09-15 20:52] LABS: WHITE BLOOD COUNT 16.5 Th/cmm (4.8-10.8)
[2016-09-15 20:56] LABS: INR 0.95 (0.5-1.4); PROTHROMBIN TIME (TEST) 9.9 SECONDS (9.5-11.5)
[2016-09-15 20:57] LABS: HEMATOCRIT 23.5 % (39.0-49.0)
[2016-09-15 21:03] LABS: ALB/GLOB RATIO 0.7 (1.0-1.8); ALKALINE PHOSPHATASE 231 U/L (34-104); ANION GAP 10.2 (7.0-16.0); BILIRUBIN,TOTAL 0.5 mg/dL (0.3-1.0); BUN - UREA NITROGEN 35 mg/dL (7-25); CALCIUM SERUM 9.1 mg/dL (8.6-10.3); CARBON DIOXIDE 32.5 mEq/L (21.0-31.0); CHLORIDE 95 mEq/L (98-107); CREATININE - SERUM 0.7 mg/dL (0.7-1.3); GLUCOSE 186 mg/dL (70-105); POTASSIUM SERUM 4.7 mEq/L (3.5-5.1); SGOT 16 U/L (13-39); SGPT/ALT 4 U/L (7-52); SODIUM SERUM 133 mEq/L (136-145)
[2016-09-15] MEDS ORDERED: Piperacillin Sodium/Tazobact 3.375 gm Vial IV ONE (21:34)
--- NOTE | 2016-09-15 21:47 | ED Physician Chart ---
Chief Complaint/HPI - Patient Information Date Seen:: 09/15/16 Time Seen:: 19:00 Chief Complaint:: scrotal edema History of Present Illness:: 76-year-old male, history of CVA trached on ventilator, sent from nursing facility with acute, worsening, constant, severe, scrotal edema 2 days. Associated lower extremity edema. History limited as patient's underlying CVA and does not speak. History provided by EMS and EMS run sheet Allergies:: Allergies Allergy/AdvReac Type Severity Reaction Status Date / Time No Known Allergies Allergy Verified 07/05/16 02:26 Vitals:: Vital Signs - 8 hr 09/15/16 09/15/16 19:08 19:10 Temp 100.0 F HR 68 68 RR 10 BP 126/56 O2 Sat % 98 98 Review of Systems - Review of Systems Other: Complete system review otherwise unremarkable except as noted in history of present illness. Past Medical History - Past Medical History Past Medical History: CVA/TIA, Dementia, Other (facial cancer, anemia, acute respiratory failure, hyperlipidemia, hypothyroidism, unspecified dementia, hydrocephalus) Family History: None Social History: Non Smoker, No Alcohol, No Drug Use, Care Facility Surgical History: PEG/GTube, other Psychiatricy History: Dementia Medication: Reviewed Family Medical History - Family Member Mother History Unknown: Yes Physical Exam - Physical Examination Other:: INITIAL VITAL SIGNS: Reviewed by me GENERAL: Patient is lying on gurney HEAD: Head is normocephalic. No evidence of trauma. Large tumor on the left side of the skull and face. EYES: No scleral icterus bilaterally ENT: Oropharynx is clear of exudate and erythema NECK: Supple. No meningismus. No masses. No evidence of trauma. No cervical spine bony step-offs or crepitus to palpation RESPIRATORY: No tachypnea. Clear to auscultation bilaterally. CV: Regular rate and rhythm. No murmurs, rubs, or gallops ABDOMEN: Soft, non-distended. No masses are G-tube in place. BACK: No ecchymoses. No evidence of trauma EXTREMITIES: The lateral lower extremity +2 pitting edema to the shins. SKIN: Warm and dry. No obvious rash. No jaundice NEUROLOGIC: Face is symmetric. Withdraws to pain in all extremities Labs/Radiology/EKG Results - Lab Results Results: Laboratory Tests 09/15/16 09/15/16 09/15/16 19:30 19:30 19:30 WBC 16.5 H D RBC 2.89 L Hgb 8.0 L Hct 23.5 L* D MCV 81.5 MCH 27.6 MCHC Differential 33.8 RDW 16.7 Plt Count 210 D MPV 8.4 Neutrophils % 85.7 H Lymphocytes % 5.0 L Monocytes % 6.2 Eosinophils % 2.3 Basophils % 0.8 PT 9.9 INR 0.95 PTT (Actin FS) 29.4 Sodium 133 L Potassium 4.7 Chloride 95 L Carbon Dioxide 32.5 H Anion Gap 10.2 BUN 35 H Creatinine 0.7 Est GFR ( Amer) TNP Est GFR (Non-Af Amer) TNP BUN/Creatinine Ratio 50.0 Glucose 186 H Hemoglobin A1c % Whole Bld Lactic Acid Calcium 9.1 Total Bilirubin 0.5 AST 16 ALT 4 L Alkaline Phosphatase 231 H Total Protein 7.1 Albumin 3.0 L Globulin 4.1 Albumin/Globulin Ratio 0.7 L 09/15/16 09/15/16 19:30 20:30 WBC RBC Hgb Hct MCV MCH MCHC Differential RDW Plt Count MPV Neutrophils % Lymphocytes % Monocytes % Eosinophils % Basophils % PT INR PTT (Actin FS) Sodium Potassium Chloride Carbon Dioxide Anion Gap BUN Creatinine Est GFR ( Amer) Est GFR (Non-Af Amer) BUN/Creatinine Ratio Glucose Hemoglobin A1c % 6.4 H Whole Bld Lactic Acid 0.94 Calcium Total Bilirubin AST ALT Alkaline Phosphatase Total Protein Albumin Globulin Albumin/Globulin Ratio - Radiology Results Results: Single AP VIEW Portable Chest X-ray was interpreted independently and contemporaneously by Catrachito Tena MD: No cardiomegaly Normal mediastinum Left lower lobe infiltrates with left sided effusion No pneumothorax No soft tissue or bony abnormalities - EKG Interpretations Comments:: 12-lead EKG Interpretation by Catrachito Tena MD: Atrial flutter with ventricular rate of 67 beats per minute Normal axis Normal intervals No acute ST or T wave changes. No obvious STEMI ED Septic Shock - . Is Septic Shock (SBP<90, OR Lactate>4 mmol\L) present?: No - <6hrs of presentation: Vital Signs: Vital Signs - 8 hr 09/15/16 09/15/16 19:08 19:10 Temp 100.0 F HR 68 68 RR 10 BP 126/56 O2 Sat % 98 98 Reassessment (Disposition) - Reassessment Reassessment:: Patient does not speak. Patient is awake but not alert or oriented. Has left lower lobe pneumonia, acute UTI, fluid overload. We gave IV Lasix here in the ER. Also gave IV Zosyn. Discussed case with admitting physician. Patient will need to be admitted for further workup and treatment. Reassessment Condition:: Improved - Diagnosis Diagnosis:: Left lower lobe pneumonia Acute urinary tract infection Acute anemia, unknown etiology Acute Fluid overload and acute scrotal edema - Patient Disposition Discharge/Transfer:: Acute Care w/in this hosp Admitted to:: ICU Admitting Medical Physician:: Chito Burgess Time:: 22:18 Condition at Disposition:: Improved
[2016-09-15 22:19] LABS: URINE BILIRUBIN NEGATIVE (NEGATIVE); URINE COLOR YELLOW; URINE GLUCOSE (UA) NEGATIVE (NEGATIVE); URINE KETONE NEGATIVE (NEGATIVE)
[2016-09-15 22:20] LABS: URINE BLOOD TRACE (NEGATIVE); URINE PH 8.5; URINE PROTEIN 30 mg/dL (NEGATIVE); URINE UROBILINOGEN 0.2 E.U./dL (0.2 - 1.0)
[2016-09-15 22:21] LABS: URINE BACTERIA MODERATE /hpf (NONE SEEN); URINE EPITHELIAL CELLS MODERATE /lpf (FEW); URINE TRIPLE PHOSPHATE CRYSTAL MANY /hpf (FEW); URINE WBC 25-50 /hpf (0-5)
[2016-09-16 00:03] VITALS: BP 144/47
[2016-09-16] MEDS ORDERED: Albuterol/Ipratropium Neb 3 ML AERS HHN SCH (00:35)
[2016-09-16] MEDS: Levetiracetam 500 mg/5mL 5mL UDC PO SCH ×2 (01:52→12:33)
[2016-09-16] MEDS: INSULIN ASPART SLIDING SCALE 100 UNITS/ML UNIT SUBQ SCH ×4 (01:53→17:33)
[2016-09-16] MEDS ORDERED: Morphine Sulfate 2 mg/mL 1mL Syr IVP PRN ×2 (03:30→03:34)
[2016-09-16 03:51] LABS: HEMATOCRIT 24.6 % (39.0-49.0); HEMOGLOBIN 8.4 gm/dL (12.6-17.4)
[2016-09-16 04:00] LABS: ALB/GLOB RATIO 0.8 (1.0-1.8); ALKALINE PHOSPHATASE 219 U/L (34-104); BILIRUBIN,TOTAL 0.8 mg/dL (0.3-1.0); BUN - UREA NITROGEN 34 mg/dL (7-25); CALCIUM SERUM 9.2 mg/dL (8.6-10.3); CHLORIDE 94 mEq/L (98-107); GLUCOSE 145 mg/dL (70-105); POTASSIUM SERUM 3.9 mEq/L (3.5-5.1); SGOT 15 U/L (13-39); SGPT/ALT 10 U/L (7-52); SODIUM SERUM 136 mEq/L (136-145)
[2016-09-16 04:07] LABS: MEAN CORPUSCULAR HEMOGLOBIN 27.9 pg (27.0-31.0); MEAN PLATELET VOLUME 8.6 fl; PLATELET COUNT 236 Th/cmm (150-400); RED CELL DISTRIBUTION WIDTH 16.9 % (11.5-20.0)
--- NOTE | 2016-09-16 04:19 | Admit Criteria Form ---
Admit Criteria Forms - Admit Criteria Diagnosis: PNEUMONIA, COMMUNITY ACQUIRED Clinical Indications for Admission to Inpatient Care ( Place 'X' for any and all applicable criteria): Admission is indicated for ANY ONE of the following (1)(2)(3): [ ]I. Hypoxemia indicated by ANY ONE of the following: [ ]a) Oxygen saturation less than 90% while breathing room air [ ]b) PO2 less than 60 mm Hg (8.0 kPa) while breathing room air [ ]c) Chronic lung disease with significant deterioration from baseline oxygenation [ ]II. Appropriate diagnostic testing and treatment unavailable in outpatient or recovery facility (eg,testing or infection control measures unavailable(10) [X ]III. Moderate-risk or high-risk category patients (Pneumonia Severity Index (PSI) class IV or V, or CURB-65 score of 3 or greater). [ ]IV. Outpatient treatment failure as indicated by ANY ONE of the following(9) : [ ]a) Failure to respond to antibiotic (eg, resistant organism) [ ]b) Clinically significant adverse effects from medication (eg, vomiting) [ ]c) Complications of pneumonia (eg, empyema, bacteremia) [ ]d) Significant worsening of comorbid cond necessitating inpatient care (eg, chronic heart failure) [ ]V. Intermediate-risk category patients (eg, PSI class III or CURB-65 score 2) who do not improve with initial therapy and observation. [ ]. Immunocompromised patients (eg, AIDS, chronic steroid use) at moderate or high risk based on clinical evaluation. [ ]VII. Complicated pleural effusions (eg, exudative, loculated) [ ]VIII.Hemodynamic instability [ ] IX. Altered mental status that is severe or persistent. [ ]X. Dehydration that is severe or persistent. [ ]XI. Bacteremia [ ]XII. Respiratory finding (eg. tachypnea) that do not respond to outpatient or observation care treatment Extended stay beyond goal length of stay may be needed for (20) [ ]a) Unclear diagnosis [ ]b) Pleural disease [ ]c) Severe pneumonia or treatment failure (25 [ ]d) Respiratory failure (anticipate invasive or noninvasive ventilatory support) [ ]e) Abnormal serum electrolytes (serum Na concentration less than 135 mEq/L (mmol/L) (32)(33) [ ]f) Clinically significant comorbid illness (eg, heart failure, atrial fibrillation with rapid heart rate, alcohol withdrawal, renal insufficiency)(34)(35) [ ]g) Comorbid acute exacerbation of COPD(36) [ ]h) Concomitant diagnosis of malignancy that may be associated with malnutrition, immunologic impairment, or bronchial obstruction. [ ]i) Concomitant altered mental status [ ]j) Culture-identified Gram-negative or antibiotic-resistant organism (eg, Pseudomonas, methicillin-resistant Staphylococcus aureus)(30) [ ]k) Healthcare-associated pneumonia The original [facility] content created by [employer] has been revised. The portions of the content which have been revised are identified through the use of italic text or in bold, and [facility] has neither reviewed nor approved the modified material. All other unmodified content is copyright [facility] [employer]. Please see references footnoted in the original [facility] [employer] edition 2016 Admit Criteria Met?: Yes
[2016-09-16 05:11] LABS: BUN/CREATININE RATIO 48.6; CARBON DIOXIDE 30.9 mEq/L (21.0-31.0); CREATININE - SERUM 0.7 mg/dL (0.7-1.3)
[2016-09-16] MEDS: Diltiazem 30 mg Tab GT SCH ×3 (05:13→17:32)
[2016-09-16 05:49] LABS: WHITE BLOOD COUNT 16.9 Th/cmm (4.8-10.8)
[2016-09-16 06:59] LABS: BAND NEUTROPHILE 6 % (0-10); EOSINOPHIL 3 % (0-5); NEUTROPHILS 89 % (40-80); TOTAL CELLS COUNTED 100
[2016-09-16 07:01] LABS: PLATELET ESTIMATE ADEQUATE (NORMAL)
[2016-09-16] MEDS: Lactobacillus Rhamnosus 10 Billion CFU Capsule GT SCH (08:30)
[2016-09-16] MEDS: Ascorbic Acid 500 mg/5 mL UDC GT SCH (08:31)
[2016-09-16] MEDS: Vancomycin HCl 1.5 GM in Sodium Chloride 0.9% 500 ML IV SCH (08:37)
[2016-09-16] MEDS: Ferrous Sulfate 300 MG/5 ML UDC PO SCH (08:37)
[2016-09-16] MEDS: Chlorhexidine Gluconate 0.12% 15mL Mouthwash MM SCH ×2 (08:39→20:16)
[2016-09-16] MEDS ORDERED: Multivitamin w/ Minerals 15 mL UDC GT SCH (09:00)
--- NOTE | 2016-09-16 09:06 | Diagnostic Imaging Report ---
CHEST X-RAY: AP view INDICATION: pain COMPARISON: Chest x-ray 08/28/2016 FINDINGS: Tracheostomy tube is stable. Congestive changes are seen with superimposed right lung infiltrates and small bilateral effusions right greater than left. Postsurgical changes of left hemithorax are noted. Mild cardiomegaly is noted with atherosclerosis. Areas of calcification the right apex are again noted which may have been due to old infectious or inflammatory disease. IMPRESSION: Congestive changes with superimposed right lung infiltrates and small effusions. There is probable superimposed COPD. Mild cardiomegaly with atherosclerosis Postsurgical changes.
[2016-09-16] MEDS: Albuterol/Ipratropium Neb 3 ML AERS HHN SCH ×2 (12:59→19:08)
[2016-09-16] MEDS: Multivitamin w/ Minerals Tab GT SCH (14:44)
[2016-09-17] MEDS: Diltiazem 30 mg Tab GT SCH ×5 (00:02→23:38)
[2016-09-17] MEDS: Levetiracetam 500 mg/5mL 5mL UDC PO SCH ×2 (00:02→13:21)
[2016-09-17] MEDS: INSULIN ASPART SLIDING SCALE 100 UNITS/ML UNIT SUBQ SCH ×4 (00:09→17:49)
[2016-09-17] MEDS: Albuterol/Ipratropium Neb 3 ML AERS HHN SCH ×4 (01:06→18:46)
[2016-09-17 05:07] LABS: MEAN CELL VOLUME 83.4 fl (80-99); MEAN CORPUSCULAR HEMOGLOBIN 28.9 pg (27.0-31.0); MEAN CORPUSCULAR HGB CONC 34.6 pg (28.0-36.0); PLATELET COUNT 219 Th/cmm (150-400); RED BLOOD COUNT 2.68 Mil/cmm (3.80-5.80); RED CELL DISTRIBUTION WIDTH 16.6 % (11.5-20.0)
[2016-09-17 05:17] LABS: HEMATOCRIT 22.4 % (39.0-49.0); HEMOGLOBIN 7.7 gm/dL (12.6-17.4)
[2016-09-17 05:43] LABS: ALB/GLOB RATIO 0.7 (1.0-1.8); ALKALINE PHOSPHATASE 182 U/L (34-104); ANION GAP 8.2 (7.0-16.0); BILIRUBIN,TOTAL 0.6 mg/dL (0.3-1.0); BUN - UREA NITROGEN 33 mg/dL (7-25); BUN/CREATININE RATIO 47.1; CALCIUM SERUM 9.2 mg/dL (8.6-10.3); CARBON DIOXIDE 34.2 mEq/L (21.0-31.0); CHLORIDE 99 mEq/L (98-107); CREATININE - SERUM 0.7 mg/dL (0.7-1.3); GLUCOSE 139 mg/dL (70-105); POTASSIUM SERUM 3.4 mEq/L (3.5-5.1); SGOT 16 U/L (13-39); SGPT/ALT 11 U/L (7-52); SODIUM SERUM 138 mEq/L (136-145)
[2016-09-17 05:58] LABS: BAND NEUTROPHILE 1 % (0-10); EOSINOPHIL 6 % (0-5); HYPOCHROMIA 1+; NEUTROPHILS 74 % (40-80); PLATELET ESTIMATE ADEQUATE (NORMAL); POLYCHROMASIA 1+; TOTAL CELLS COUNTED 100
--- NOTE | 2016-09-17 07:01 | Consultation ---
DATE OF CONSULTATION: 09/16/2016 REFERRING PHYSICIAN: Dr. Burgess. Thank you very much for this consultation. I will follow the patient with you. HISTORY OF PRESENT ILLNESS: This is a 76-year-old male who has seen by me before previous admission, status post craniotomy, CVA, the patient has hydrocephalus as well who presented with shortness of breath and edema of lower extremities and was admitted for treatment and management. The patient unable to give any history. PAST MEDICAL HISTORY: As above. SOCIAL HISTORY: Not known. REVIEW OF SYSTEMS: Unable to obtain because of the patient's condition. PHYSICAL EXAMINATION: GENERAL: The patient is on a vent, awake. VITAL SIGNS: Temperature is 100.1, pulse is 100, respiration is 25, blood pressure 111/47, saturation 97%. CHEST: Fair air entry, few rhonchi in bases. HEART: Regular rate and rhythm. ABDOMEN: Soft. EXTREMITIES: No edema. LABORATORY DATA: WBC 16.9, hemoglobin 8.4, hematocrit 24.6. Sodium is 136, potassium 3.9, BUN is 34, creatinine 0.7. Chest x-ray showed some congestive changes, right lower lung infiltrate. IMPRESSION: 1. Respiratory failure. 2. Pneumonia. 3. History of cerebrovascular accident. 4. Atrial fibrillation. PLAN: 1. IV antibiotics. 2. Nebulizer treatment. 3. Pulmonary toilet. 4. Ventilator support. 5. Follow up labs and chest x-ray today and sputum culture. JOB# [id number]
[2016-09-17] MEDS ORDERED: Potassium Chloride Elixir 20 mEq /15 mL UDC GT ONE (07:09)
[2016-09-17] MEDS: Chlorhexidine Gluconate 0.12% 15mL Mouthwash MM SCH ×2 (09:23→21:13)
[2016-09-17] MEDS: Ferrous Sulfate 300 MG/5 ML UDC PO SCH (09:28)
[2016-09-17] MEDS: Multivitamin w/ Minerals Tab GT SCH (09:29)
[2016-09-17] MEDS: Ascorbic Acid 500 mg/5 mL UDC GT SCH (09:30)
[2016-09-17] MEDS: Lactobacillus Rhamnosus 10 Billion CFU Capsule GT SCH (09:30)
[2016-09-17] MEDS: Vancomycin HCl 1.5 GM in Sodium Chloride 0.9% 500 ML IV SCH (09:33)
--- NOTE | 2016-09-17 10:00 | Consultation ---
Consult Note - Consult Note Service Date: 09/17/16 Consult Note: [id number]
[2016-09-17 15:28] LABS: ABG SOURCE Arterial; ALLEN TEST YES; BE(B) 13.1 mEq/L (-3.0-3.0); FIO2 50; MECH RATE 16; MECH VT 400; pH 7.52 (7.35-7.45)
[2016-09-17 16:14] LABS: HEMATOCRIT 21.5 % (39.0-49.0); HEMOGLOBIN 7.2 gm/dL (12.6-17.4)
--- NOTE | 2016-09-17 20:43 | Consultation ---
DATE OF CONSULTATION: 09/16/[address] Burgess. HISTORY AND PHYSICAL: This 76-year-old male patient who has been on ventilator with tracheostomy static having cellulitis of the scrotum with swelling. Following this, the patient was brought to the Emergency Room. In the Emergency Room, the patient was in septic shock with blood pressure of 90 systolic. X-ray showed left lower lobe pneumonia. The patient had atrial fibrillation with uncontrolled ventricular response. At this time, Cardiology consult was requested. 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 FAMILY HISTORY: Unremarkable. SOCIAL HISTORY: No history of smoking or alcohol abuse. ALLERGIES: No known allergies. PHYSICAL EXAMINATION: VITAL SIGNS: Blood pressure 90 systolic, pulse 120, irregular respirations, on ventilator. HEAD: Normocephalic. No lumps or bumps. The patient has the left facial tumor. NECK: JVD flat. Thyroid not palpable. Lymph nodes not palpable. CHEST: Shows increased AP diameter. No kyphosis or scoliosis. LUNGS: Bilateral bronchovesicular breath sounds. Bilateral wheezing, rhonchi, and prolonged expiration. HEART: PMI fifth intercostal space with lateral to midclavicular line. S1 irregular, S2, S3, S4, systolic murmur, grade 2/6, lower left sternal border without radiation. ABDOMEN: Soft. Liver and spleen not palpable. The patient has a PEG in place. NEUROLOGIC: The patient has CVA with late effect. CLINICAL IMPRESSION: Septic shock, hypotension, left lower lobe pneumonia, urinary tract infection, atrial fibrillation, rate uncontrolled, cellulitis of the scrotum, chronic respiratory failure, on ventilator with tracheostomy, CVA with late effect, sacral decubitus ulcer, hypothyroid, iron deficiency anemia, hydrocephalus, hyperlipidemia, and left facial cancer. PLAN: Admit the patient. We will control the heart rate. Continue vent management, antibiotics, IV fluid, and also get an echocardiogram to rule out endocarditis or intraventricular thrombus. JOB# [id number]
[2016-09-18] MEDS: Albuterol/Ipratropium Neb 3 ML AERS HHN SCH ×4 (00:30→20:05)
[2016-09-18] MEDS: Levetiracetam 500 mg/5mL 5mL UDC PO SCH ×2 (00:37→11:42)
[2016-09-18 04:55] LABS: MEAN CELL VOLUME 83.7 fl (80-99); MEAN CORPUSCULAR HEMOGLOBIN 27.9 pg (27.0-31.0); MEAN CORPUSCULAR HGB CONC 33.4 pg (28.0-36.0); MEAN PLATELET VOLUME 7.8 fl; PLATELET COUNT 226 Th/cmm (150-400); RED BLOOD COUNT 2.74 Mil/cmm (3.80-5.80); RED CELL DISTRIBUTION WIDTH 16.9 % (11.5-20.0)
[2016-09-18 05:04] LABS: HEMATOCRIT 22.9 % (39.0-49.0); HEMOGLOBIN 7.7 gm/dL (12.6-17.4); WHITE BLOOD COUNT 12.3 Th/cmm (4.8-10.8)
[2016-09-18 05:06] LABS: ALB/GLOB RATIO 0.7 (1.0-1.8); ALKALINE PHOSPHATASE 174 U/L (34-104); ANION GAP 9.3 (7.0-16.0); BILIRUBIN,TOTAL 0.6 mg/dL (0.3-1.0); BUN - UREA NITROGEN 32 mg/dL (7-25); CALCIUM SERUM 8.9 mg/dL (8.6-10.3); CARBON DIOXIDE 34.6 mEq/L (21.0-31.0); CHLORIDE 100 mEq/L (98-107); CREATININE - SERUM 0.8 mg/dL (0.7-1.3); GLUCOSE 182 mg/dL (70-105); POTASSIUM SERUM 3.9 mEq/L (3.5-5.1); SGOT 17 U/L (13-39); SGPT/ALT 6 U/L (7-52); SODIUM SERUM 140 mEq/L (136-145)
--- NOTE | 2016-09-18 05:50 | Consultation ---
DATE OF CONSULTATION: 09/17/2016 REFERRING PHYSICIAN: Dr. Gurpreet Burgess. REASON FOR CONSULTATION: Pneumonia. HISTORY OF PRESENT ILLNESS: The patient is a 76-year-old male with a past medical history of CVA, tracheostomy and ventilator and has history of skin cancer of the scalp status post debridement, brought in from nursing facility for severe scrotal edema for 2 days. He developed lower extremity edema also. On initial evaluation, the patient's temperature was 100 degrees Fahrenheit which went up to 100.2 degrees Fahrenheit yesterday. WBC count was 16,500 and sepsis workup was performed. Chest x-ray showed CHF with superimposed right lower lobe infiltrate and effusion. COPD. Cardiomegaly. ALLERGIES: NKDA. MEDICATIONS: As per medication reconciliation sheet. The patient received vancomycin and Zosyn. Currently, the patient is receiving vancomycin. PAST MEDICAL HISTORY: Includes CVA, TIA, dementia, vent-dependent respiratory failure, status post tracheostomy, cancer on the scalp, hyperlipidemia, hypothyroidism, dementia and hydrocephalous. FAMILY HISTORY: Noncontributory. SOCIAL HISTORY: The patient lives in a nursing facility. No history of smoking, alcohol or drug use. PAST SURGICAL HISTORY: G-tube placement, tracheostomy. FAMILY HISTORY: Noncontributory. REVIEW OF SYSTEMS: Unable to obtain. The patient has fever. PHYSICAL EXAMINATION: CURRENT VITAL SIGNS: Shows temperature is 98.2 degrees Fahrenheit, T-max is 100.2 degrees Fahrenheit, pulse is 81, respiration is 21 and blood pressure is 133/47. GENERAL: The patient is comfortable lying in the bed, not in acute distress. HEENT: Head: dressing on the scalp covering temporal and parietal area. Oral cavity moist, pink tongue. Eyes: Pallor is present. NECK: Trach site is clear. CHEST: Bilateral bronchovesicular sounds. Occasional crackles. No wheezing. HEART: S1, S2 within normal limits. Regular rhythm. No murmur and no gallop. ABDOMEN: Soft, nontender and nondistended. Bowel sounds are present. G-tube site is clear. EXTREMITIES: No cyanosis, no clubbing. The patient has pitting edema at present. LABORATORY DATA: Shows WBC count is 1200, hemoglobin 7.7, hematocrit 22.4, platelets are 219,000, neutrophils 74%. Sodium 138, potassium 3.4, chloride 99, bicarb is 34, BUN is 33, creatinine 0.7, glucose is 139. Urinalysis showed moderate leukoesterase, wbc's 25-50 and moderate bacteria, few yeast. Blood culture 2 sets are negative. Urine culture is pending. Chest x-ray showed congestive changes with right lower lobe infiltrate and effusion. IMPRESSION: 1. Sepsis. 2. Aspiration pneumonia. 3. Urinary tract infection. 4. Scalp skin cancer. 5. Vent-dependent respiratory failure. 6. History of cerebrovascular accident. 7. Dementia. 8. Hydrocephalous. RECOMMENDATIONS: We will resume Zosyn and discontinue vancomycin. Thank you, Dr. Burgess for involving me in taking care of this patient. JOB# [id number] MTDD
[2016-09-18 06:00] LABS: ANISOCYTOSIS 1+; BAND NEUTROPHILE 2 % (0-10); EOSINOPHIL 2 % (0-5); NEUTROPHILS 87 % (40-80); PLATELET ESTIMATE ADEQUATE (NORMAL); POLYCHROMASIA 1+; TOTAL CELLS COUNTED 100
[2016-09-18 06:01] LABS: PLATELET MORPHOLOGY NORMAL (NORMAL)
[2016-09-18] MEDS: Diltiazem 30 mg Tab GT SCH ×3 (06:08→17:57)
[2016-09-18] MEDS: INSULIN ASPART SLIDING SCALE 100 UNITS/ML UNIT SUBQ SCH ×4 (06:43→18:00)
--- NOTE | 2016-09-18 07:27 | Consultation ---
DATE OF CONSULTATION: 09/17/2016 REASON FOR CONSULTATION: Anemia. HISTORY OF PRESENT ILLNESS: This consult was obtained through the courtesy of Dr. Burgess for this 76-year-old with history of CVA, dementia, respiratory failure, hyperlipidemia, hydrocephalus, status post craniotomy, status post facial resection of facial tumor and skin graft, admitted to the hospital for respiratory distress, now becoming more anemic. GI consult was called in for further evaluation. The patient is not able to provide any history. PAST MEDICAL HISTORY: As above, CVA, dementia, respiratory insufficiency, hyperlipidemia, hydrocephalus, facial tumor. PAST SURGICAL HISTORY: Facial resection, tracheostomy, craniotomy and skin graft. SOCIAL HISTORY: Nonsmoker, nonalcoholic and non-IV drug abuser. FAMILY HISTORY: Noncontributory, unobtainable. ALLERGIES: No known drug allergies. MEDICATIONS: The patient is on Tylenol, albuterol, amlodipine, vitamin C, bisacodyl, Sinemet, Catapres, Cardizem, Colace, iron, Proscar, Lasix, heparin, , insulin, Culturelle, Keppra, Ativan, losartan, Zofran, piperacillin and zinc. REVIEW OF SYSTEMS: Unobtainable. PHYSICAL EXAMINATION: GENERAL: The patient is awake and nonverbal. VITAL SIGNS: Blood pressure is 117/45, heart rate 88, respiratory rate is 24 and temperature is 99.5. HEAD AND NECK: Pupils reactive to light. Extraocular muscles could not be tested. Oral cavity, no lesion. NECK: Supple. There is a swelling on the left side. CHEST: Good air entry. LUNGS: Showed bilateral rhonchi. CARDIOVASCULAR SYSTEM: Regular rate and rhythm. No murmur or gallop. ABDOMEN: Soft, positive bowel sounds. There is a G-tube in place. LOWER EXTREMITIES: No edema. CENTRAL NERVOUS SYSTEM: Unable to evaluate. LABORATORY DATA: Hemoglobin is 7.2. IMPRESSION: This is a 76-year-old with severe anemia. ASSESSMENT AND PLAN: 1. Anemia rule out chronic disease versus combination of chronic disease and GI blood loss versus hemolysis. We will check stool for occult blood, we will check serum iron, TIBC, ferritin, B12, folic acid. Check heptoglobin. Transfuse if needed. If there is GI bleed or iron deficiency, GI workup. 2. Dysphagia. Continue tube feeding. Other medical problems such as dementia, CVA, hydrocephalus, history of facial tumor, etc., as per Dr. Burgess. Thank you Dr. Burgess for allowing me to participate in the care of the patient. If you have any further questions, please let me know. JOB# [id number] MTDD
[2016-09-18 08:00] LABS: HEMATOCRIT 22.9 % (40.0-54.0); RBC RETICULOCYTE COUNT 2.74 Mil/cmm; RETICULOCYTES % COUNTED 8.5 % (0.5-1.5)
[2016-09-18] MEDS: Multivitamin w/ Minerals Tab GT SCH (08:51)
[2016-09-18] MEDS: Lactobacillus Rhamnosus 10 Billion CFU Capsule GT SCH (08:52)
[2016-09-18] MEDS: Ferrous Sulfate 300 MG/5 ML UDC PO SCH (08:52)
[2016-09-18] MEDS: Ascorbic Acid 500 mg/5 mL UDC GT SCH (08:54)
[2016-09-18] MEDS: Chlorhexidine Gluconate 0.12% 15mL Mouthwash MM SCH ×2 (08:54→20:00)
--- NOTE | 2016-09-18 09:14 | Diagnostic Imaging Report ---
Portable chest x-ray HISTORY: Shortness of breath Compared with prior exam of September 15, 2016, there remains generalized accentuation of the interstitial lung markings. Pleural reaction noted about the costophrenic angles bilaterally. Findings may be associated with small effusions or pleural thickening. Tracheostomy noted. IMPRESSION: 1. No change in the pulmonary status as noted above.
[2016-09-18] MEDS: Venelex 60gm Tube TP SCH (15:15)
[2016-09-18] MEDS ORDERED: Amikacin 500 mg in D5W 100mL (Q24HR) IV SCH (18:00)
--- NOTE | 2016-09-18 20:31 | General Progress Note ---
Subjective - Review of Systems Service Date: 09/18/16 Objective - Results Result Diagrams: 09/18/16 04:27 09/18/16 04:27 Recent Labs: Laboratory Last Values WBC 12.3 Th/cmm (4.8-10.8) H 09/18/16 04:27 RBC 2.74 Mil/cmm (3.80-5.80) L 09/18/16 04:27 Hgb 7.7 gm/dL (12.6-17.4) L* 09/18/16 04:27 Hct 22.9 % (40.0-54.0) L* 09/18/16 04:27 MCV 83.7 fl (80-99) 09/18/16 04:27 MCH 27.9 pg (27.0-31.0) 09/18/16 04:27 MCHC Differential 33.4 pg (28.0-36.0) 09/18/16 04:27 RDW 16.9 % (11.5-20.0) 09/18/16 04:27 Plt Count 226 Th/cmm (150-400) 09/18/16 04:27 MPV 7.8 fl 09/18/16 04:27 Neutrophils % 85.7 % (40.0-80.0) H 09/15/16 19:30 Band Neutrophils % 2 % (0-10) 09/18/16 04:27 Lymphocytes % 5.0 % (20.0-50.0) L 09/15/16 19:30 Monocytes % 6.2 % (2.0-10.0) 09/15/16 19:30 Eosinophils % 2.3 % (0.0-5.0) 09/15/16 19:30 Basophils % 0.8 % (0.0-2.0) 09/15/16 19:30 Neutrophils (Manual) 87 % (40-80) H 09/18/16 04:27 Lymphocytes 6 % (20-50) L 09/18/16 04:27 Monocytes 3 % (2-10) 09/18/16 04:27 Eosinophils 2 % (0-5) 09/18/16 04:27 Hypochromia 1+ 09/17/16 04:42 Platelet Estimate ADEQUATE (NORMAL) 09/18/16 04:27 Platelet Morphology NORMAL (NORMAL) 09/18/16 04:27 Polychromasia 1+ 09/18/16 04:27 Anisocytosis 1+ 09/18/16 04:27 RBC Morph Micro Appear ABNORMAL (NORMAL) 09/18/16 04:27 Total Retics Counted 8.5 % (0.5-1.5) H 09/18/16 04:27 Absolute Retic 232.9 Th/cmm 09/18/16 04:27 Corrected Retic Count 4.3 % (0.5-1.5) H 09/18/16 04:27 PT 9.9 SECONDS (9.5-11.5) 09/15/16 19:30 INR 0.95 (0.5-1.4) 09/15/16 19:30 PTT (Actin FS) 29.4 SECONDS (26.0-38.0) 09/15/16 19:30 Specimen Source Arterial 09/17/16 15:10 Sample Site Left Radial 09/17/16 15:10 pH 7.52 (7.35-7.45) H 09/17/16 15:10 pCO2 46.0 mmHg (35.0-45.0) H 09/17/16 15:10 pO2 56.0 mmHg (80.0-100.0) L 09/17/16 15:10 HCO3 35.0 mEq/L (20.0-26.0) H 09/17/16 15:10 Base Excess 13.1 mEq/L (-3.0-3.0) H 09/17/16 15:10 O2 Saturation 92.0 % (92.0-100.0) 09/17/16 15:10 Gary Test YES 09/17/16 15:10 Vent Rate 16 09/17/16 15:10 Inspired O2 50 09/17/16 15:10 Tidal Volume 400 09/17/16 15:10 PEEP 5 09/17/16 15:10 Pressure (ins/psv/peep) NA 09/17/16 15:10 Critical Value E.VAZQUEZ 09/17/16 15:10 Sodium 140 mEq/L (136-145) 09/18/16 04:27 Potassium 3.9 mEq/L (3.5-5.1) 09/18/16 04:27 Chloride 100 mEq/L (98-107) 09/18/16 04:27 Carbon Dioxide 34.6 mEq/L (21.0-31.0) H 09/18/16 04:27 Anion Gap 9.3 (7.0-16.0) 09/18/16 04:27 BUN 32 mg/dL (7-25) H 09/18/16 04:27 Creatinine 0.8 mg/dL (0.7-1.3) 09/18/16 04:27 Est GFR ( Amer) TNP 09/18/16 04:27 Est GFR (Non-Af Amer) TNP 09/18/16 04:27 BUN/Creatinine Ratio 40.0 09/18/16 04:27 Glucose 182 mg/dL (70-105) H 09/18/16 04:27 POC Glucose 155 MG/DL (70 - 105) H 09/18/16 17:44 Hemoglobin A1c % 6.4 % (4.0-6.0) H 09/15/16 20:30 Whole Bld Lactic Acid 0.94 mmol/L (0.60-1.99) 09/15/16 19:30 Calcium 8.9 mg/dL (8.6-10.3) 09/18/16 04:27 Total Bilirubin 0.6 mg/dL (0.3-1.0) 09/18/16 04:27 AST 17 U/L (13-39) 09/18/16 04:27 ALT 6 U/L (7-52) L 09/18/16 04:27 Alkaline Phosphatase 174 U/L (34-104) H 09/18/16 04:27 Creatine Kinase 24 U/L (30-223) L 09/16/16 11:40 Troponin I 0.02 ng/mL (0.01-0.05) 09/16/16 11:40 B-Natriuretic Peptide 522.0 pg/mL (5.0-100.0) H 09/17/16 04:42 Total Protein 7.2 gm/dL (6.0-8.3) 09/18/16 04:27 Albumin 3.0 gm/dL (4.2-5.5) L 09/18/16 04:27 Globulin 4.2 gm/dL 09/18/16 04:27 Albumin/Globulin Ratio 0.7 (1.0-1.8) L 09/18/16 04:27 Urine Source [place] 09/15/16 21:30 Urine Color YELLOW 09/15/16 21:30 Urine Clarity CLOUDY (CLEAR) 09/15/16 21:30 Urine pH 8.5 09/15/16 21:30 Ur Specific [place] 1.015 (1.005-1.030) 09/15/16 21:30 Urine Protein 30 mg/dL (NEGATIVE) H 09/15/16 21:30 Urine Glucose (UA) NEGATIVE mg/dL (NEGATIVE) 09/15/16 21:30 Urine Ketones NEGATIVE mg/dL (NEGATIVE) 09/15/16 21:30 Urine Blood TRACE (NEGATIVE) 09/15/16 21:30 Urine Nitrate NEGATIVE (NEGATIVE) 09/15/16 21:30 Urine Bilirubin NEGATIVE (NEGATIVE) 09/15/16 21:30 Urine Urobilinogen 0.2 E.U./dL (0.2 - 1.0) 09/15/16 21:30 Ur Leukocyte Esterase MODERATE (NEGATIVE) H 09/15/16 21:30 Urine RBC 2-5 /hpf (0-5) H 09/15/16 21:30 Urine WBC 25-50 /hpf (0-5) H 09/15/16 21:30 Ur Epithelial Cells MODERATE /lpf (FEW) 09/15/16 21:30 Triple Phos Crystals MANY /hpf (FEW) 09/15/16 21:30 Urine Bacteria MODERATE /hpf (NONE SEEN) 09/15/16 21:30 Urine Yeast FEW /hpf (NONE SEEN) H 09/15/16 21:30 Vancomycin Trough 20.0 ug/mL (10-20) 09/18/16 08:00 Blood Type O POSITIVE 09/17/16 07:30 Antibody Screen NEGATIVE 09/17/16 07:30 Crossmatch See Detail 09/17/16 07:30 - Physical Exam Vitals and I&O: Vital Signs Temp 98.8 F 09/18/16 16:00 Pulse 90 09/18/16 19:55 Resp 25 09/18/16 18:00 BP 119/49 09/18/16 18:00 Pulse Ox 97 09/18/16 19:55 Intake & Output 09/18/16 09/18/16 09/19/16 06:59 18:59 06:59 Intake Total 1035 100 Output Total 800 Balance 235 100 Weight (lbs) 65.68 kg Intake: Intake, IV Amount 200 Piperacillin Sodium/ 200 Tazobact 4.5 gm In Sodium Chloride 0.9% 100 ml @ 100 mls/hr IV Q8HR [facility] Rx #:[id number] Oral 0 Tube Feeding 715 Other 120 100 Output: Urine 800 Other: # Bowel Movements 0 Active Medications: Current Medications Acetaminophen (Tylenol 650mg/20.3ml Suspension) 650 mg GT Q4H PRN PRN Reason: Fever >101 Stop: 11/15/16 00:34 Last Admin: 09/17/16 15:03 Dose: 650 mg Albuterol/Ipratropium (Duoneb Neb) 3 ml HHN Q6HRT [facility] Stop: 11/15/16 12:59 Last Admin: 09/18/16 20:05 Dose: 3 ml Amlodipine Besylate (Norvasc) 10 mg GT DAILY [facility] Stop: 11/15/16 08:59 Last Admin: 09/18/16 08:51 Dose: 10 mg Ascorbic Acid (Vitamin C) 500 mg GT DAILY [facility] Stop: 11/15/16 08:59 Last Admin: 09/18/16 08:54 Dose: 500 mg Bisacodyl (Dulcolax 10 Mg Supp) 10 mg RC DAILY PRN PRN Reason: Constipation Stop: 11/15/16 00:34 Carbidopa/Levodopa (Sinemet 25mg-100 Mg) 1 tab GT BID [facility] Stop: 11/15/16 08:59 Last Admin: 09/18/16 17:57 Dose: 1 tab Chlorhexidine Gluconate (Peridex) 15 ml MM 0800,2000 [facility] Stop: 11/15/16 07:59 Last Admin: 09/18/16 08:54 Dose: 15 ml Clonidine HCl (Catapres) 0.1 mg GT Q4H PRN PRN Reason: SBP GREATER THAN 160 Stop: 11/15/16 00:34 Diltiazem HCl (Cardizem) 60 mg GT Q6HR [facility] Stop: 11/15/16 05:59 Last Admin: 09/18/16 17:57 Dose: 60 mg Docusate Sodium (Colace) 100 mg PO DAILY [facility] Stop: 11/15/16 08:59 Last Admin: 09/18/16 08:54 Dose: 100 mg Ferrous Sulfate (Iron) 330 mg PO DAILY [facility] Stop: 11/15/16 08:59 Last Admin: 09/18/16 08:52 Dose: 330 mg Finasteride (Proscar) 5 mg GT DAILY [facility] PRN Reason: Protocol Stop: 11/15/16 08:59 Last Admin: 09/18/16 08:53 Dose: 5 mg Furosemide (Lasix) 40 mg IVP BID [facility] Stop: 11/15/16 08:59 Last Admin: 09/18/16 17:57 Dose: 40 mg Heparin Sodium (Porcine) (Heparin) 5,000 units SUBQ Q12HR [facility] Stop: 11/15/16 08:59 Last Admin: 09/18/16 08:55 Dose: 5,000 units Hydralazine HCl (Apresoline) 50 mg GT TID [facility] Stop: 11/15/16 08:59 Last Admin: 09/18/16 13:39 Dose: 50 mg Amikacin Sulfate 500 mg/ (Dextrose) 102 mls @ 100 mls/hr IV Q12H [facility] Stop: 11/17/16 19:59 Insulin Aspart (Novolog Insulin Sliding Scale) 0 units SUBQ Q6HR [facility] PRN Reason: Protocol Stop: 11/15/16 13:14 Last Admin: 09/18/16 18:00 Dose: 2 units Lactobacillus Rhamnosus (Culturelle) 1 each GT DAILY [facility] Stop: 11/15/16 08:59 Last Admin: 09/18/16 08:52 Dose: 1 each Levetiracetam (Keppra) 500 mg PO Q12H [facility] Stop: 11/15/16 00:34 Last Admin: 09/18/16 11:42 Dose: 500 mg Lorazepam (Ativan) 1 mg IVP Q6HR PRN; Protocol PRN Reason: Anxiety Stop: 11/15/16 03:31 Losartan Potassium (Cozaar) 50 mg GT BID [facility] Stop: 11/15/16 08:59 Last Admin: 09/18/16 17:56 Dose: 50 mg Miscellaneous (Amikacin Iv Per Pharmacy) 1 ea MC PRN PRN PRN Reason: PROTOCOL Stop: 11/17/16 15:21 Morphine Sulfate (Morphine) 1 mg IVP Q4HR PRN PRN Reason: Pain (Moderate) Stop: 11/15/16 03:29 Morphine Sulfate (Morphine) 2 mg IVP Q4HR PRN PRN Reason: Pain (Severe) Stop: 11/15/16 03:33 Last Admin: 09/16/16 04:26 Dose: 2 mg Ondansetron HCl (Zofran) 4 mg IV Q4H PRN PRN Reason: Nausea / Vomiting Stop: 11/15/16 03:29 Senna (Senna) 17.2 mg GT HS [facility] Stop: 11/15/16 20:59 Last Admin: 09/17/16 21:13 Dose: 17.2 mg Sodium Chloride (Nacl Tab) 1 gm GT BID [facility] Stop: 11/15/16 08:59 Last Admin: 09/18/16 17:57 Dose: 1 gm Zinc Sulfate (Zinc Sulfate) 220 mg GT DAILY [facility] Stop: 11/15/16 08:59 Last Admin: 09/18/16 08:52 Dose: 220 mg - Procedures Procedures: Procedures Procedure Code Date BLOOD TRANSFUSION SERVICE 75005 08/25/16 EGD ENDO MUCOSAL RESECTION 72925 08/25/16 EXCISION OF DUODENUM, ENDO, DIAGN [id number] 08/25/16 EXCISION OF STOMACH, ENDO, DIAGN [id number] 08/25/16 RESPIRATORY VENTILATION, 24-96 CONSECUTIVE HOURS [id number] 09/15/16 TRANSFUSE NONAUT RED BLOOD CELLS IN PERIPH VEIN, PERC 39036V7 08/25/16 VENT MGMT INPAT INIT DAY 98603 09/15/16 VENT MGMT INPAT SUBQ DAY 31367 09/15/16 Assessment/Plan - Problem List Patient Problems: All Active Problems PENILE LACERATION/SKIN TEAR WITH EDEMA (Acute) Anemia (Acute) D64.9 H/O: CVA (cerebrovascular accident) (Acute) Z86.73 Respiratory failure after trauma (Acute) J95.821 Sacral decubitus ulcer, stage IV (Acute) L89.154 Status post gastrostomy tube placement, follow-up exam (Acute) Z09 Status post tracheostomy (Acute) Z93.0 UTI (urinary tract infection) (Acute) Ventilator dependent (Acute) Z99.11 ulcer beneath penis (Acute) Nutritional Asmnt/Malnutr-PDOC - Dietary Evaluation Malnutrition Findings (Please click <Entered> for more info): Nutritional Asmnt/Malnutrition Start: 09/16/16 11: 52 Text: Status: Complete Freq: Document 09/16/16 11:52 GSUN (Rec: 09/16/16 11:59 GSUN [email or web address]) Nutritional Asmnt/Malnutrition Patient General Information Nutritional Screening Consult Diagnosis ER: left lower lobe PNA, UTI, fluid overload, scrotal edema Pertinent Medical Hx/Surgical Hx ER: CVA/TIA, dementia, facial cancer, anemia, acute respiratory failure, hyperlipidemia, hypothyroidism , unspecified dementia, hydrocepalus Subjective Information 76 year old male from SNF. RD consult for Tai Poole. Pt is non-verbal, trach on vent, resting with eyes closed. Observed no tube feeding at this time. Confirmed with RN, order for on at 12pm. 160lb past two adm at this hospital within this year, CBW 151lb on EMR, questionable weights, using IBW for calculations. Current Diet Order/ Nutrition Support Diabetisource 65ml/hr x 20hrs, 12pm on and 8am off Pertinent Medications Vitamin C, Colace, Iron, Lasix , Novolog, Culturelle, Morphine, Zofran, Zinc Sulfate Pertinent Labs 09/15: A1c 6.4H 09/16: glucose 145H Nutritional Hx/Data Height 1.73 m Height (Calculated Centimeters) 172.7 Current Weight (lbs) 68.492 kg Weight (Calculated Kilograms) 68.5 Weight (Calculated Grams) 42249.4 Usual body Weight (lbs) 160 [place] Body Weight 154 Weight Status Approriate GI Symptoms Cultural/Ethnic/[employer] Bel[employer] SNF order: Glucerna 1.2 at 65ml/hrs x 20hrs, on at 12pm and off at 8am, providing 1560kcal. 75ml water flush every 3hrs x 20hrs. Skin Integrity/Comment: Tai Poole. 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 Problem Problem Inadequate intake from enteral nutrition infusion related to Etiology estimated nutritional needs aeb Signs/Symptoms: current order 89% of lower end of estimated kcal needs using ideal body weight at 25kcal/ kg Intervention/Recommendation Comments 1. Recommend increasing tube feeding rate to Diabetisource at 75ml/hr x 20hrs, providing 1800kcal and 90g to provide to meet 100% of lower end of estimated kcal and prot needs. Expected Outcomes/Goals Expected Outcomes/Goals 1. Pt to meet 100% of estimated nutritional needs on tube feeding with tolerance.
--- NOTE | 2016-09-19 00:05 | History & Physical ---
ADMIT DATE: 09/15/2016 HISTORY OF PRESENT ILLNESS: The patient is a 76-year-old male patient. The patient is well known to me. The patient is known to have history of CVA. The patient is status post trach and PEG, history of right facial tumor, history of dementia, and history of hyperlipidemia. The patient is a resident of [facility] where I will be following the patient. Essentially, he has a lot of swelling over the lower extremities as well as his scrotum, was referred and was admitted for congestive heart failure. ALLERGIES: The patient has no known allergies. PAST MEDICAL HISTORY: As enumerated above. Dementia, anemia, respiratory failure, hyperlipidemia, hypothyroidism, and hydrocephalus. PHYSICAL EXAMINATION: GENERAL: The patient is status post trach and PEG; has a large tumor on the left side of the face. ENT: Normal. LUNGS: Bilateral rhonchi. CARDIOVASCULAR SYSTEM: S1, S2 heard. ABDOMEN: Soft. EXTREMITIES: Revealed peripheral edema as well as scrotal edema. LAB DATA: The patient's hemoglobin was 8.0, hematocrit was 23, and his white count was high at 16.5. The patient's EKG shows sinus tachycardia, and the patient was followed, he was given Zosyn and started also on vancomycin. The patient's chest x-ray showed left lower lobe pneumonia. DIAGNOSES: Left lower lobe pneumonia; urinary tract infection; severe anemia, unknown etiology; fluid overload; scrotal edema; congestive heart failure; history of status post trach, status post PEG; history of cerebrovascular accident; history of dementia; history of hypothyroidism; history of right facial tumor; and history of hyperlipidemia. PLAN: The patient is being admitted. I will go ahead and give him IV Lasix. I will have Dr. Filiberto Monzon see the patient. I will have Dr. Simon Monzon see the patient, and I will follow the patient. JOB# [id number]
[2016-09-19] MEDS: Levetiracetam 500 mg/5mL 5mL UDC PO SCH ×2 (00:35→14:00)
[2016-09-19] MEDS: INSULIN ASPART SLIDING SCALE 100 UNITS/ML UNIT SUBQ SCH ×4 (00:58→17:40)
[2016-09-19] MEDS: Albuterol/Ipratropium Neb 3 ML AERS HHN SCH ×4 (02:12→19:37)
[2016-09-19] MEDS: Diltiazem 30 mg Tab GT SCH ×4 (06:00→17:36)
[2016-09-19] MEDS: Chlorhexidine Gluconate 0.12% 15mL Mouthwash MM SCH ×2 (08:00→19:44)
[2016-09-19 08:08] LABS: IRON SATURATION 14 % (15-55); TIBC (LCI) 212 ug/dL (250-450); UIBC 182 ug/dL (111-343)
[2016-09-19] MEDS ORDERED: Probiotic Screen MC PRN (09:27)
[2016-09-19] MEDS: Ascorbic Acid 500 mg/5 mL UDC GT SCH (09:54)
[2016-09-19] MEDS: Ferrous Sulfate 300 MG/5 ML UDC PO SCH (09:54)
[2016-09-19] MEDS: Venelex 60gm Tube TP SCH (09:54)
[2016-09-19] MEDS: Multivitamin w/ Minerals Tab GT SCH (09:55)
[2016-09-19] MEDS: Lactobacillus Rhamnosus 10 Billion CFU Capsule GT SCH (09:55)
[2016-09-19 10:28] LABS: MEAN CELL VOLUME 81.7 fl (80-99); MEAN CORPUSCULAR HEMOGLOBIN 27.5 pg (27.0-31.0); MEAN CORPUSCULAR HGB CONC 33.7 pg (28.0-36.0); MEAN PLATELET VOLUME 7.6 fl; PLATELET COUNT 240 Th/cmm (150-400); RED BLOOD COUNT 2.85 Mil/cmm (3.80-5.80); RED CELL DISTRIBUTION WIDTH 16.9 % (11.5-20.0)
[2016-09-19 10:57] LABS: HEMATOCRIT 23.3 % (39.0-49.0); HEMOGLOBIN 7.8 gm/dL (12.6-17.4)
[2016-09-19 11:49] LABS: ANISOCYTOSIS 1+; BASOPHIL 2 % (0-3); EOSINOPHIL 12 % (0-5); NEUTROPHILS 70 % (40-80); PLATELET ESTIMATE ADEQUATE (NORMAL); PLATELET MORPHOLOGY NORMAL (NORMAL); POLYCHROMASIA 1+; TOTAL CELLS COUNTED 100
[2016-09-19 14:12] LABS: FERRITIN 718 ng/mL (30-400); FOLIC ACID >20.0 ng/mL (>3.0)
--- NOTE | 2016-09-19 14:22 | Infectious Disease Prog Note ---
Infectious Disease Subjective - Review of Systems Service Date: 09/19/16 Subjective: No change, there is no fever, on ventilator. Infectious Disease Objective - Results Result Diagrams: 09/19/16 10:15 09/18/16 04:27 Recent Labs: Laboratory Last Values WBC 13.0 Th/cmm (4.8-10.8) H 09/19/16 10:15 RBC 2.85 Mil/cmm (3.80-5.80) L 09/19/16 10:15 Hgb 7.8 gm/dL (12.6-17.4) L* 09/19/16 10:15 Hct 23.3 % (39.0-49.0) L* 09/19/16 10:15 MCV 81.7 fl (80-99) 09/19/16 10:15 MCH 27.5 pg (27.0-31.0) 09/19/16 10:15 MCHC Differential 33.7 pg (28.0-36.0) 09/19/16 10:15 RDW 16.9 % (11.5-20.0) 09/19/16 10:15 Plt Count 240 Th/cmm (150-400) 09/19/16 10:15 MPV 7.6 fl 09/19/16 10:15 Neutrophils % 85.7 % (40.0-80.0) H 09/15/16 19:30 Band Neutrophils % 2 % (0-10) 09/18/16 04:27 Lymphocytes % 5.0 % (20.0-50.0) L 09/15/16 19:30 Monocytes % 6.2 % (2.0-10.0) 09/15/16 19:30 Eosinophils % 2.3 % (0.0-5.0) 09/15/16 19:30 Basophils % 0.8 % (0.0-2.0) 09/15/16 19:30 Neutrophils (Manual) 70 % (40-80) 09/19/16 10:15 Lymphocytes 9 % (20-50) L 09/19/16 10:15 Monocytes 7 % (2-10) 09/19/16 10:15 Eosinophils 12 % (0-5) H 09/19/16 10:15 Basophils 2 % (0-3) 09/19/16 10:15 Hypochromia 1+ 09/17/16 04:42 Platelet Estimate ADEQUATE (NORMAL) 09/19/16 10:15 Platelet Morphology NORMAL (NORMAL) 09/19/16 10:15 Polychromasia 1+ 09/19/16 10:15 Anisocytosis 1+ 09/19/16 10:15 RBC Morph Micro Appear ABNORMAL (NORMAL) 09/19/16 10:15 Total Retics Counted 8.5 % (0.5-1.5) H 09/18/16 04:27 Absolute Retic 232.9 Th/cmm 09/18/16 04:27 Corrected Retic Count 4.3 % (0.5-1.5) H 09/18/16 04:27 PT 9.9 SECONDS (9.5-11.5) 09/15/16 19:30 INR 0.95 (0.5-1.4) 09/15/16 19:30 PTT (Actin FS) 29.4 SECONDS (26.0-38.0) 09/15/16 19:30 Specimen Source Arterial 09/17/16 15:10 Sample Site Left Radial 09/17/16 15:10 pH 7.52 (7.35-7.45) H 09/17/16 15:10 pCO2 46.0 mmHg (35.0-45.0) H 09/17/16 15:10 pO2 56.0 mmHg (80.0-100.0) L 09/17/16 15:10 HCO3 35.0 mEq/L (20.0-26.0) H 09/17/16 15:10 Base Excess 13.1 mEq/L (-3.0-3.0) H 09/17/16 15:10 O2 Saturation 92.0 % (92.0-100.0) 09/17/16 15:10 Gary Test YES 09/17/16 15:10 Vent Rate 16 09/17/16 15:10 Inspired O2 50 09/17/16 15:10 Tidal Volume 400 09/17/16 15:10 PEEP 5 09/17/16 15:10 Pressure (ins/psv/peep) NA 09/17/16 15:10 Critical Value E.VAZQUEZ 09/17/16 15:10 Sodium 140 mEq/L (136-145) 09/18/16 04:27 Potassium 3.9 mEq/L (3.5-5.1) 09/18/16 04:27 Chloride 100 mEq/L (98-107) 09/18/16 04:27 Carbon Dioxide 34.6 mEq/L (21.0-31.0) H 09/18/16 04:27 Anion Gap 9.3 (7.0-16.0) 09/18/16 04:27 BUN 32 mg/dL (7-25) H 09/18/16 04:27 Creatinine 0.8 mg/dL (0.7-1.3) 09/18/16 04:27 Est GFR ( Amer) TNP 09/18/16 04:27 Est GFR (Non-Af Amer) TNP 09/18/16 04:27 BUN/Creatinine Ratio 40.0 09/18/16 04:27 Glucose 182 mg/dL (70-105) H 09/18/16 04:27 POC Glucose 142 MG/DL (70 - 105) H 09/19/16 11:23 Hemoglobin A1c % 6.4 % (4.0-6.0) H 09/15/16 20:30 Whole Bld Lactic Acid 0.94 mmol/L (0.60-1.99) 09/15/16 19:30 Calcium 8.9 mg/dL (8.6-10.3) 09/18/16 04:27 Iron 30 ug/dL (38-169) L 09/18/16 04:27 TIBC 212 ug/dL (250-450) L 09/18/16 04:27 Iron Saturation 14 % (15-55) L 09/18/16 04:27 Unsaturated IBC 182 ug/dL (111-343) 09/18/16 04:27 Ferritin 718 ng/mL (30-400) H 09/18/16 04:27 Total Bilirubin 0.6 mg/dL (0.3-1.0) 09/18/16 04:27 AST 17 U/L (13-39) 09/18/16 04:27 ALT 6 U/L (7-52) L 09/18/16 04:27 Alkaline Phosphatase 174 U/L (34-104) H 09/18/16 04:27 Creatine Kinase 24 U/L (30-223) L 09/16/16 11:40 Troponin I 0.02 ng/mL (0.01-0.05) 09/16/16 11:40 B-Natriuretic Peptide 522.0 pg/mL (5.0-100.0) H 09/17/16 04:42 Total Protein 7.2 gm/dL (6.0-8.3) 09/18/16 04:27 Albumin 3.0 gm/dL (4.2-5.5) L 09/18/16 04:27 Globulin 4.2 gm/dL 09/18/16 04:27 Albumin/Globulin Ratio 0.7 (1.0-1.8) L 09/18/16 04:27 Vitamin B12 1025 pg/mL (211-946) H 09/18/16 04:27 Folic Acid >20.0 ng/mL (>3.0) 09/18/16 04:27 Urine Source [place] 09/15/16 21:30 Urine Color YELLOW 09/15/16 21:30 Urine Clarity CLOUDY (CLEAR) 09/15/16 21:30 Urine pH 8.5 09/15/16 21:30 Ur Specific Sylvester 1.015 (1.005-1.030) 09/15/16 21:30 Urine Protein 30 mg/dL (NEGATIVE) H 09/15/16 21:30 Urine Glucose (UA) NEGATIVE mg/dL (NEGATIVE) 09/15/16 21:30 Urine Ketones NEGATIVE mg/dL (NEGATIVE) 09/15/16 21:30 Urine Blood TRACE (NEGATIVE) 09/15/16 21:30 Urine Nitrate NEGATIVE (NEGATIVE) 09/15/16 21:30 Urine Bilirubin NEGATIVE (NEGATIVE) 09/15/16 21:30 Urine Urobilinogen 0.2 E.U./dL (0.2 - 1.0) 09/15/16 21:30 Ur Leukocyte Esterase MODERATE (NEGATIVE) H 09/15/16 21:30 Urine RBC 2-5 /hpf (0-5) H 09/15/16 21:30 Urine WBC 25-50 /hpf (0-5) H 09/15/16 21:30 Ur Epithelial Cells MODERATE /lpf (FEW) 09/15/16 21:30 Triple Phos Crystals MANY /hpf (FEW) 09/15/16 21:30 Urine Bacteria MODERATE /hpf (NONE SEEN) 09/15/16 21:30 Urine Yeast FEW /hpf (NONE SEEN) H 09/15/16 21:30 Vancomycin Trough 20.0 ug/mL (-20) 09/18/16 08:00 Blood Type O POSITIVE 09/17/16 07:30 Antibody Screen NEGATIVE 09/17/16 07:30 Crossmatch See Detail 09/17/16 07:30 - Physical Exam Vitals and I&O: Vital Signs Temp 98.1 F 09/19/16 07:00 Pulse 76 09/19/16 14:09 Resp 18 09/19/16 07:00 BP 127/52 09/19/16 14:09 Pulse Ox 98 09/19/16 11:56 Intake & Output 09/18/16 09/19/16 09/19/16 18:59 06:59 18:59 Intake Total 100 882 102 Output Total 1100 Balance 100 -218 102 Intake: Intake, IV Amount 102 102 Amikacin 500 mg In 102 102 Dextrose 5% 100 ml @ 100 mls/hr IV Q12H [facility] Rx#: [id number] Oral 0 0 Tube Feeding 780 Other 100 Output: Urine 1100 Active Medications: Current Medications Acetaminophen (Tylenol 650mg/20.3ml Suspension) 650 mg GT Q4H PRN PRN Reason: Fever >101 Stop: 11/15/16 00:34 Last Admin: 09/19/16 14:10 Dose: 650 mg Albuterol/Ipratropium (Duoneb Neb) 3 ml HHN Q6HRT [facility] Stop: 11/15/16 12:59 Last Admin: 09/19/16 14:01 Dose: 3 ml Amlodipine Besylate (Norvasc) 10 mg GT DAILY [facility] Stop: 11/15/16 08:59 Last Admin: 09/19/16 09:54 Dose: 10 mg Ascorbic Acid (Vitamin C) 500 mg GT DAILY [facility] Stop: 11/15/16 08:59 Last Admin: 09/19/16 09:54 Dose: 500 mg Bisacodyl (Dulcolax 10 Mg Supp) 10 mg RC DAILY PRN PRN Reason: Constipation Stop: 11/15/16 00:34 Carbidopa/Levodopa (Sinemet 25mg-100 Mg) 1 tab GT BID [facility] Stop: 11/15/16 08:59 Last Admin: 09/19/16 09:54 Dose: 1 tab Chlorhexidine Gluconate (Peridex) 15 ml MM 0800,2000 [facility] Stop: 11/15/16 07:59 Last Admin: 09/19/16 08:00 Dose: 15 ml Clonidine HCl (Catapres) 0.1 mg GT Q4H PRN PRN Reason: SBP GREATER THAN 160 Stop: 11/15/16 00:34 Diltiazem HCl (Cardizem) 60 mg GT Q6HR [facility] Stop: 11/15/16 05:59 Last Admin: 09/19/16 11:24 Dose: 60 mg Docusate Sodium (Colace) 100 mg PO DAILY [facility] Stop: 11/15/16 08:59 Last Admin: 09/19/16 09:53 Dose: 100 mg Ferrous Sulfate (Iron) 330 mg PO DAILY [facility] Stop: 11/15/16 08:59 Last Admin: 09/19/16 09:54 Dose: 330 mg Finasteride (Proscar) 5 mg GT DAILY [facility] PRN Reason: Protocol Stop: 11/15/16 08:59 Last Admin: 09/19/16 09:53 Dose: 5 mg Furosemide (Lasix) 40 mg IVP BID [facility] Stop: 11/15/16 08:59 Last Admin: 09/19/16 09:53 Dose: 40 mg Heparin Sodium (Porcine) (Heparin) 5,000 units SUBQ Q12HR [facility] Stop: 11/15/16 08:59 Last Admin: 09/19/16 09:51 Dose: 5,000 units Hydralazine HCl (Apresoline) 50 mg GT TID [facility] Stop: 11/15/16 08:59 Last Admin: 09/19/16 14:09 Dose: 50 mg Amikacin Sulfate 500 mg/ (Dextrose) 102 mls @ 100 mls/hr IV Q12H [facility] Stop: 11/17/16 19:59 Last Infusion: 09/19/16 10:00 Dose: Infused Insulin Aspart (Novolog Insulin Sliding Scale) 0 units SUBQ Q6HR [facility] PRN Reason: Protocol Stop: 11/15/16 13:14 Last Admin: 09/19/16 11:24 Dose: Not Given Lactobacillus Rhamnosus (Culturelle) 1 each GT DAILY [facility] Stop: 11/15/16 08:59 Last Admin: 09/19/16 09:55 Dose: 1 each Levetiracetam (Keppra) 500 mg PO Q12H [facility] Stop: 11/15/16 00:34 Last Admin: 09/19/16 14:00 Dose: 500 mg Lorazepam (Ativan) 1 mg IVP Q6HR PRN; Protocol PRN Reason: Anxiety Stop: 11/15/16 03:31 Losartan Potassium (Cozaar) 50 mg GT BID [facility] Stop: 11/15/16 08:59 Last Admin: 09/19/16 09:55 Dose: 50 mg Miscellaneous (Amikacin Iv Per Pharmacy) 1 ea PRN PRN PRN Reason: PROTOCOL Stop: 11/17/16 15:21 Miscellaneous (Probiotic Screen) 1 ea PRN PRN PRN Reason: PROTOCOL Stop: 11/18/16 09:26 Morphine Sulfate (Morphine) 1 mg IVP Q4HR PRN PRN Reason: Pain (Moderate) Stop: 11/15/16 03:29 Morphine Sulfate (Morphine) 2 mg IVP Q4HR PRN PRN Reason: Pain (Severe) Stop: 11/15/16 03:33 Last Admin: 09/16/16 04:26 Dose: 2 mg Ondansetron HCl (Zofran) 4 mg IV Q4H PRN PRN Reason: Nausea / Vomiting Stop: 11/15/16 03:29 Senna (Senna) 17.2 mg GT HS [facility] Stop: 11/15/16 20:59 Last Admin: 09/18/16 20:56 Dose: 17.2 mg Sodium Chloride (Nacl Tab) 1 gm GT BID [facility] Stop: 11/15/16 08:59 Last Admin: 09/19/16 09:55 Dose: 1 gm Zinc Sulfate (Zinc Sulfate) 220 mg GT DAILY [facility] Stop: 11/15/16 08:59 Last Admin: 09/19/16 09:54 Dose: 220 mg General: no acute distress, well developed, well nourished HEENT: atraumatic, normocephalic, PERRLA, EOMI, other (swollenleft face and scalp) Neck: tracheostomy Cardiovascular: S1S2, regular Lungs: clear to auscultation bilaterally, clear to percussion Abdomen: soft, no tender Extremities: no cyanosis, no clubbing, no edema Neurological: awake, alert, oriented - Procedures Procedures: Procedures Procedure Code Date BLOOD TRANSFUSION SERVICE 34825 08/25/16 EGD ENDO MUCOSAL RESECTION 36328 08/25/16 EXCISION OF DUODENUM, ENDO, DIAGN [id number] 08/25/16 EXCISION OF STOMACH, ENDO, DIAGN [id number] 08/25/16 RESPIRATORY VENTILATION, 24-96 CONSECUTIVE HOURS [id number] 09/15/16 TRANSFUSE NONAUT RED BLOOD CELLS IN PERIPH VEIN, PERC [id number] 08/25/16 VENT MGMT INPAT INIT DAY 09/15/16 VENT MGMT INPAT SUBQ DAY 57611 09/15/16 Infectious Disease Assmt/Plan - Problem List Patient Problems: All Active Problems PENILE LACERATION/SKIN TEAR WITH EDEMA (Acute) Anemia (Acute) D64.9 H/O: CVA (cerebrovascular accident) (Acute) Z86.73 Respiratory failure after trauma (Acute) J95.821 Sacral decubitus ulcer, stage IV (Acute) L89.154 Status post gastrostomy tube placement, follow-up exam (Acute) Z09 Status post tracheostomy (Acute) Z93.0 UTI (urinary tract infection) (Acute) Ventilator dependent (Acute) Z99.11 ulcer beneath penis (Acute) - Assessment Assessment: IMPRESSION: 1. Sepsis. 2. Aspiration pneumonia. 3. Urinary tract infection. 4. Scalp skin cancer. 5. Vent-dependent respiratory failure. 6. History of cerebrovascular accident. 7. Dementia. 8. Hydrocephalous. RECOMMENDATIONS: Continue amikacin. Nutritional Asmnt/Malnutr-PDOC - Dietary Evaluation Malnutrition Findings (Please click <Entered> for more info): Nutritional Asmnt/Malnutrition Start: 09/16/16 11: 52 Text: Status: Complete Freq: Document 09/16/16 11:52 GSUN (Rec: 09/16/16 11:59 GSUN [email or web address]) Nutritional Asmnt/Malnutrition Patient General Information Nutritional Screening Consult Diagnosis ER: left lower lobe PNA, UTI, fluid overload, scrotal edema Pertinent Medical Hx/Surgical Hx ER: CVA/TIA, dementia, facial cancer, anemia, acute respiratory failure, hyperlipidemia, hypothyroidism , unspecified dementia, hydrocepalus Subjective Information 76 year old male from SNF. RD consult for Tai 11. Pt is non-verbal, trach on vent, resting with eyes closed. Observed no tube feeding at this time. Confirmed with RN, order for on at 12pm. 160lb past two adm at this hospital within this year, CBW 151lb on EMR, questionable weights, using IBW for calculations. Current Diet Order/ Nutrition Support Diabetisource 65ml/hr x 20hrs, 12pm on and 8am off Pertinent Medications Vitamin C, Colace, Iron, Lasix , Novolog, Culturelle, Morphine, Zofran, Zinc Sulfate Pertinent Labs 09/15: A1c 6.4H 09/16: glucose 145H Nutritional Hx/Data Height 1.73 m Height (Calculated Centimeters) 172.7 Current Weight (lbs) 68.492 kg Weight (Calculated Kilograms) 68.5 Weight (Calculated Grams) 46866.4 Usual body Weight (lbs) 160 [place] Body Weight 154 Weight Status Approriate GI Symptoms Cultural/Ethnic/Christianity Belief SNF order: Glucerna 1.2 at 65ml/hrs x 20hrs, on at 12pm and off at 8am, providing 1560kcal. 75ml water flush every 3hrs x 20hrs. Skin Integrity/Comment: Tai Poole. director of public works: decubitus pressure area left medial back Estimated Nutritional Goals Calories/Kcals/Kg IBW 154lb/70kg Kcals Calculated 1750-2100kcal (25-30kcal/kg) Protein g/kg: IBW Protein Calculated 70-91g (1-1.3g/kg) Fluid: ml 1750-2100ml (1ml/kcal) Nutritional Problem 1. Problem Problem Inadequate intake from enteral nutrition infusion related to Etiology estimated nutritional needs aeb Signs/Symptoms: current order 89% of lower end of estimated kcal needs using ideal body weight at 25kcal/ kg Intervention/Recommendation Comments 1. Recommend increasing tube feeding rate to Diabetisource at 75ml/hr x 20hrs, providing 1800kcal and 90g to provide to meet 100% of lower end of estimated kcal and prot needs. Expected Outcomes/Goals Expected Outcomes/Goals 1. Pt to meet 100% of estimated nutritional needs on tube feeding with tolerance.
--- NOTE | 2016-09-19 22:05 | Progress Notes ---
DATE: 09/19/2016 SUBJECTIVE: The patient was seen in ICU, lying in bed. The patient is a poor historian due to medical condition, otherwise, the patient appears to be in no acute distress. Condition is guarded at this time. OBJECTIVE: HEENT: Head is atraumatic with chronic swelling on the left side of the case. HEENT: Pupils are sluggish. NECK: Supple. No JVD. Positive with tracheostomy. CARDIOVASCULAR: S1 and S2 heard without murmur. PULMONARY: Mild inspiratory wheezing with scattered rhonchi. GASTROINTESTINAL: Soft and nontender. The patient has a gastrostomy tube. GENITOURINARY: García catheter present. Scrotal edema noted. MUSCULOSKELETAL: Bilateral lower extremity, no edema. No clubbing noted. ASSESSMENT: 1. Congestive heart failure. 2. Chronic respiratory failure, ventilator dependent. 3. History of cerebrovascular accident. 4. Hyperlipidemia. 5. Dementia. 6. Dysphagia. 7. Anemia. 8. Hydrocephalus. 9. Hypothyroidism. 10. Pneumonia. 11. Sepsis. 12. Cellulitis of the scrotum. PLAN: We will check the patient's CBC for today. If hemoglobin is less than 7, to transfuse 2 units of packed RBC. We will follow up with ID doctor for antibiotic management. We will follow up with the financial reporting director for monitoring of the respiratory failure. JOB# [id number]
[2016-09-20] MEDS: Levetiracetam 500 mg/5mL 5mL UDC PO SCH ×2 (00:11→13:09)
[2016-09-20] MEDS: Diltiazem 30 mg Tab GT SCH ×4 (00:11→17:38)
[2016-09-20] MEDS: INSULIN ASPART SLIDING SCALE 100 UNITS/ML UNIT SUBQ SCH ×4 (00:11→17:37)
[2016-09-20] MEDS: Albuterol/Ipratropium Neb 3 ML AERS HHN SCH ×4 (01:21→19:01)
[2016-09-20 07:34] LABS: MEAN CELL VOLUME 80.9 fl (80-99); MEAN CORPUSCULAR HGB CONC 33.4 pg (28.0-36.0); MEAN PLATELET VOLUME 7.5 fl; PLATELET COUNT 223 Th/cmm (150-400); RED BLOOD COUNT 2.74 Mil/cmm (3.80-5.80); RED CELL DISTRIBUTION WIDTH 17.2 % (11.5-20.0); WHITE BLOOD COUNT 11.5 Th/cmm (4.8-10.8)
[2016-09-20] MEDS: Chlorhexidine Gluconate 0.12% 15mL Mouthwash MM SCH ×2 (08:00→19:35)
[2016-09-20 08:06] LABS: HEMATOCRIT 22.1 % (39.0-49.0); HEMOGLOBIN 7.4 gm/dL (12.6-17.4)
[2016-09-20 08:09] LABS: ALB/GLOB RATIO 0.8 (1.0-1.8); ALKALINE PHOSPHATASE 161 U/L (34-104); ANION GAP 9.3 (7.0-16.0); BILIRUBIN,TOTAL 0.5 mg/dL (0.3-1.0); BUN - UREA NITROGEN 28 mg/dL (7-25); CALCIUM SERUM 9.2 mg/dL (8.6-10.3); CARBON DIOXIDE 33.5 mEq/L (21.0-31.0); CHLORIDE 102 mEq/L (98-107); CREATININE - SERUM 0.7 mg/dL (0.7-1.3); GLUCOSE 144 mg/dL (70-105); POTASSIUM SERUM 3.8 mEq/L (3.5-5.1); SGOT 15 U/L (13-39); SGPT/ALT 12 U/L (7-52); SODIUM SERUM 141 mEq/L (136-145)
[2016-09-20] MEDS: Ferrous Sulfate 300 MG/5 ML UDC PO SCH (09:22)
[2016-09-20] MEDS: Ascorbic Acid 500 mg/5 mL UDC GT SCH (09:22)
[2016-09-20] MEDS: Lactobacillus Rhamnosus 10 Billion CFU Capsule GT SCH (09:22)
[2016-09-20] MEDS: Venelex 60gm Tube TP SCH (09:22)
[2016-09-20] MEDS: Multivitamin w/ Minerals Tab GT SCH (09:23)
--- NOTE | 2016-09-20 11:03 | General Progress Note ---
Subjective - Review of Systems Events since last encounter: awake, alert Objective - Results Result Diagrams: 09/20/16 07:20 09/20/16 07:20 Recent Labs: Laboratory Last Values WBC 11.5 Th/cmm (4.8-10.8) H 09/20/16 07:20 RBC 2.74 Mil/cmm (3.80-5.80) L 09/20/16 07:20 Hgb 7.4 gm/dL (12.6-17.4) L* 09/20/16 07:20 Hct 22.1 % (39.0-49.0) L* 09/20/16 07:20 MCV 80.9 fl (80-99) 09/20/16 07:20 MCH 27.0 pg (27.0-31.0) 09/20/16 07:20 MCHC Differential 33.4 pg (28.0-36.0) 09/20/16 07:20 RDW 17.2 % (11.5-20.0) 09/20/16 07:20 Plt Count 223 Th/cmm (150-400) 09/20/16 07:20 MPV 7.5 fl 09/20/16 07:20 Neutrophils % 85.7 % (40.0-80.0) H 09/15/16 19:30 Band Neutrophils % 2 % (0-10) 09/18/16 04:27 Lymphocytes % 5.0 % (20.0-50.0) L 09/15/16 19:30 Monocytes % 6.2 % (2.0-10.0) 09/15/16 19:30 Eosinophils % 2.3 % (0.0-5.0) 09/15/16 19:30 Basophils % 0.8 % (0.0-2.0) 09/15/16 19:30 Neutrophils (Manual) 70 % (40-80) 09/19/16 10:15 Lymphocytes 9 % (20-50) L 09/19/16 10:15 Monocytes 7 % (2-10) 09/19/16 10:15 Eosinophils 12 % (0-5) H 09/19/16 10:15 Basophils 2 % (0-3) 09/19/16 10:15 Hypochromia 1+ 09/17/16 04:42 Platelet Estimate ADEQUATE (NORMAL) 09/19/16 10:15 Platelet Morphology NORMAL (NORMAL) 09/19/16 10:15 Polychromasia 1+ 09/19/16 10:15 Anisocytosis 1+ 09/19/16 10:15 RBC Morph Micro Appear ABNORMAL (NORMAL) 09/19/16 10:15 Total Retics Counted 8.5 % (0.5-1.5) H 09/18/16 04:27 Absolute Retic 232.9 Th/cmm 09/18/16 04:27 Corrected Retic Count 4.3 % (0.5-1.5) H 09/18/16 04:27 PT 9.9 SECONDS (9.5-11.5) 09/15/16 19:30 INR 0.95 (0.5-1.4) 09/15/16 19:30 PTT (Actin FS) 29.4 SECONDS (26.0-38.0) 09/15/16 19:30 Specimen Source Arterial 09/17/16 15:10 Sample Site Left Radial 09/17/16 15:10 pH 7.52 (7.35-7.45) H 09/17/16 15:10 pCO2 46.0 mmHg (35.0-45.0) H 09/17/16 15:10 pO2 56.0 mmHg (80.0-100.0) L 09/17/16 15:10 HCO3 35.0 mEq/L (20.0-26.0) H 09/17/16 15:10 Base Excess 13.1 mEq/L (-3.0-3.0) H 09/17/16 15:10 O2 Saturation 92.0 % (92.0-100.0) 09/17/16 15:10 Gary Test YES 09/17/16 15:10 Vent Rate 16 09/17/16 15:10 Inspired O2 50 09/17/16 15:10 Tidal Volume 400 09/17/16 15:10 PEEP 5 09/17/16 15:10 Pressure (ins/psv/peep) NA 09/17/16 15:10 Critical Value E.VAZQUEZ 09/17/16 15:10 Sodium 141 mEq/L (136-145) 09/20/16 07:20 Potassium 3.8 mEq/L (3.5-5.1) 09/20/16 07:20 Chloride 102 mEq/L (98-107) 09/20/16 07:20 Carbon Dioxide 33.5 mEq/L (21.0-31.0) H 09/20/16 07:20 Anion Gap 9.3 (7.0-16.0) 09/20/16 07:20 BUN 28 mg/dL (7-25) H 09/20/16 07:20 Creatinine 0.7 mg/dL (0.7-1.3) 09/20/16 07:20 Est GFR ( Amer) TNP 09/20/16 07:20 Est GFR (Non-Af Amer) TNP 09/20/16 07:20 BUN/Creatinine Ratio 40.0 09/20/16 07:20 Glucose 144 mg/dL (70-105) H 09/20/16 07:20 POC Glucose 132 MG/DL (70 - 105) H 09/20/16 05:16 Hemoglobin A1c % 6.4 % (4.0-6.0) H 09/15/16 20:30 Whole Bld Lactic Acid 0.94 mmol/L (0.60-1.99) 09/15/16 19:30 Calcium 9.2 mg/dL (8.6-10.3) 09/20/16 07:20 Iron 30 ug/dL (38-169) L 09/18/16 04:27 TIBC 212 ug/dL (250-450) L 09/18/16 04:27 Iron Saturation 14 % (15-55) L 09/18/16 04:27 Unsaturated IBC 182 ug/dL (111-343) 09/18/16 04:27 Ferritin 718 ng/mL (30-400) H 09/18/16 04:27 Total Bilirubin 0.5 mg/dL (0.3-1.0) 09/20/16 07:20 AST 15 U/L (13-39) 09/20/16 07:20 ALT 12 U/L (7-52) 09/20/16 07:20 Alkaline Phosphatase 161 U/L (34-104) H 09/20/16 07:20 Creatine Kinase 24 U/L (30-223) L 09/16/16 11:40 Troponin I 0.02 ng/mL (0.01-0.05) 09/16/16 11:40 B-Natriuretic Peptide 522.0 pg/mL (5.0-100.0) H 09/17/16 04:42 Total Protein 7.0 gm/dL (6.0-8.3) 09/20/16 07:20 Albumin 3.0 gm/dL (4.2-5.5) L 09/20/16 07:20 Globulin 4.0 gm/dL 09/20/16 07:20 Albumin/Globulin Ratio 0.8 (1.0-1.8) L 09/20/16 07:20 Vitamin B12 1025 pg/mL (211-946) H 09/18/16 04:27 Folic Acid >20.0 ng/mL (>3.0) 09/18/16 04:27 Urine Source [place] 09/15/16 21:30 Urine Color YELLOW 09/15/16 21:30 Urine Clarity CLOUDY (CLEAR) 09/15/16 21:30 Urine pH 8.5 09/15/16 21:30 Ur Specific [place] 1.015 (1.005-1.030) 09/15/16 21:30 Urine Protein 30 mg/dL (NEGATIVE) H 09/15/16 21:30 Urine Glucose (UA) NEGATIVE mg/dL (NEGATIVE) 09/15/16 21:30 Urine Ketones NEGATIVE mg/dL (NEGATIVE) 09/15/16 21:30 Urine Blood TRACE (NEGATIVE) 09/15/16 21:30 Urine Nitrate NEGATIVE (NEGATIVE) 09/15/16 21:30 Urine Bilirubin NEGATIVE (NEGATIVE) 09/15/16 21:30 Urine Urobilinogen 0.2 E.U./dL (0.2 - 1.0) 09/15/16 21:30 Ur Leukocyte Esterase MODERATE (NEGATIVE) H 09/15/16 21:30 Urine RBC 2-5 /hpf (0-5) H 09/15/16 21:30 Urine WBC 25-50 /hpf (0-5) H 09/15/16 21:30 Ur Epithelial Cells MODERATE /lpf (FEW) 09/15/16 21:30 Triple Phos Crystals MANY /hpf (FEW) 09/15/16 21:30 Urine Bacteria MODERATE /hpf (NONE SEEN) 09/15/16 21:30 Urine Yeast FEW /hpf (NONE SEEN) H 09/15/16 21:30 Vancomycin Trough 20.0 ug/mL (10-20) 09/18/16 08:00 Blood Type O POSITIVE 09/17/16 07:30 Antibody Screen NEGATIVE 09/17/16 07:30 Crossmatch See Detail 09/17/16 07:30 - Physical Exam Vitals and I&O: Vital Signs Temp 99.5 F 09/20/16 04:00 Pulse 78 09/20/16 09:40 Resp 22 09/20/16 06:00 BP 132/84 09/20/16 09:22 Pulse Ox 99 09/20/16 09:40 Intake & Output 09/19/16 09/20/16 09/20/16 18:59 06:59 18:59 Intake Total 1222 882 Output Total 1200 700 Balance 22 182 Intake: Intake, IV Amount 102 102 Amikacin 500 mg In 102 102 Dextrose 5% 100 ml @ 100 mls/hr IV Q12H [facility] Rx#: [id number] Oral 0 Tube Feeding 520 780 Other 600 Output: Urine 1200 700 Other: # Bowel Movements 0 1 Stool Characteristics Soft Formed Brown Active Medications: Current Medications Acetaminophen (Tylenol 650mg/20.3ml Suspension) 650 mg GT Q4H PRN PRN Reason: Fever >101 Stop: 11/15/16 00:34 Last Admin: 09/19/16 14:10 Dose: 650 mg Albuterol/Ipratropium (Duoneb Neb) 3 ml HHN Q6HRT [facility] Stop: 11/15/16 12:59 Last Admin: 09/20/16 07:35 Dose: 3 ml Amlodipine Besylate (Norvasc) 10 mg GT DAILY [facility] Stop: 11/15/16 08:59 Last Admin: 09/20/16 09:18 Dose: 10 mg Ascorbic Acid (Vitamin C) 500 mg GT DAILY [facility] Stop: 11/15/16 08:59 Last Admin: 09/20/16 09:22 Dose: 500 mg Bisacodyl (Dulcolax 10 Mg Supp) 10 mg RC DAILY PRN PRN Reason: Constipation Stop: 11/15/16 00:34 Carbidopa/Levodopa (Sinemet 25mg-100 Mg) 1 tab GT BID [facility] Stop: 11/15/16 08:59 Last Admin: 09/20/16 09:22 Dose: 1 tab Chlorhexidine Gluconate (Peridex) 15 ml MM 0800,1999 [facility] Stop: 11/15/16 07:59 Last Admin: 09/20/16 08:00 Dose: 15 ml Clonidine HCl (Catapres) 0.1 mg GT Q4H PRN PRN Reason: SBP GREATER THAN 160 Stop: 11/15/16 00:34 Diltiazem HCl (Cardizem) 60 mg GT Q6HR [facility] Stop: 11/15/16 05:59 Last Admin: 09/20/16 06:12 Dose: Not Given Docusate Sodium (Colace) 100 mg PO DAILY [facility] Stop: 11/15/16 08:59 Last Admin: 09/20/16 09:22 Dose: 100 mg Ferrous Sulfate (Iron) 330 mg PO DAILY [facility] Stop: 11/15/16 08:59 Last Admin: 09/20/16 09:22 Dose: 330 mg Finasteride (Proscar) 5 mg GT DAILY [facility] PRN Reason: Protocol Stop: 11/15/16 08:59 Last Admin: 09/20/16 09:22 Dose: 5 mg Furosemide (Lasix) 40 mg IVP BID [facility] Stop: 11/15/16 08:59 Last Admin: 09/20/16 09:19 Dose: 40 mg Heparin Sodium (Porcine) (Heparin) 5,000 units SUBQ Q12HR [facility] Stop: 11/15/16 08:59 Last Admin: 09/20/16 09:20 Dose: 5,000 units Hydralazine HCl (Apresoline) 50 mg GT TID [facility] Stop: 11/15/16 08:59 Last Admin: 09/20/16 09:19 Dose: 50 mg Amikacin Sulfate 500 mg/ (Dextrose) 102 mls @ 100 mls/hr IV Q12H [facility] Stop: 11/17/16 19:59 Last Admin: 09/20/16 08:00 Dose: 100 mls/hr Insulin Aspart (Novolog Insulin Sliding Scale) 0 units SUBQ Q6HR [facility] PRN Reason: Protocol Stop: 11/15/16 13:14 Last Admin: 09/20/16 06:11 Dose: Not Given Lactobacillus Rhamnosus (Culturelle) 1 each GT DAILY [facility] Stop: 11/15/16 08:59 Last Admin: 09/20/16 09:22 Dose: 1 each Levetiracetam (Keppra) 500 mg PO Q12H [facility] Stop: 11/15/16 00:34 Last Admin: 09/20/16 00:11 Dose: 500 mg Lorazepam (Ativan) 1 mg IVP Q6HR PRN; Protocol PRN Reason: Anxiety Stop: 11/15/16 03:31 Losartan Potassium (Cozaar) 50 mg GT BID [facility] Stop: 11/15/16 08:59 Last Admin: 09/20/16 09:22 Dose: 50 mg Miscellaneous (Amikacin Iv Per Pharmacy) 1 ea PRN PRN PRN Reason: PROTOCOL Stop: 11/17/16 15:21 Miscellaneous (Probiotic Screen) 1 ea PRN PRN PRN Reason: PROTOCOL Stop: 11/18/16 09:26 Morphine Sulfate (Morphine) 1 mg IVP Q4HR PRN PRN Reason: Pain (Moderate) Stop: 11/15/16 03:29 Morphine Sulfate (Morphine) 2 mg IVP Q4HR PRN PRN Reason: Pain (Severe) Stop: 11/15/16 03:33 Last Admin: 09/16/16 04:26 Dose: 2 mg Ondansetron HCl (Zofran) 4 mg IV Q4H PRN PRN Reason: Nausea / Vomiting Stop: 11/15/16 03:29 Senna (Senna) 17.2 mg GT HS [facility] Stop: 11/15/16 20:59 Last Admin: 09/19/16 20:27 Dose: 17.2 mg Sodium Chloride (Nacl Tab) 1 gm GT BID [facility] Stop: 11/15/16 08:59 Last Admin: 09/20/16 09:23 Dose: 1 gm Zinc Sulfate (Zinc Sulfate) 220 mg GT DAILY [facility] Stop: 11/15/16 08:59 Last Admin: 09/20/16 09:23 Dose: 220 mg - Procedures Procedures: Procedures Procedure Code Date BLOOD TRANSFUSION SERVICE 84517 08/25/16 EGD ENDO MUCOSAL RESECTION 15386 08/25/16 EXCISION OF DUODENUM, ENDO, DIAGN [id number] 08/25/16 EXCISION OF STOMACH, ENDO, DIAGN [id number] 08/25/16 RESPIRATORY VENTILATION, 24-96 CONSECUTIVE HOURS [id number] 09/15/16 TRANSFUSE NONAUT RED BLOOD CELLS IN PERIPH VEIN, PERC 95730O0 08/25/16 VENT MGMT INPAT INIT DAY 09/15/16 VENT MGMT INPAT SUBQ DAY 09/15/16 Assessment/Plan - Problem List Patient Problems: All Active Problems PENILE LACERATION/SKIN TEAR WITH EDEMA (Acute) Anemia (Acute) D64.9 H/O: CVA (cerebrovascular accident) (Acute) Z86.73 Respiratory failure after trauma (Acute) J95.821 Sacral decubitus ulcer, stage IV (Acute) L89.154 Status post gastrostomy tube placement, follow-up exam (Acute) Z09 Status post tracheostomy (Acute) Z93.0 UTI (urinary tract infection) (Acute) Ventilator dependent (Acute) Z99.11 ulcer beneath penis (Acute) Nutritional Asmnt/Malnutr-PDOC - Dietary Evaluation Malnutrition Findings (Please click <Entered> for more info): Nutritional Asmnt/Malnutrition Start: 09/16/16 11: 52 Text: Status: Complete Freq: Document 09/16/16 11:52 GSUN (Rec: 09/16/16 11:59 GSUN [email or web address]) Nutritional Asmnt/Malnutrition Patient General Information Nutritional Screening Consult Diagnosis ER: left lower lobe PNA, UTI, fluid overload, scrotal edema Pertinent Medical Hx/Surgical Hx ER: CVA/TIA, dementia, facial cancer, anemia, acute respiratory failure, hyperlipidemia, hypothyroidism , unspecified dementia, hydrocepalus Subjective Information 76 year old male from SNF. RD consult for Tai 11. Pt is non-verbal, trach on vent, resting with eyes closed. Observed no tube feeding at this time. Confirmed with RN, order for on at 12pm. 160lb past two adm at this hospital within this year, CBW 151lb on EMR, questionable weights, using IBW for calculations. Current Diet Order/ Nutrition Support Diabetisource 65ml/hr x 20hrs, 12pm on and 8am off Pertinent Medications Vitamin C, Colace, Iron, Lasix , Novolog, Culturelle, Morphine, Zofran, Zinc Sulfate Pertinent Labs 09/15: A1c 6.4H 09/16: glucose 145H Nutritional Hx/Data Height 1.73 m Height (Calculated Centimeters) 172.7 Current Weight (lbs) 68.492 kg Weight (Calculated Kilograms) 68.5 Weight (Calculated Grams) 71715.4 Usual body Weight (lbs) 160 [place] Body Weight 154 Weight Status Approriate GI Symptoms Cultural/Ethnic/[employer] Belief SNF order: Glucerna 1.2 at 65ml/hrs x 20hrs, on at 12pm and off at 8am, providing 1560kcal. 75ml water flush every 3hrs x 20hrs. Skin Integrity/Comment: Tai 11. life cycle assessment analyst: decubitus pressure area left medial back Estimated Nutritional Goals Calories/Kcals/Kg IBW 154lb/70kg Kcals Calculated 1750-2100kcal (25-30kcal/kg) Protein g/kg: IBW Protein Calculated 70-91g (1-1.3g/kg) Fluid: ml 1750-2100ml (1ml/kcal) Nutritional Problem 1. Problem Problem Inadequate intake from enteral nutrition infusion related to Etiology estimated nutritional needs aeb Signs/Symptoms: current order 89% of lower end of estimated kcal needs using ideal body weight at 25kcal/ kg Intervention/Recommendation Comments 1. Recommend increasing tube feeding rate to Diabetisource at 75ml/hr x 20hrs, providing 1800kcal and 90g to provide to meet 100% of lower end of estimated kcal and prot needs. Expected Outcomes/Goals Expected Outcomes/Goals 1. Pt to meet 100% of estimated nutritional needs on tube feeding with tolerance.
[2016-09-20 11:57] LABS: BAND NEUTROPHILE 3 % (0-10); BASOPHIL 1 % (0-3); EOSINOPHIL 10 % (0-5); NEUTROPHILS 57 % (40-80); PLATELET ESTIMATE ADEQUATE (NORMAL); PLATELET MORPHOLOGY NORMAL (NORMAL); POLYCHROMASIA 1+; TOTAL CELLS COUNTED 100
[2016-09-21] MEDS: Diltiazem 30 mg Tab GT SCH ×4 (00:01→17:26)
[2016-09-21] MEDS: INSULIN ASPART SLIDING SCALE 100 UNITS/ML UNIT SUBQ SCH ×4 (00:02→17:25)
[2016-09-21] MEDS: Levetiracetam 500 mg/5mL 5mL UDC PO SCH ×2 (00:02→12:42)
[2016-09-21] MEDS: Albuterol/Ipratropium Neb 3 ML AERS HHN SCH ×4 (01:43→19:02)
[2016-09-21 05:17] LABS: % EOSINOPHILS 7.1 % (0.0-5.0); % LYMPHOCYTES 16.1 % (20.0-50.0); % MONOCYTES 7.2 % (2.0-10.0); % NEUTROPHILS 69.6 % (40.0-80.0); MEAN CORPUSCULAR HEMOGLOBIN 28.3 pg (27.0-31.0); MEAN CORPUSCULAR HGB CONC 33.7 pg (28.0-36.0); MEAN PLATELET VOLUME 8.2 fl; PLATELET COUNT 204 Th/cmm (150-400); RED BLOOD COUNT 3.67 Mil/cmm (3.80-5.80); RED CELL DISTRIBUTION WIDTH 15.8 % (11.5-20.0); WHITE BLOOD COUNT 11.4 Th/cmm (4.8-10.8)
[2016-09-21 05:26] LABS: HEMATOCRIT 30.8 % (39.0-49.0); HEMOGLOBIN 10.4 gm/dL (12.6-17.4)
[2016-09-21 05:34] LABS: ALB/GLOB RATIO 0.8 (1.0-1.8); ALKALINE PHOSPHATASE 187 U/L (34-104); ANION GAP 9.8 (7.0-16.0); BILIRUBIN,TOTAL 0.7 mg/dL (0.3-1.0); BUN - UREA NITROGEN 27 mg/dL (7-25); CALCIUM SERUM 9.3 mg/dL (8.6-10.3); CARBON DIOXIDE 33.9 mEq/L (21.0-31.0); CHLORIDE 100 mEq/L (98-107); CREATININE - SERUM 0.6 mg/dL (0.7-1.3); GLUCOSE 146 mg/dL (70-105); POTASSIUM SERUM 3.7 mEq/L (3.5-5.1); SGOT 15 U/L (13-39); SGPT/ALT 11 U/L (7-52); SODIUM SERUM 140 mEq/L (136-145)
[2016-09-21] MEDS: Multivitamin w/ Minerals Tab GT SCH (08:20)
[2016-09-21] MEDS: Ascorbic Acid 500 mg/5 mL UDC GT SCH (08:20)
[2016-09-21] MEDS: Lactobacillus Rhamnosus 10 Billion CFU Capsule GT SCH (08:21)
[2016-09-21] MEDS: Ferrous Sulfate 300 MG/5 ML UDC PO SCH (08:21)
[2016-09-21] MEDS: Chlorhexidine Gluconate 0.12% 15mL Mouthwash MM SCH (08:28)
[2016-09-21] MEDS: Venelex 60gm Tube TP SCH (08:28)
--- NOTE | 2016-09-21 08:43 | Diagnostic Imaging Report ---
Portable chest x-ray HISTORY: Shortness of breath Compared to prior exam of 09/18/2016, the heart appears enlarged. Hazy bilateral infiltrates. There does appear to be a degree of pulmonary vascular redistribution consistent cardiac, facial. Evidence for small right pleural effusion. IMPRESSION: Cardiomegaly with hazy bilateral infiltrates and small effusions. Findings are suggestive of congestive heart failure. Underlying pneumonia cannot be excluded. Clinical correlation is needed.
--- NOTE | 2016-09-21 09:47 | Infectious Disease Prog Note ---
Infectious Disease Subjective - Review of Systems Service Date: 09/21/16 Subjective: No change, there is no fever, on ventilator. Infectious Disease Objective - Results Result Diagrams: 09/21/16 04:08 09/21/16 04:08 Recent Labs: Laboratory Last Values WBC 11.4 Th/cmm (4.8-10.8) H 09/21/16 04:08 RBC 3.67 Mil/cmm (3.80-5.80) L 09/21/16 04:08 Hgb 10.4 gm/dL (12.6-17.4) L D 09/21/16 04:08 Hct 30.8 % (39.0-49.0) L D 09/21/16 04:08 MCV 84.0 fl (80-99) 09/21/16 04:08 MCH 28.3 pg (27.0-31.0) 09/21/16 04:08 MCHC Differential 33.7 pg (28.0-36.0) 09/21/16 04:08 RDW 15.8 % (11.5-20.0) 09/21/16 04:08 Plt Count 204 Th/cmm (150-400) 09/21/16 04:08 MPV 8.2 fl 09/21/16 04:08 Neutrophils % 69.6 % (40.0-80.0) 09/21/16 04:08 Band Neutrophils % 3 % (0-10) 09/20/16 07:20 Lymphocytes % 16.1 % (20.0-50.0) L 09/21/16 04:08 Monocytes % 7.2 % (2.0-10.0) 09/21/16 04:08 Eosinophils % 7.1 % (0.0-5.0) H 09/21/16 04:08 Basophils % 0.0 % (0.0-2.0) 09/21/16 04:08 Neutrophils (Manual) 57 % (40-80) 09/20/16 07:20 Lymphocytes 18 % (20-50) L 09/20/16 07:20 Monocytes 11 % (2-10) H 09/20/16 07:20 Eosinophils 10 % (0-5) H 09/20/16 07:20 Basophils 1 % (0-3) 09/20/16 07:20 Hypochromia 1+ 04/20/17 04:42 Platelet Estimate ADEQUATE (NORMAL) 09/20/16 07:20 Platelet Morphology NORMAL (NORMAL) 09/20/16 07:20 Polychromasia 1+ 09/20/16 07:20 Anisocytosis 1+ 09/19/16 10:15 RBC Morph Micro Appear ABNORMAL (NORMAL) 09/20/16 07:20 Total Retics Counted 8.5 % (0.5-1.5) H 09/18/16 04:27 Absolute Retic 232.9 Th/cmm 09/18/16 04:27 Corrected Retic Count 4.3 % (0.5-1.5) H 09/18/16 04:27 Haptoglobin 296 mg/dL (34-200) H 09/18/16 04:27 PT 9.9 SECONDS (9.5-11.5) 09/15/16 19:30 INR 0.95 (0.5-1.4) 09/15/16 19:30 PTT (Actin FS) 29.4 SECONDS (26.0-38.0) 09/15/16 19:30 Specimen Source Arterial 09/17/16 15:10 Sample Site Left Radial 09/17/16 15:10 pH 7.52 (7.35-7.45) H 09/17/16 15:10 pCO2 46.0 mmHg (35.0-45.0) H 09/17/16 15:10 pO2 56.0 mmHg (80.0-100.0) L 09/17/16 15:10 HCO3 35.0 mEq/L (20.0-26.0) H 09/17/16 15:10 Base Excess 13.1 mEq/L (-3.0-3.0) H 09/17/16 15:10 O2 Saturation 92.0 % (92.0-100.0) 09/17/16 15:10 Gary Test YES 09/17/16 15:10 Vent Rate 16 09/17/16 15:10 Inspired O2 50 09/17/16 15:10 Tidal Volume 400 09/17/16 15:10 PEEP 5 09/17/16 15:10 Pressure (ins/psv/peep) NA 09/17/16 15:10 Critical Value E.[email or web address] 09/17/16 15:10 Sodium 140 mEq/L (136-145) 09/21/16 04:08 Potassium 3.7 mEq/L (3.5-5.1) 09/21/16 04:08 Chloride 100 mEq/L (98-107) 09/21/16 04:08 Carbon Dioxide 33.9 mEq/L (21.0-31.0) H 09/21/16 04:08 Anion Gap 9.8 (7.0-16.0) 09/21/16 04:08 BUN 27 mg/dL (7-25) H 09/21/16 04:08 Creatinine 0.6 mg/dL (0.7-1.3) L 09/21/16 04:08 Est GFR ( Amer) TNP 09/21/16 04:08 Est GFR (Non-Af Amer) TNP 09/21/16 04:08 BUN/Creatinine Ratio 45.0 09/21/16 04:08 Glucose 146 mg/dL (70-105) H 09/21/16 04:08 POC Glucose 149 MG/DL (70 - 105) H 09/20/16 23:30 Hemoglobin A1c % 6.4 % (4.0-6.0) H 09/15/16 20:30 Whole Bld Lactic Acid 0.94 mmol/L (0.60-1.99) 09/15/16 19:30 Calcium 9.3 mg/dL (8.6-10.3) 09/21/16 04:08 Iron 30 ug/dL (38-169) L 09/18/16 04:27 TIBC 212 ug/dL (250-450) L 09/18/16 04:27 Iron Saturation 14 % (15-55) L 09/18/16 04:27 Unsaturated IBC 182 ug/dL (111-343) 09/18/16 04:27 Ferritin 718 ng/mL (30-400) H 09/18/16 04:27 Total Bilirubin 0.7 mg/dL (0.3-1.0) 09/21/16 04:08 AST 15 U/L (13-39) 09/21/16 04:08 ALT 11 U/L (7-52) 09/21/16 04:08 Alkaline Phosphatase 187 U/L (34-104) H 09/21/16 04:08 Creatine Kinase 24 U/L (30-223) L 09/16/16 11:40 Troponin I 0.02 ng/mL (0.01-0.05) 09/16/16 11:40 B-Natriuretic Peptide 522.0 pg/mL (5.0-100.0) H 09/17/16 04:42 Total Protein 7.6 gm/dL (6.0-8.3) 09/21/16 04:08 Albumin 3.3 gm/dL (4.2-5.5) L 09/21/16 04:08 Globulin 4.3 gm/dL 09/21/16 04:08 Albumin/Globulin Ratio 0.8 (1.0-1.8) L 09/21/16 04:08 Vitamin B12 1025 pg/mL (211-946) H 09/18/16 04:27 Folic Acid >20.0 ng/mL (>3.0) 09/18/16 04:27 Urine Source [place] 09/15/16 21:30 Urine Color YELLOW 09/15/16 21:30 Urine Clarity CLOUDY (CLEAR) 09/15/16 21:30 Urine pH 8.5 09/15/16 21:30 Ur Specific [place] 1.015 (1.005-1.030) 09/15/16 21:30 Urine Protein 30 mg/dL (NEGATIVE) H 09/15/16 21:30 Urine Glucose (UA) NEGATIVE mg/dL (NEGATIVE) 09/15/16 21:30 Urine Ketones NEGATIVE mg/dL (NEGATIVE) 09/15/16 21:30 Urine Blood TRACE (NEGATIVE) 09/15/16 21:30 Urine Nitrate NEGATIVE (NEGATIVE) 09/15/16 21:30 Urine Bilirubin NEGATIVE (NEGATIVE) 09/15/16 21:30 Urine Urobilinogen 0.2 E.U./dL (0.2 - 1.0) 09/15/16 21:30 Ur Leukocyte Esterase MODERATE (NEGATIVE) H 09/15/16 21:30 Urine RBC 2-5 /hpf (0-5) H 09/15/16 21:30 Urine WBC 25-50 /hpf (0-5) H 09/15/16 21:30 Ur Epithelial Cells MODERATE /lpf (FEW) 09/15/16 21:30 Triple Phos Crystals MANY /hpf (FEW) 09/15/16 21:30 Urine Bacteria MODERATE /hpf (NONE SEEN) 09/15/16 21:30 Urine Yeast FEW /hpf (NONE SEEN) H 09/15/16 21:30 Vancomycin Trough 20.0 ug/mL (10-20) 09/18/16 08:00 Blood Type O POSITIVE 09/20/16 15:55 Antibody Screen NEGATIVE 09/20/16 15:55 Crossmatch See Detail 09/20/16 15:55 - Physical Exam Vitals and I&O: Vital Signs Temp 98.3 F 09/21/16 04:00 Pulse 82 09/21/16 09:37 Resp 18 09/21/16 06:00 BP 144/57 09/21/16 08:23 Pulse Ox 91 09/21/16 09:37 Intake & Output 09/20/16 09/21/16 09/21/16 18:59 06:59 18:59 Intake Total 1157 1582 Output Total 1700 1001 Balance -543 581 Intake: Intake, IV Amount 102 102 Amikacin 500 mg In 102 102 Dextrose 5% 100 ml @ 100 mls/hr IV Q12H [facility] Rx#: [id number] Oral 0 Tube Feeding 605 780 Blood Product 500 Other 450 200 Output: Urine 1700 1000 Stool 1 Other: # Bowel Movements 0 Stool Characteristics Soft Soft Formed Formed Brown Brown Active Medications: Current Medications Acetaminophen (Tylenol 650mg/20.3ml Suspension) 650 mg GT Q4H PRN PRN Reason: Fever >101 Stop: 11/15/16 00:34 Last Admin: 09/20/16 20:36 Dose: 650 mg Albuterol/Ipratropium (Duoneb Neb) 3 ml HHN Q6HRT [facility] Stop: 11/15/16 12:59 Last Admin: 09/21/16 07:34 Dose: 3 ml Amlodipine Besylate (Norvasc) 10 mg GT DAILY [facility] Stop: 11/15/16 08:59 Last Admin: 09/21/16 08:22 Dose: 10 mg Ascorbic Acid (Vitamin C) 500 mg GT DAILY [facility] Stop: 11/15/16 08:59 Last Admin: 09/21/16 08:20 Dose: 500 mg Bisacodyl (Dulcolax 10 Mg Supp) 10 mg RC DAILY PRN PRN Reason: Constipation Stop: 11/15/16 00:34 Carbidopa/Levodopa (Sinemet 25mg-100 Mg) 1 tab GT BID [facility] Stop: 11/15/16 08:59 Last Admin: 09/21/16 08:20 Dose: 1 tab Chlorhexidine Gluconate (Peridex) 15 ml MM 0800,1999 [facility] Stop: 11/15/16 07:59 Last Admin: 09/21/16 08:28 Dose: 15 ml Clonidine HCl (Catapres) 0.1 mg GT Q4H PRN PRN Reason: SBP GREATER THAN 160 Stop: 11/15/16 00:34 Diltiazem HCl (Cardizem) 30 mg GT Q6HR [facility] Stop: 11/20/16 05:59 Last Admin: 09/21/16 05:32 Dose: 30 mg Docusate Sodium (Colace) 100 mg PO DAILY [facility] Stop: 11/15/16 08:59 Last Admin: 09/21/16 08:20 Dose: 100 mg Ferrous Sulfate (Iron) 330 mg PO DAILY [facility] Stop: 11/15/16 08:59 Last Admin: 09/21/16 08:21 Dose: 330 mg Finasteride (Proscar) 5 mg GT DAILY [facility] PRN Reason: Protocol Stop: 11/15/16 08:59 Last Admin: 09/21/16 08:20 Dose: 5 mg Furosemide (Lasix) 40 mg IVP BID [facility] Stop: 11/15/16 08:59 Last Admin: 09/21/16 08:21 Dose: 40 mg Heparin Sodium (Porcine) (Heparin) 5,000 units SUBQ Q12HR [facility] Stop: 11/15/16 08:59 Last Admin: 09/21/16 08:23 Dose: 5,000 units Hydralazine HCl (Apresoline) 50 mg GT TID [facility] Stop: 11/15/16 08:59 Last Admin: 09/21/16 08:23 Dose: 50 mg Amikacin Sulfate 500 mg/ (Dextrose) 102 mls @ 100 mls/hr IV Q12H [facility] Stop: 11/17/16 19:59 Last Admin: 09/21/16 08:29 Dose: 100 mls/hr Insulin Aspart (Novolog Insulin Sliding Scale) 0 units SUBQ Q6HR [facility] PRN Reason: Protocol Stop: 11/15/16 13:14 Last Admin: 09/21/16 05:50 Dose: Not Given Lactobacillus Rhamnosus (Culturelle) 1 each GT DAILY [facility] Stop: 11/15/16 08:59 Last Admin: 09/21/16 08:21 Dose: 1 each Levetiracetam (Keppra) 500 mg PO Q12H [facility] Stop: 11/15/16 00:34 Last Admin: 09/21/16 00:02 Dose: 500 mg Lorazepam (Ativan) 1 mg IVP Q6HR PRN; Protocol PRN Reason: Anxiety Stop: 11/15/16 03:31 Losartan Potassium (Cozaar) 50 mg GT BID [facility] Stop: 11/15/16 08:59 Last Admin: 09/21/16 08:22 Dose: 50 mg Miscellaneous (Amikacin Iv Per Pharmacy) 1 ea PRN PRN PRN Reason: PROTOCOL Stop: 11/17/16 15:21 Miscellaneous (Probiotic Screen) 1 ea PRN PRN PRN Reason: PROTOCOL Stop: 11/18/16 09:26 Morphine Sulfate (Morphine) 1 mg IVP Q4HR PRN PRN Reason: Pain (Moderate) Stop: 11/15/16 03:29 Morphine Sulfate (Morphine) 2 mg IVP Q4HR PRN PRN Reason: Pain (Severe) Stop: 11/15/16 03:33 Last Admin: 09/16/16 04:26 Dose: 2 mg Ondansetron HCl (Zofran) 4 mg IV Q4H PRN PRN Reason: Nausea / Vomiting Stop: 11/15/16 03:29 Senna (Senna) 17.2 mg GT HS [facility] Stop: 11/15/16 20:59 Last Admin: 09/20/16 20:37 Dose: 17.2 mg Sodium Chloride (Nacl Tab) 1 gm GT BID [facility] Stop: 11/15/16 08:59 Last Admin: 09/21/16 08:20 Dose: 1 gm Zinc Sulfate (Zinc Sulfate) 220 mg GT DAILY [facility] Stop: 11/15/16 08:59 Last Admin: 09/21/16 08:21 Dose: 220 mg General: no acute distress, well developed, well nourished HEENT: PERRLA, EOMI, moist mucous membrane, other (swelling on the left scalp extending below to left jaw.) Neck: tracheostomy, no thyromegaly, no lymphadenopathy Cardiovascular: S1S2, regular Lungs: clear to auscultation bilaterally, clear to percussion Abdomen: soft, no tender, no distended Extremities: no cyanosis, no clubbing, no edema Neurological: awake, alert Skin: intact - Procedures Procedures: Procedures Procedure Code Date BLOOD TRANSFUSION SERVICE 39455 08/25/16 EGD ENDO MUCOSAL RESECTION 44691 08/25/16 EXCISION OF DUODENUM, ENDO, DIAGN [id number] 08/25/16 EXCISION OF STOMACH, ENDO, DIAGN [id number] 08/25/16 RESPIRATORY VENTILATION, 24-96 CONSECUTIVE HOURS [id number] 09/15/16 TRANSFUSE NONAUT RED BLOOD CELLS IN PERIPH VEIN, PERC 64320N7 08/25/16 VENT MGMT INPAT INIT DAY 83393 09/15/16 VENT MGMT INPAT SUBQ DAY 63269 09/15/16 Infectious Disease Assmt/Plan - Problem List Patient Problems: All Active Problems PENILE LACERATION/SKIN TEAR WITH EDEMA (Acute) Anemia (Acute) D64.9 H/O: CVA (cerebrovascular accident) (Acute) Z86.73 Respiratory failure after trauma (Acute) J95.821 Sacral decubitus ulcer, stage IV (Acute) L89.154 Status post gastrostomy tube placement, follow-up exam (Acute) Z09 Status post tracheostomy (Acute) Z93.0 UTI (urinary tract infection) (Acute) Ventilator dependent (Acute) Z99.11 ulcer beneath penis (Acute) - Assessment Assessment: IMPRESSION: 1. Sepsis. 2. Aspiration pneumonia. 3. Urinary tract infection. 4. Scalp skin cancer. 5. Vent-dependent respiratory failure. 6. History of cerebrovascular accident. 7. Dementia. 8. Hydrocephalous. RECOMMENDATIONS: Continue amikacin. Nutritional Asmnt/Malnutr-PDOC - Dietary Evaluation Malnutrition Findings (Please click <Entered> for more info): Nutritional Asmnt/Malnutrition Start: 09/16/16 11: 52 Text: Status: Complete Freq: Document 09/16/16 11:52 [id number] (Rec: 09/16/16 11:59 [id number] [id number]) Nutritional Asmnt/Malnutrition Patient General Information Nutritional Screening Consult Diagnosis ER: left lower lobe PNA, UTI, fluid overload, scrotal edema Pertinent Medical Hx/Surgical Hx ER: CVA/TIA, dementia, facial cancer, anemia, acute respiratory failure, hyperlipidemia, hypothyroidism , unspecified dementia, hydrocepalus Subjective Information 76 year old male from SNF. RD consult for Tai Poole. Pt is non-verbal, trach on vent, resting with eyes closed. Observed no tube feeding at this time. Confirmed with RN, order for on at 12pm. 160lb past two adm at this hospital within this year, CBW 151lb on EMR, questionable weights, using IBW for calculations. Current Diet Order/ Nutrition Support Diabetisource 65ml/hr x 20hrs, 12pm on and 8am off Pertinent Medications Vitamin C, Colace, Iron, Lasix , Novolog, Culturelle, Morphine, Zofran, Zinc Sulfate Pertinent Labs 09/15: A1c 6.4H 09/16: glucose 145H Nutritional Hx/Data Height 1.73 m Height (Calculated Centimeters) 172.7 Current Weight (lbs) 68.492 kg Weight (Calculated Kilograms) 68.5 Weight (Calculated Grams) 83708.4 Usual body Weight (lbs) 160 [place] Body Weight 154 Weight Status Approriate GI Symptoms Cultural/Ethnic/Buddhism Belief [facility] order: Glucerna 1.2 at 65ml/hrs x 20hrs, on at 12pm and off at 8am, providing 1560kcal. 75ml water flush every 3hrs x 20hrs. Skin Integrity/Comment: Tai Poole. primary education professor: decubitus pressure area left medial back Estimated Nutritional Goals Calories/Kcals/Kg IBW 154lb/70kg Kcals Calculated 1750-2100kcal (25-30kcal/kg) Protein g/kg: IBW Protein Calculated 70-91g (1-1.3g/kg) Fluid: ml 1750-2100ml (1ml/kcal) Nutritional Problem 1. Problem Problem Inadequate intake from enteral nutrition infusion related to Etiology estimated nutritional needs aeb Signs/Symptoms: current order 89% of lower end of estimated kcal needs using ideal body weight at 25kcal/ kg Intervention/Recommendation Comments 1. Recommend increasing tube feeding rate to Diabetisource at 75ml/hr x 20hrs, providing 1800kcal and 90g to provide to meet 100% of lower end of estimated kcal and prot needs. Expected Outcomes/Goals Expected Outcomes/Goals 1. Pt to meet 100% of estimated nutritional needs on tube feeding with tolerance.
--- NOTE | 2016-09-21 19:03 | General Progress Note ---
Subjective - Review of Systems Service Date: 09/21/16 Subjective: on vent left face tumor Objective - Results Result Diagrams: 09/21/16 04:08 09/21/16 04:08 Recent Labs: Laboratory Last Values WBC 11.4 Th/cmm (4.8-10.8) H 09/21/16 04:08 RBC 3.67 Mil/cmm (3.80-5.80) L 09/21/16 04:08 Hgb 10.4 gm/dL (12.6-17.4) L D 09/21/16 04:08 Hct 30.8 % (39.0-49.0) L D 09/21/16 04:08 MCV 84.0 fl (80-99) 09/21/16 04:08 MCH 28.3 pg (27.0-31.0) 09/21/16 04:08 MCHC Differential 33.7 pg (28.0-36.0) 09/21/16 04:08 RDW 15.8 % (11.5-20.0) 09/21/16 04:08 Plt Count 204 Th/cmm (150-400) 09/21/16 04:08 MPV 8.2 fl 09/21/16 04:08 Neutrophils % 69.6 % (40.0-80.0) 09/21/16 04:08 Band Neutrophils % 3 % (0-10) 09/20/16 07:20 Lymphocytes % 16.1 % (20.0-50.0) L 09/21/16 04:08 Monocytes % 7.2 % (2.0-10.0) 09/21/16 04:08 Eosinophils % 7.1 % (0.0-5.0) H 09/21/16 04:08 Basophils % 0.0 % (0.0-2.0) 09/21/16 04:08 Neutrophils (Manual) 57 % (40-80) 09/20/16 07:20 Lymphocytes 18 % (20-50) L 09/20/16 07:20 Monocytes 11 % (2-10) H 09/20/16 07:20 Eosinophils 10 % (0-5) H 09/20/16 07:20 Basophils 1 % (0-3) 09/20/16 07:20 Hypochromia 1+ 09/17/16 04:42 Platelet Estimate ADEQUATE (NORMAL) 09/20/16 07:20 Platelet Morphology NORMAL (NORMAL) 09/20/16 07:20 Polychromasia 1+ 09/20/16 07:20 Anisocytosis 1+ 09/19/16 10:15 RBC Morph Micro Appear ABNORMAL (NORMAL) 09/20/16 07:20 Total Retics Counted 8.5 % (0.5-1.5) H 09/18/16 04:27 Absolute Retic 232.9 Th/cmm 09/18/16 04:27 Corrected Retic Count 4.3 % (0.5-1.5) H 09/18/16 04:27 Haptoglobin 296 mg/dL (34-200) H 09/18/16 04:27 PT 9.9 SECONDS (9.5-11.5) 09/15/16 19:30 INR 0.95 (0.5-1.4) 09/15/16 19:30 PTT (Actin FS) 29.4 SECONDS (26.0-38.0) 09/15/16 19:30 Specimen Source Arterial 09/17/16 15:10 Sample Site Left Radial 09/17/16 15:10 pH 7.52 (7.35-7.45) H 09/17/16 15:10 pCO2 46.0 mmHg (35.0-45.0) H 09/17/16 15:10 pO2 56.0 mmHg (80.0-100.0) L 09/17/16 15:10 HCO3 35.0 mEq/L (20.0-26.0) H 09/17/16 15:10 Base Excess 13.1 mEq/L (-3.0-3.0) H 09/17/16 15:10 O2 Saturation 92.0 % (92.0-100.0) 09/17/16 15:10 Gary Test YES 09/17/16 15:10 Vent Rate 16 09/17/16 15:10 Inspired O2 50 09/17/16 15:10 Tidal Volume 400 09/17/16 15:10 PEEP 5 09/17/16 15:10 Pressure (ins/psv/peep) NA 09/17/16 15:10 Critical Value E.VAZQUEZ 09/17/16 15:10 Sodium 140 mEq/L (136-145) 09/21/16 04:08 Potassium 3.7 mEq/L (3.5-5.1) 09/21/16 04:08 Chloride 100 mEq/L (98-107) 09/21/16 04:08 Carbon Dioxide 33.9 mEq/L (21.0-31.0) H 09/21/16 04:08 Anion Gap 9.8 (7.0-16.0) 09/21/16 04:08 BUN 27 mg/dL (7-25) H 09/21/16 04:08 Creatinine 0.6 mg/dL (0.7-1.3) L 09/21/16 04:08 Est GFR ( Amer) TNP 09/21/16 04:08 Est GFR (Non-Af Amer) TNP 09/21/16 04:08 BUN/Creatinine Ratio 45.0 09/21/16 04:08 Glucose 146 mg/dL (70-105) H 09/21/16 04:08 POC Glucose 161 MG/DL (70 - 105) H 09/21/16 17:22 Hemoglobin A1c % 6.4 % (4.0-6.0) H 09/15/16 20:30 Whole Bld Lactic Acid 0.94 mmol/L (0.60-1.99) 09/15/16 19:30 Calcium 9.3 mg/dL (8.6-10.3) 09/21/16 04:08 Iron 30 ug/dL (38-169) L 09/18/16 04:27 TIBC 212 ug/dL (250-450) L 09/18/16 04:27 Iron Saturation 14 % (15-55) L 09/18/16 04:27 Unsaturated IBC 182 ug/dL (111-343) 09/18/16 04:27 Ferritin 718 ng/mL (30-400) H 09/18/16 04:27 Total Bilirubin 0.7 mg/dL (0.3-1.0) 09/21/16 04:08 AST 15 U/L (13-39) 09/21/16 04:08 ALT 11 U/L (7-52) 09/21/16 04:08 Alkaline Phosphatase 187 U/L (34-104) H 09/21/16 04:08 Creatine Kinase 24 U/L (30-223) L 09/16/16 11:40 Troponin I 0.02 ng/mL (0.01-0.05) 09/16/16 11:40 B-Natriuretic Peptide 522.0 pg/mL (5.0-100.0) H 09/17/16 04:42 Total Protein 7.6 gm/dL (6.0-8.3) 09/21/16 04:08 Albumin 3.3 gm/dL (4.2-5.5) L 09/21/16 04:08 Globulin 4.3 gm/dL 09/21/16 04:08 Albumin/Globulin Ratio 0.8 (1.0-1.8) L 09/21/16 04:08 Vitamin B12 1025 pg/mL (211-946) H 09/18/16 04:27 Folic Acid >20.0 ng/mL (>3.0) 09/18/16 04:27 Urine Source [place] 09/15/16 21:30 Urine Color YELLOW 09/15/16 21:30 Urine Clarity CLOUDY (CLEAR) 09/15/16 21:30 Urine pH 8.5 09/15/16 21:30 Ur Specific [place] 1.015 (1.005-1.030) 09/15/16 21:30 Urine Protein 30 mg/dL (NEGATIVE) H 09/15/16 21:30 Urine Glucose (UA) NEGATIVE mg/dL (NEGATIVE) 09/15/16 21:30 Urine Ketones NEGATIVE mg/dL (NEGATIVE) 09/15/16 21:30 Urine Blood TRACE (NEGATIVE) 09/15/16 21:30 Urine Nitrate NEGATIVE (NEGATIVE) 09/15/16 21:30 Urine Bilirubin NEGATIVE (NEGATIVE) 09/15/16 21:30 Urine Urobilinogen 0.2 E.U./dL (0.2 - 1.0) 09/15/16 21:30 Ur Leukocyte Esterase MODERATE (NEGATIVE) H 09/15/16 21:30 Urine RBC 2-5 /hpf (0-5) H 09/15/16 21:30 Urine WBC 25-50 /hpf (0-5) H 09/15/16 21:30 Ur Epithelial Cells MODERATE /lpf (FEW) 09/15/16 21:30 Triple Phos Crystals MANY /hpf (FEW) 09/15/16 21:30 Urine Bacteria MODERATE /hpf (NONE SEEN) 09/15/16 21:30 Urine Yeast FEW /hpf (NONE SEEN) H 09/15/16 21:30 Amikacin Peak 30.9 ug/mL (20.0-30.0) H 09/20/16 09:30 Amikacin Trough 14.8 ug/mL (1.0-8.0) H 09/20/16 07:20 Vancomycin Trough 20.0 ug/mL (10-20) 09/18/16 08:00 Blood Type O POSITIVE 09/20/16 15:55 Antibody Screen NEGATIVE 09/20/16 15:55 Crossmatch See Detail 09/20/16 15:55 - Physical Exam Vitals and I&O: Vital Signs Temp 99.5 F 09/21/16 16:50 Pulse 78 09/21/16 17:42 Resp 26 09/21/16 17:42 BP 137/53 09/21/16 17:42 Pulse Ox 98 09/21/16 17:42 Intake & Output 09/21/16 09/21/16 09/22/16 06:59 18:59 06:59 Intake Total 1582 1080 Output Total 1001 1350 Balance 581 -270 Intake: Intake, IV Amount 102 Amikacin 500 mg In 102 Dextrose 5% 100 ml @ 100 mls/hr IV Q12H [facility] Rx#: [id number] Oral 0 Tube Feeding 780 780 Blood Product 500 Other 200 300 Output: Urine 1000 1350 Stool 1 Other: # Bowel Movements 1 Stool Characteristics Soft Formed Formed [place] Active Medications: Current Medications Acetaminophen (Tylenol 650mg/20.3ml Suspension) 650 mg GT Q4H PRN PRN Reason: Fever >101 Stop: 11/15/16 00:34 Last Admin: 09/20/16 20:36 Dose: 650 mg Albuterol/Ipratropium (Duoneb Neb) 3 ml HHN Q6HRT [facility] Stop: 11/15/16 12:59 Last Admin: 09/21/16 13:11 Dose: 3 ml Amlodipine Besylate (Norvasc) 10 mg GT DAILY [facility] Stop: 11/15/16 08:59 Last Admin: 09/21/16 08:22 Dose: 10 mg Ascorbic Acid (Vitamin C) 500 mg GT DAILY [facility] Stop: 11/15/16 08:59 Last Admin: 09/21/16 08:20 Dose: 500 mg Bisacodyl (Dulcolax 10 Mg Supp) 10 mg RC DAILY PRN PRN Reason: Constipation Stop: 11/15/16 00:34 Carbidopa/Levodopa (Sinemet 25mg-100 Mg) 1 tab GT BID [facility] Stop: 11/15/16 08:59 Last Admin: 09/21/16 16:08 Dose: 1 tab Chlorhexidine Gluconate (Peridex) 15 ml MM 0800,2000 [facility] Stop: 11/15/16 07:59 Last Admin: 09/21/16 08:28 Dose: 15 ml Clonidine HCl (Catapres) 0.1 mg GT Q4H PRN PRN Reason: SBP GREATER THAN 160 Stop: 11/15/16 00:34 Diltiazem HCl (Cardizem) 30 mg GT Q6HR [facility] Stop: 11/20/16 05:59 Last Admin: 09/21/16 17:26 Dose: 30 mg Docusate Sodium (Colace) 100 mg PO DAILY [facility] Stop: 11/15/16 08:59 Last Admin: 09/21/16 08:20 Dose: 100 mg Ferrous Sulfate (Iron) 330 mg PO DAILY [facility] Stop: 11/15/16 08:59 Last Admin: 09/21/16 08:21 Dose: 330 mg Finasteride (Proscar) 5 mg GT DAILY [facility] PRN Reason: Protocol Stop: 11/15/16 08:59 Last Admin: 09/21/16 08:20 Dose: 5 mg Furosemide (Lasix) 40 mg IVP BID [facility] Stop: 11/15/16 08:59 Last Admin: 09/21/16 16:08 Dose: 40 mg Heparin Sodium (Porcine) (Heparin) 5,000 units SUBQ Q12HR [facility] Stop: 11/15/16 08:59 Last Admin: 09/21/16 08:23 Dose: 5,000 units Hydralazine HCl (Apresoline) 50 mg GT TID [facility] Stop: 11/15/16 08:59 Last Admin: 09/21/16 14:00 Dose: 50 mg Amikacin Sulfate 650 mg/ (Dextrose) 102.6 mls @ 100 mls/hr IV Q24HR [facility] Stop: 11/21/16 07:59 Insulin Aspart (Novolog Insulin Sliding Scale) 0 units SUBQ Q6HR [facility] PRN Reason: Protocol Stop: 11/15/16 13:14 Last Admin: 09/21/16 17:25 Dose: 2 units Lactobacillus Rhamnosus (Culturelle) 1 each GT DAILY [facility] Stop: 11/15/16 08:59 Last Admin: 09/21/16 08:21 Dose: 1 each Levetiracetam (Keppra) 500 mg PO Q12H [facility] Stop: 11/15/16 00:34 Last Admin: 09/21/16 12:42 Dose: 500 mg Lorazepam (Ativan) 1 mg IVP Q6HR PRN; Protocol PRN Reason: Anxiety Stop: 11/15/16 03:31 Losartan Potassium (Cozaar) 50 mg GT BID [facility] Stop: 11/15/16 08:59 Last Admin: 09/21/16 16:08 Dose: 50 mg Miscellaneous (Amikacin Iv Per Pharmacy) 1 ea PRN PRN PRN Reason: PROTOCOL Stop: 11/17/16 15:21 Miscellaneous (Probiotic Screen) 1 ea PRN PRN PRN Reason: PROTOCOL Stop: 11/18/16 09:26 Morphine Sulfate (Morphine) 1 mg IVP Q4HR PRN PRN Reason: Pain (Moderate) Stop: 11/15/16 03:29 Morphine Sulfate (Morphine) 2 mg IVP Q4HR PRN PRN Reason: Pain (Severe) Stop: 11/15/16 03:33 Last Admin: 09/16/16 04:26 Dose: 2 mg Ondansetron HCl (Zofran) 4 mg IV Q4H PRN PRN Reason: Nausea / Vomiting Stop: 11/15/16 03:29 Senna (Senna) 17.2 mg GT HS [facility] Stop: 11/15/16 20:59 Last Admin: 09/20/16 20:37 Dose: 17.2 mg Sodium Chloride (Nacl Tab) 1 gm GT BID [facility] Stop: 11/15/16 08:59 Last Admin: 09/21/16 16:07 Dose: 1 gm Zinc Sulfate (Zinc Sulfate) 220 mg GT DAILY [facility] Stop: 11/15/16 08:59 Last Admin: 09/21/16 08:21 Dose: 220 mg General: Other (awake) Neck: Supple Cardiovascular: Regular rate, Normal S1, Normal S2 Abdomen: Bowel sounds, Soft (s/p trach and peg) - Procedures Procedures: Procedures Procedure Code Date BLOOD TRANSFUSION SERVICE 37923 08/25/16 EGD ENDO MUCOSAL RESECTION 83189 08/25/16 EXCISION OF DUODENUM, ENDO, DIAGN [id number] 08/25/16 EXCISION OF STOMACH, ENDO, DIAGN [id number] 08/25/16 RESPIRATORY VENTILATION, 24-96 CONSECUTIVE HOURS [id number] 08/25/16 RESPIRATORY VENTILATION, GREATER THAN 96 CONSECUTIVE HOURS [id number] 09/15/16 TRANSFUSE NONAUT RED BLOOD CELLS IN PERIPH VEIN, PERC 84191F7 08/25/16 VENT MGMT INPAT INIT DAY 09/15/16 VENT MGMT INPAT SUBQ DAY 09/15/16 Assessment/Plan - Problem List Patient Problems: All Active Problems PENILE LACERATION/SKIN TEAR WITH EDEMA (Acute) Anemia (Acute) D64.9 H/O: CVA (cerebrovascular accident) (Acute) Z86.73 Respiratory failure after trauma (Acute) J95.821 Sacral decubitus ulcer, stage IV (Acute) L89.154 Status post gastrostomy tube placement, follow-up exam (Acute) Z09 Status post tracheostomy (Acute) Z93.0 UTI (urinary tract infection) (Acute) Ventilator dependent (Acute) Z99.11 ulcer beneath penis (Acute) - Plan Plan: discharge planning Nutritional Asmnt/Malnutr-PDOC - Dietary Evaluation Malnutrition Findings (Please click <Entered> for more info): Nutritional Asmnt/Malnutrition Start: 09/16/16 11: 52 Text: Status: Complete Freq: Document 09/16/16 11:52 GSUN (Rec: 09/16/16 11:59 GSUN [email or web address]) Nutritional Asmnt/Malnutrition Patient General Information Nutritional Screening Consult Diagnosis ER: left lower lobe PNA, UTI, fluid overload, scrotal edema Pertinent Medical Hx/Surgical Hx ER: CVA/TIA, dementia, facial cancer, anemia, acute respiratory failure, hyperlipidemia, hypothyroidism , unspecified dementia, hydrocepalus Subjective Information 76 year old male from SNF. RD consult for Tai 11. Pt is non-verbal, trach on vent, resting with eyes closed. Observed no tube feeding at this time. Confirmed with RN, order for on at 12pm. 160lb past two adm at this hospital within this year, CBW 151lb on EMR, questionable weights, using IBW for calculations. Current Diet Order/ Nutrition Support Diabetisource 65ml/hr x 20hrs, 12pm on and 8am off Pertinent Medications Vitamin C, Colace, Iron, Lasix , Novolog, Culturelle, Morphine, Zofran, Zinc Sulfate Pertinent Labs 09/15: A1c 6.4H 09/16: glucose 145H Nutritional Hx/Data Height 1.73 m Height (Calculated Centimeters) 172.7 Current Weight (lbs) 68.492 kg Weight (Calculated Kilograms) 68.5 Weight (Calculated Grams) 47078.4 Usual body Weight (lbs) 160 [place] Body Weight 154 Weight Status Approriate GI Symptoms Cultural/Ethnic/Mosque Belief SNF order: Glucerna 1.2 at 65ml/hrs x 20hrs, on at 12pm and off at 8am, providing 1560kcal. 75ml water flush every 3hrs x 20hrs. Skin Integrity/Comment: Tai [place]. 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 Problem Problem Inadequate intake from enteral nutrition infusion related to Etiology estimated nutritional needs aeb Signs/Symptoms: current order 89% of lower end of estimated kcal needs using ideal body weight at 25kcal/ kg Intervention/Recommendation Comments 1. Recommend increasing tube feeding rate to Diabetisource at 75ml/hr x 20hrs, providing 1800kcal and 90g to provide to meet 100% of lower end of estimated kcal and prot needs. Expected Outcomes/Goals Expected Outcomes/Goals 1. Pt to meet 100% of estimated nutritional needs on tube feeding with tolerance.
== END 2016-09-21 20:50 | DRG 870 ==
LOC: ER 18:53 → ICU 22:10
PROVIDERS: ADMIT Internal Medicine; ATTEND Internal Medicine
PROC: 5A1955Z Respiratory Ventilation, Greater than 96 Consecutive Hours (ICD-10-PCS; principal; 2016-09-15)
PROC: 30233N1 Transfusion of Nonautologous Red Blood Cells into Peripheral Vein, Percutaneous Approach (ICD-10-PCS; 2016-09-20)
DX: A41.9 Sepsis, unspecified organism (principal); J69.0 Pneumonitis due to inhalation of food and vomit; J96.20 Acute and chronic respiratory failure, unspecified whether with hypoxia or hypercapnia; R65.21 Severe sepsis with septic shock; Z99.11 Dependence on respirator [ventilator] status; L89.152 Pressure ulcer of sacral region, stage 2; Z93.0 Tracheostomy status; R13.10 Dysphagia, unspecified; N39.0 Urinary tract infection, site not specified; I47.1 Supraventricular tachycardia; F03.90 Unspecified dementia, unspecified severity, without behavioral disturbance, psychotic disturbance, mood disturbance, and anxiety; E78.5 Hyperlipidemia, unspecified; E03.9 Hypothyroidism, unspecified; N49.2 Inflammatory disorders of scrotum; I69.30 Unspecified sequelae of cerebral infarction; I50.9 Heart failure, unspecified; D50.9 Iron deficiency anemia, unspecified; E87.6 Hypokalemia; I48.0 Paroxysmal atrial fibrillation; Z93.1 Gastrostomy status
CPT/HCPCS: 36415-UA; 71010-TC; 80053-TC; 80150-TC; 80202-TC; 81001-TC; 82550-TC; 82607-90; 82728-90; 82746-90; 82803-TC; 82948-90; 83010-90; 83036-90; 83540-90; 83550-90; 83605; 83880-TC; 84484-TC; 85007-TC; 85014-TC; 85018-TC; 85025-TC; 85027-TC; 85044-TC; 85610-TC; 85730-TC; 86850-TC; 86900-TC; 86901-TC; 86922-TC; 87070; 87086-90; 93005; 94003; 96375; J0278; J0360; J1644; J1815; J1940; J2270; J2543; J3370; J7040; P9016; Z7610